=== PATIENT | female | born 1970 | race Caucasian/White ===

== ENCOUNTER → 2017-10-29 16:53 | Outpatient (CLI) | payer BC, SELFPAY ==
--- NOTE | 2017-10-29 16:58 | MRI_ITS ---
STUDY: MRI BRAIN WITH AND WITHOUT CONTRAST REASON FOR EXAM: Female, 46 years old. Headache. TECHNIQUE: Standardized multiplanar fat and water weighted pulse sequences were obtained. 7 ml of Gadavist contrast material was administered intravenously for the contrast portion of the examination. Several images are limited by patient motion. COMPARISON: Prior comparable comparison studies are not available for review at this time. FINDINGS: Normal size of the ventricles and extra-axial spaces for the patient's age. There is a small focus of abnormal T2 hyperintensity within the high right frontal lobe measuring 5.3 mm in size. The white matter has a normal appearance otherwise. This is difficult to see on the T1 images. There is no evidence for recent intracranial ischemia or other cause of cytotoxic edema on diffusion weighted imaging (DWI). Normal T2* images of the brain without demonstrated susceptibility artifact. There is no demonstrated hemosiderin stain. Normal bilateral basal ganglia. Normal thalami. There is no extra-axial fluid accumulation. Normal flow voids within the major intracranial circulation suggesting patency by spin echo criteria. Normal venous enhancement. There is no enhancing intra-axial or extra-axial abnormality. Normal sella turcica, pituitary gland, infundibular stalk, optic chiasm and hypothalamus. Normal tectal plate and pineal gland. Normal midbrain, gracie and medulla. Normal cerebellum. Normal basal cisterns. Normal bilateral temporal bones. Normal bilateral internal auditory canals. No demonstrated orbital abnormality, within the constraints of a routine brain study. There is a small left maxillary mucous retention cyst. Normal calvarium and skull base. Normal visualized soft tissue structures. Normal visualized upper cervical spine. MRI/Brain W/WO Contrast IMPRESSION: 1. Isolated focus of abnormal signal in the white matter of the right frontal lobe. This is nonspecific in its appearance. Differential considerations include sequela of acute inflammatory process and neoplastic etiologies. Follow-up is suggested. 2. No MR evidence for acute infarct. Electronically Signed: Ruth Gayle MD at 11:15 EST , Service support ,
== END ==
LOC: MRI 16:53
PROVIDERS: Family Provider Family Medicine; PCP Family Medicine; Visit Provider Psychiatry & Neurology Neurology
DX: R51 Headache (principal); Z79.899 Other long term (current) drug therapy
CPT/HCPCS: 70553; A9585

== ENCOUNTER → 2017-11-30 17:00 | Outpatient (CLI) | payer BC, SELFPAY ==
--- NOTE | 2017-11-29 | IMM_PTH ---
PATIENT: SARAH BAZAN LOC: [facility] U#:[id number] AGE/SX: 54/F ROOM: RE11/30/[address]: Dr. Anny Marie DO : 1970 BED: DIS: SPEC #: [id number] RECD: 12/02/17 11:35 STATUS: JEFF YONI #: [id number] RIGO: 11/29/17 00:[address]: Anny Marie DEPT: IMMUNOHISTOCHEMISTRY RECD BY: Bety Cazares Tissues: Skin of arm Procedures: KI-67 (add) MACRO (add) P53 (add) Pankeratin (add) MELAN-A (initial) S-100 (add) PHYSICIAN & INSTITUTION [place] [id number] SPECIMEN INFORMATION: Tissue Source: Left upper arm Clinical Info: Atypical nevus Specimen Number: [id number] CPT code: 88752, 36185 x5 METHODOLOGY: Deparaffinized sections of prefer/formalin-fixed tissue or PAP/DQ stained slides are incubated with monoclonal/polyclonal antibodies/oligonucleotide probes. Localization is made via biotin free immunoperoxidase method. Appropriate controls are performed and reacted as expected. Results on target cell population are indicated in the following table: RESULTS: ANTIBODY / CLONE RESULT S-100 (4C4.9) positive Melan A (A103) positive AE1-3 (AE1/AE3/PCK26) negative P53 (DO-7) negative Ki-67 (30-9) negative Macro (HAM-56) negative These tests were developed and their performance characteristics determined by [facility]. They may not have been cleared or approved by the U.S. Food and Drug Administration. The FDA has determined that such clearance or approval is not necessary. INTERPRETATION: Left upper arm, excisional biopsy: Consistent with compound nevus. AM:octavio 12/03/17
--- NOTE | 2017-11-29 17:30 | LES_PTH ---
PATIENT: SARAH BAZAN LOC: [facility] U#:[id number] AGE/SX: 54/F ROOM: RE11/30/[address]: Dr. Anny Marie DO : 1970 BED: DIS: SPEC #: [id number] RECD: 12/01/17 12:53 STATUS: JEFF YONI #: [id number] RIGO: 11/29/17 17:[address]: Anny Marie DEPT: SURGICAL PATHOLOGY RECD BY: Surinder Berry Tissues: Skin of arm Procedures: Surgery Specimen Level IV HEADER OPERATION: Left upper arm excisional biopsy PRE-OP DIAGNOSIS: Atypical nevus, rule out melanoma TISSUE SUBMITTED: Left upper arm MICROSCOPIC DIAGNOSIS Lesion of left upper arm, biopsy: Compound nevus with predominantly intradermal component. AM:octavio 12/02/17 COMMENT Immunohistochemistry ([id number]) supports the above diagnosis. Case has been reviewed in consultation with Dr. Felder who concurs with the above diagnosis. IDC:SJ MICROSCOPIC DESCRIPTION Slides are reviewed. GROSS DESCRIPTION Received in fixative is one container labeled with the patient's name and designated left upper arm. The specimen consists of two irregular fragments of sandoval soft tissue that in aggregate measure 0.5 x 0.3 x 0.1 cm. The specimen is totally submitted in one cassette. / AM:octavio 12/01/17 TC:5 CPT: 75080
== END ==
PROVIDERS: Family Provider Family Medicine; PCP Family Medicine; Visit Provider Family Medicine
DX: D22.62 Melanocytic nevi of left upper limb, including shoulder (principal)
CPT/HCPCS: 88305; 88341; 88342

== ENCOUNTER → 2018-02-04 16:30 | Outpatient (CLI) | payer BC, SELFPAY ==
[2018-02-05 13:48] LABS: Chlamydia Trachomatis by PCR Negative (Negative); Neisserai gonorrhoeae by PCR Negative (Negative); Probe Check PASS; Sample Adequacy Control PASS; Specimen Processing Control PASS
[2018-02-11 10:16] LABS: HPV HC, High Risk Negative (Negative)
== END ==
PROVIDERS: Visit Provider Family Medicine
DX: Z12.4 Encounter for screening for malignant neoplasm of cervix (principal); Z11.3 Encounter for screening for infections with a predominantly sexual mode of transmission; N92.6 Irregular menstruation, unspecified; N93.0 Postcoital and contact bleeding
CPT/HCPCS: 87491; 87591; 87624; 88175; G0145

== ENCOUNTER → 2018-02-09 16:18 | Outpatient (CLI) | payer BC, SELFPAY ==
--- NOTE | 2018-02-09 16:42 | US_ITS ---
STUDY: ULTRASOUND TRANSVAGINAL CLINICAL: Female, 47 years old. Abnormal uterine bleeding TECHNIQUE: Transvaginal COMPARISON: None. FINDINGS: Normal uterine size measuring 8.5 x 4.6 x 3.9 cm in maximal craniocaudal dimension. There is an anterior fibroid at uterine body measuring 11 x 9 mm. Normal endometrial thickness measuring 8 mm and appears hyperechoic. There are no endometrial masses, and there is no fluid in the endometrial cavity. Nabothian cyst at the uterine cervix. Normal right ovary, measuring 1.8 x 1.5 x 1.1 cm. There are multiple follicles without a dominant cyst. Normal left ovary, measuring 2.2 x 2.1 x 1.5 cm. There is a 1.2 cm cyst. There is no free fluid in the pelvis. The urinary bladder has a volume of 181 cc during imaging. US/Pelvic (Non ) IMPRESSION: Dominant follicle or cyst of the left ovary. Nabothian cyst. Uterine fibroid. Electronically Signed: James Rivera DO at 22:38 EDT Tel [phone], Service support ,
--- NOTE | 2018-02-09 16:52 | US_ITS ---
STUDY: ULTRASOUND TRANSVAGINAL CLINICAL: Female, 47 years old. Abnormal uterine bleeding TECHNIQUE: Transvaginal COMPARISON: None. FINDINGS: Normal uterine size measuring 8.5 x 4.6 x 3.9 cm in maximal craniocaudal dimension. There is an anterior fibroid at uterine body measuring 11 x 9 mm. Normal endometrial thickness measuring 8 mm and appears hyperechoic. There are no endometrial masses, and there is no fluid in the endometrial cavity. Nabothian cyst at the uterine cervix. Normal right ovary, measuring 1.8 x 1.5 x 1.1 cm. There are multiple follicles without a dominant cyst. Normal left ovary, measuring 2.2 x 2.1 x 1.5 cm. There is a 1.2 cm cyst. There is no free fluid in the pelvis. The urinary bladder has a volume of 181 cc during imaging. US/Transvaginal Non- IMPRESSION: Dominant follicle or cyst of the left ovary. Nabothian cyst. Uterine fibroid. Electronically Signed: James Rivera DO at 22:38 EDT Tel [phone], Service support ,
== END ==
PROVIDERS: Family Provider Family Medicine; PCP Family Medicine; Visit Provider Family Medicine
DX: N93.9 Abnormal uterine and vaginal bleeding, unspecified (principal)
CPT/HCPCS: 76830; 76856; 93976

== ENCOUNTER → 2018-02-19 11:00 | Outpatient (CLI) | payer BC, SELFPAY ==
--- NOTE | 2018-02-19 | EMB_PTH ---
PATIENT: SARAH BAZAN LOC: [facility] U#:[id number] AGE/SX: 54/F ROOM: RE02/19/[address]: Dr. Betty Hook MD : 1970 BED: DIS: SPEC #: [id number] RECD: 02/22/18 08:15 STATUS: JEFF YONI #: [id number] RIGO: 02/19/18 00:[address]: Betty Hook DEPT: SURGICAL PATHOLOGY RECD BY: Bety Cazares Tissues: Endometrium, NOS Procedures: Surgery Specimen Level IV HEADER OPERATION: Endometrial biopsy PRE-OP DIAGNOSIS: Abnormal uterine bleeding TISSUE SUBMITTED: Endometrial lining MICROSCOPIC DIAGNOSIS Endometrium, biopsy: Polypoid fragments of endometrium with mild disorder. Necrotic tissue with fibrinopurulent exudate. Chronic inflammation. AM:octavio 02/23/18 COMMENT Infarcted and necrotic polyp is a possibility. Clinical correlation is suggested. Case has been reviewed in consultation with Dr. Felder who concurs with the above diagnosis. IDC:SJ MICROSCOPIC DESCRIPTION Slides are reviewed. GROSS DESCRIPTION Received is one container labeled with the patient's name and not further designated. The specimen consists of multiple fragments of hemorrhagic soft tissue that in aggregate measure 2 x 1 x 0.1 cm. The specimen is totally submitted in one cassette. / FERNANDA:octavio 02/22/18 TC:2 [facility]: [id number]
--- NOTE | 2018-02-19 11:00 | DT_ITS ---
This patient was seen during an EMR downtime February 15, 2018 - February 22, 2018. This patient may have a combination of paper and electronic documentation or all paper documentation. All documentation is viewable within the e-chart portion of [employer] for each patient visit.
== END ==
PROVIDERS: Visit Provider Obstetrics & Gynecology
DX: N93.9 Abnormal uterine and vaginal bleeding, unspecified (principal)
CPT/HCPCS: 88305

== ENCOUNTER → 2018-05-11 10:24 | Outpatient (CLI) | payer BC, SELFPAY ==
[2018-05-11 10:39] LABS: Absolute Lymphocyte Count 1.63 X10^3/ul (0.83-4.51); Absolute Neutrophil Count 3.6 X10^3/uL (2.0-7.7); Basophil# 0.03 X10^3/uL; Basophil% 0.5 % (0-1); Eosinophil# 0.22 X10^3/uL; Eosinophils% 3.8 % (0-5); Hematocrit 41.7 % (37-47); Hemoglobin 13.6 g/dl (12.0-15.0); Lymphocyte # 1.63 X10^3/ul (4.0); Lymphocyte % 28.2 % (19-41); Mean Corp Hgb Conc 32.6 g/gl (32-36); Mean Corpuscular Hgb 30.3 pg (27.0-32.0); Mean Corpuscular Volume 92.9 fL (81-99); Mean Platelet Vol. 10.7 fl (6.2-12.0); Monocyte# 0.28 X10^3/uL; Monocyte% 4.8 % (0-10); Neutrophil # 3.62 X10^3/uL (2.7-7.7); Neutrophil % 62.5 % (47-70); POSITIVE COUNT NO; POSITIVE DIFFERENTIAL NO; POSITIVE MORPHOLOGY NO; Platelet Count 314 K/mm3 (150-450); RBC Distribution Width CV 13.7 % (11.6-14.6); RBC Distribution Width SD 46.7 fl (35.1-43.9); Red Blood Count 4.49 M/mm3 (4.2-5.4); White Blood Count 5.8 K/mm3 (4.4-11.0)
== END ==
PROVIDERS: Family Provider Family Medicine; PCP Family Medicine; Visit Provider Obstetrics & Gynecology
DX: N93.9 Abnormal uterine and vaginal bleeding, unspecified (principal)
CPT/HCPCS: 36415; 85025

== ENCOUNTER 2018-06-09 12:13 | Day surgery (SDC) | payer BC, SELFPAY ==
[2018-06-09] VITALS (9 sets, daily range): BP systolic 109–117; BP diastolic 71–78; PULSE 64–76; RESP 16–18; TEMP 36.6–37; O2SAT 95–100; BMI 27.7
[2018-06-09 12:40] LABS: Internal QC Validated? YES +Cl - CLEAR BKGD; Pregnancy, Urine Negative Negative
[2018-06-09 12:43] LABS: Hematocrit 40.1 % (37-47); Hemoglobin 13.7 g/dl (12.0-15.0); Mean Corp Hgb Conc 34.2 g/gl (32-36); Mean Corpuscular Hgb 30.9 pg (27.0-32.0); Mean Corpuscular Volume 90.3 fL (81-99); Mean Platelet Vol. 10.9 fl (6.2-12.0); Platelet Count 269 K/mm3 (150-450); RBC Distribution Width CV 13.3 % (11.6-14.6); RBC Distribution Width SD 43.3 fl (35.1-43.9); Red Blood Count 4.44 M/mm3 (4.2-5.4); White Blood Count 6.7 K/mm3 (4.4-11.0)
[2018-06-09 12:46] LABS: Scan Indicated on CBC? Y/N NO
--- NOTE | 2018-06-09 13:50 | UTC_PTH ---
PATIENT: SARAH BAZAN LOC: [facility] U#:[id number] AGE/SX: 47/F ROOM: RE06/09/[address]: Dr. Betty Hook MD : 1970 BED: DIS: 06/09/2018 SPEC #: [id number] RECD: 06/09/18 16:17 STATUS: JEFF YONI #: [id number] RIGO: 06/09/18 13:[address]: Betty oHok DEPT: SURGICAL PATHOLOGY RECD BY: Manuel Clarke ENTERED: 06/10/18 09:27 SP TYPE: NORA PECK DR: Dr. Anny Marie DO Tissues: Uterine cervix, NOS Procedures: Surgery Specimen Level IV HEADER OPERATION: Hysterectomy, dilation and curettage, Fany PRE-OP DIAGNOSIS: Abnormal uterine bleeding TISSUE SUBMITTED: Uterine curettings MICROSCOPIC DIAGNOSIS Uterine curettings: Weakly proliferative endometrium and focal area consistent with exogenous hormone effects. SJ:octavio 06/11/18 COMMENT Please make reference to previous specimen ([id number]) endometrium, biopsy with diagnosis of polypoid fragments of endometrium with mild disorder, necrotic tissue with fibrinopurulent exudate and chronic inflammation. MICROSCOPIC DESCRIPTION Slides are reviewed. GROSS DESCRIPTION Received in fixative is one container labeled with the patient's name and designated uterine curettings. The specimen consists of multiple fragments of hemorrhagic soft tissue that in aggregate measure 2.5 x 2 x 0.3 cm. The entire specimen is submitted in one cassette. / FERANNDA:octavio 06/10/18 TC:5 CPT: 77186
--- NOTE | 2018-06-09 14:37 | PCM.HP.STD ---
Problem List (1) Thickened endometrium Status: Acute History of Present Illness Date of Admission: 06/09/18 The patient is a 47 year old F prsents with AUB for the last few months failed OCP. normal us plans d and c hysterosocpy endometrial ablation. Past Medical History Medical History: Medical History (Last Reviewed 03/03/18 @ 15:17 by Brianda Mcneal) delivery due to maternal disorder Allergies codeine Adverse Reaction (Intermediate, Verified 06/09/18 12:54) Vomiting Home Medications: Ambulatory Orders Medication Instructions Recorded Multivitamin [Multiple Vitamins] 1 tab PO DAILY 02/25/17 Topiramate [Topamax] 100 mg PO BID 03/06/17 Vitamin B Complex 1 ea PO DAILY 03/06/17 buPROPion XL [Wellbutrin Xl] 300 mg PO DAILY 03/06/17 promethazine 12.5 mg tablet 12.5 mg PO Q6H PRN #30 tab 04/19/18 megestrol 40 mg tablet 40 mg PO DAILY #60 tab 05/12/18 Ascorbic Acid [Vitamin C] 500 mg PO DAILY@0800 06/07/18 Citalopram [Celexa] 20 mg PO DAILY 06/07/18 Famotidine [Pepcid] 20 mg PO DAILY 06/07/18 Levocetirizine Dihydrochloride 5 mg PO DAILY 06/07/18 [Xyzal] Magnesium Oxide [Magnesium] 400 mg PO BID 06/07/18 Montelukast [Singulair] 10 mg PO DAILY 06/07/18 Zorisamide 50 mg PO BID 06/07/18 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 Smoking Status: Current every day smoker Tobacco Use: Non-smoker Review of Systems Constitutional: Denies: Fever, Malaise Eyes: Denies: Blurred vision, Vision Change HEENT: Denies: Head Aches, Visual Changes Cardiovascular: Denies: Chest Pain, Palpitations Respiratory: Denies: Cough, Shortness of Breath, Wheezing Gastrointestinal: Denies: Abdominal Pain, Diarrhea, Nausea, Vomiting Genitourinary: Denies: Dysuria, Hematuria Musculoskeletal: Denies: Joint Pain, Muscle pain Skin: Denies: Lesions, Rash Neurological: Denies: Blurred vision, Focal weakness, Headaches Psychiatric: Denies: Anxiety, Depression Endocrine: Denies: Heat/ Cold Intolerance Hematologic/ Lymphatic: Denies: Easy Bruising, Easy Bleeding VTE Information - Inpt Only VTE Present on Admission: No Patient Problems: Active and Suspected Problems (Last Reviewed 03/03/18 @ 15:17 by Brianda Mcneal) Thickened endometrium (Acute) - Physical Exam General: Alert, Oriented x3, Cooperative HEENT: Atraumatic, PERRLA, EOMI, Normocephalic Neck: Supple, No JVD, Negative Carotid Bruits Lungs: Clear to auscultation, Normal air movement Cardiovascular: Regular rate, No murmurs Abdomen: Bowel Sounds Present, Soft, Non Tender Extremities: No edema, Capillary Refill Less than 3 Seconds Skin: No rashes, No breakdown Musculoskeletal: No Tenderness to Palpation of Joints or Extremities Neurological: Cranial nerves II-XII grossly intact Psych/Mental Status: Normal Affect, Appropriate Vital Signs Temp Pulse Resp BP Pulse Ox 98.6 F 74 16 116/72 97 06/09/18 12:57 06/09/18 12:57 06/09/18 12:57 06/09/18 12:57 06/09/18 12:57 Oxygen Delivery Method Room Air Weight: 151 lb 12.8 oz Body Mass Index (BMI) 27.7 Laboratory Tests Past 24 Hrs 06/09/18 06/09/18 06/09/18 12:25 12:35 12:35 WBC 6.7 RBC 4.44 Hgb 13.7 Hct 40.1 MCV 90.3 MCH 30.9 MCHC 34.2 RDW 13.3 RDW Differential 43.3 Plt Count 269 MPV 10.9 Urine Test Negative Blood Type A POSITIVE Antibody Screen NEGATIVE Assessment/Plan All Active Problems (Last Reviewed 03/03/18 @ 15:17 by Brianda Mcneal) Thickened endometrium (Acute) 47 yo with AUB plan d and c hysteroscopy and radha ablation. discussed surgical risks including risks of anesthesia, infection, bleeding, injury to bowel, bladder or blood vessels, and patient wishes to proceed with surgery.
--- NOTE | 2018-06-09 14:50 | PCM.OPRPT ---
Problem List (1) Thickened endometrium Status: Acute (2) Abnormal uterine bleeding Status: Acute Report of Operation Date of Procedure: 06/09/18 Pre-Operative Diagnosis: aub Post-Operative Diagnosis: same Surgery/Procedure Performed:: d and c hysteroscopy fany ablation Description of Surgical Findings:: same Type of Anesthesia:: Local MAC Special Medications: none Specimen's removed: emc Drains: none Estimated Blood Loss (mL): minimal Fluids Replaced: crystalloid Description of Procedure: Patient was prepped and draped in a normal sterile fashion under MAC anesthesia. A weighted speculum was placed in the vagina and the anterior lip of the cervix was grasped with a single-tooth tenaculum. A paracervical block was placed with 1% lidocaine. Cervix was progressively dilated to allow passage of a 5 mm hysteroscope. The lining was fully visualized and noted to have no abnormality. Uterine sounded to 8.5 cm. Curettage was performed and moderate amount of tissue was obtained, sent to pathology. The Fany device was opened and the cavity length was found to be 4.5 cm. Device was inserted into the uterus and balloon inflated and device deployed. Integrity of the cavity was confirmed and a 2 minute treatment cycle was completed without complication. All instruments were removed from the vagina and excellent hemostasis was noted. Patient was awoken and taken to recovery in stable condition. Grafts/Implants Used: none - Complications none - Admit VTE Documentation VTE Present on Admission: No
--- NOTE | 2018-06-09 15:21 | DCINST_ITS ---
Discharge Diet: No Restrictions Discharge Activity: Return to Normal Activity, May Shower, May Take a Tub Bath Allergies/Adverse Reactions: Allergies codeine Adverse Reaction (Intermediate, Verified 06/09/18 12:54) Vomiting Medications to take at Discharge Multivitamin [Multiple Vitamins] 1 tab PO DAILY 02/25/17 Topiramate [Topamax] 100 mg PO BID 03/06/17 Vitamin B Complex 1 ea PO DAILY 03/06/17 buPROPion XL [Wellbutrin Xl] 300 mg PO DAILY 03/06/17 promethazine 12.5 mg tablet 12.5 mg PO Q6H PRN #30 tab 04/19/18 megestrol 40 mg tablet 40 mg PO DAILY #60 tab 05/12/18 Ascorbic Acid [Vitamin C] 500 mg PO DAILY@0800 06/07/18 Citalopram [Celexa] 20 mg PO DAILY 06/07/18 Famotidine [Pepcid] 20 mg PO DAILY 06/07/18 Levocetirizine Dihydrochloride [Xyzal] 5 mg PO DAILY 06/07/18 Magnesium Oxide [Magnesium] 400 mg PO BID 06/07/18 Montelukast [Singulair] 10 mg PO DAILY 06/07/18 Zorisamide 50 mg PO BID 06/07/18 Primary Care Physician: Anny Marie DO [Primary Care Provider] - Test Results: Test results from this visit will be discussed in further detail at your follow- up appointment, if applicable. Please Follow Up With: Betty Hook MD - [phone]
== END 2018-06-09 16:51 | disposition home or self-care (01) ==
LOC: SDC 12:14 → AC 12:15
PROVIDERS: Family Provider Family Medicine; PCP Family Medicine; Visit Provider Obstetrics & Gynecology
PROC: 0UDB8ZZ Extraction of Endometrium, Via Natural or Artificial Opening Endoscopic (ICD-10-PCS; CPT 58558; principal; 2018-06-09 13:40)
DX: N93.9 Abnormal uterine and vaginal bleeding, unspecified (principal); R93.8 Abnormal findings on diagnostic imaging of other specified body structures; K21.9 Gastro-esophageal reflux disease without esophagitis; F32.9 Major depressive disorder, single episode, unspecified; F41.9 Anxiety disorder, unspecified; F17.200 Nicotine dependence, unspecified, uncomplicated; Z79.899 Other long term (current) drug therapy
CPT/HCPCS: 58563; 81025; 85027; 86850; 86900; 88305; J7120

== ENCOUNTER → 2018-07-15 13:22 | Outpatient (CLI) | payer BC, SELFPAY | PROVIDERS: Family Provider Family Medicine; PCP Family Medicine; Visit Provider Family Medicine | DX: R19.7 Diarrhea, unspecified (principal) | CPT/HCPCS: 83630; 87177; 87209; 87493; 87506 ==

== ENCOUNTER 2019-07-18 20:56 | Observation (INO) | payer BC, SELFPAY ==
[2019-07-18 20:57] VITALS: BP 149/74; PULSE 67; RESP 14; TEMP 36.4; O2SAT 100; BMI 31.1
--- NOTE | 2019-07-18 21:50 | CT_ITS ---
STUDY: CT ABDOMEN AND PELVIS WITHOUT CONTRAST REASON FOR EXAM: Female, 48 years old. Right flank pain and nausea RADIATION DOSAGE (If Supplied By Facility): CTDIvol = ( 11.25 ) mGy, DLP = ( 533.84 ) mGycm TECHNIQUE: Transaxial images were obtained from the dome of the diaphragm to the symphysis pubis without oral contrast, and without intravenous contrast. Sagittal and coronal images were reconstructed. Individualized dose optimization techniques were used for this CT. COMPARISON: None. FINDINGS: The visualized lung bases are unremarkable. The visualized portions of the heart are within normal limits. Normal liver. There are multiple gallstones present in mildly distended gallbladder without definitive evidence for acute inflammation.. Normal spleen. Normal pancreas. Normal bilateral adrenal glands. Normal right kidney. Normal left kidney. Normal visualized stomach. Normal small intestine. Mild diverticular changes in the sigmoid colon without evidence for acute diverticulitis. The appendix is visualized and appears normal. Normal abdominal aorta. Normal inferior vena cava. Normal retroperitoneum. Incompletely distended thick-walled bladder likely of no significance. Normal abdominal wall. Lumbar spine demonstrates mild spondylosis CT/Abdomen/Pelvis without Cont IMPRESSION: Mildly distended gallbladder containing multiple stones without definitive evidence for acute cholecystitis. This may be further assessed with HIDA scan if clinically warranted Mild diverticular changes in the sigmoid colon without evidence for acute diverticulitis Electronically Signed: Kwame Campos MD at 22:39 EST , Service support ,
--- NOTE | 2019-07-18 21:51 | ED.DCSUM_ITS ---
History of Present Illness Chief Complaint: Abd Pain Informant: Patient Onset: Today Context: Gradual Onset Current Severity: Moderate Maximum Severity: Moderate Narrative: Patient presents with abdominal pain and distention that started this afternoon around 230. Patient states she ate lunch today and had a bowel movement around 1 PM. She started noticing mid abdominal pain wrapping around the right flank and up towards the right shoulder around 230. She states she has not been passing gas. She is been nauseated but no vomiting. She denies fever. Past surgical history significant only for . Past Medical History - Allergies and Home Meds Allergies/Adverse Reactions: Allergies codeine Adverse Reaction (Intermediate, Verified 07/18/19 20:59) Vomiting Primary Care Physician: Anny Marie DO [Primary Care Provider] - Prior records reviewed: Yes Past Medical History: - - Reviewed Surgical History: - - Smoking Status: Current every day smoker Review of Systems General: Denies: Chills, Fever Eyes: Denies: Visual changes - bilaterally ENT: Denies: Bilateral ear pain Cardiovascular: Denies: Chest pain Respiratory: Denies: Dyspnea, Cough Gastrointestinal: Reports: Abdominal pain, Nausea. Denies: Vomiting Genitourinary: Denies: Dysuria Musculoskeletal: Denies: Extremity Pain Skin: Denies: Rash Hematologic: Denies: Easy bruising Allergy: Denies: Uticaria Physical Exam Vital Signs/Narrative: Vital Signs Temp Pulse Resp BP Pulse Ox 07/18/19 20:57 97.6 F L 67 14 149/74 H 100 Inital Vital Signs reviewed: Yes General: Well nourished, Well developed Head: Normocephalic ENT: Moist mucous membranes Neck: Supple, Nontender Cardiovascular: Regular rate, Regular rhythm Respiratory: No distress, CTA bilaterally Abdomen: Soft, Tender - Mild diffuse tenderness. Abdomen is distended., Hypoactive bowel sounds Extremities: Nontender Skin: Normal color Neurological: Alert, Oriented x3 Psychological: Normal affect Diagnostic/Tx/Re-eval Impressions Abdomen/Pelvis CT 07/18/19 21:50 IMPRESSION: Mildly distended gallbladder containing multiple stones without definitive evidence for acute cholecystitis. This may be further assessed with HIDA scan if clinically warranted Mild diverticular changes in the sigmoid colon without evidence for acute diverticulitis Electronically Signed: Kwame Campos MD at 22:39 EST , Service support , Gallbladder Ultrasound 07/18/19 22:28 IMPRESSION: Cholelithiasis. Distended gallbladder. A positive Aleman sign was elicited as per molding process technician. There is no pericholecystic fluid. Gallbladder wall thickness is borderline. Electronically Signed: Jose Vásquez MD at 23:10 EST , Service support , 07/18/19 21:50 Abdomen/Pelvis without Cont [CT] Stat 07/18/19 22:28 US Gallbladder [Gallbladder] [US] Stat Laboratory Results 07/18/19 07/18/19 07/18/19 21:43 21:43 21:43 WBC 11.0 RBC 4.41 Hgb 13.3 Hct 41.3 MCV 93.7 MCH 30.2 MCHC 32.2 RDW Std Deviation 44.7 H RDW Coeff of [place] 13.0 Plt Count 308 MPV 10.4 Immature Gran % (Auto) 0.300 Neut % (Auto) 60.6 Lymph % (Auto) 29.5 [place] % (Auto) 6.0 Eos % (Auto) 2.7 Baso % (Auto) 0.9 Absolute Neuts (auto) 6.6 Absolute Lymphs (auto) 3.24 Nucleated RBC % 0 Sodium 141 Potassium 3.9 Chloride 109 H Carbon Dioxide 28.0 Anion Gap 4 L BUN 13 Creatinine 0.98 Estim Creat Clear Calc 55.52 Est GFR (MDRD) Af Amer 78 Est GFR (MDRD) Non-Af 64 BUN/Creatinine Ratio 13.3 Glucose 101 Calcium 9.2 Total Bilirubin 0.30 Direct Bilirubin < 0.05 AST 14 L ALT 31 Alkaline Phosphatase 79 Total Protein 7.3 Albumin 3.7 Globulin 3.6 Lipase 242 Urine Color Yellow Urine Clarity Sl Cloudy Urine pH 7.0 Ur Specific [place] 1.010 Urine Protein Negative Urine Glucose (UA) Normal Urine Ketones Negative Urine Occult Blood Negative Urine Nitrite Negative Urine Bilirubin Negative Urine Urobilinogen Normal Ur Leukocyte Esterase Negative Urine RBC 0 SEEN Urine WBC 0 SEEN Ur Squamous Epith Cells 0-5 SEEN Urine Bacteria 0 SEEN Urine Mucus 0 SEEN - Medical Decision Making Patient was given morphine, Zofran, and IV fluids. After returning from imaging she reported only minimal improvement in her pain and was given a dose of Dilaudid. At this time test results are discussed with her. She states she still has significant right-sided pain with only minimal improvement after the pain meds. Imaging studies are most consistent with gallbladder problems. Her gallbladder wall is borderline thickened, she does have gallstones, and does have a positive Aleman sign on exam. Dr Disla presented to the emergency room to evaluate the patient. He believes the patient has a stone lodged in the gallbladder neck. He will admit the patient with plan to take her to the OR tomorrow. She will be given antibiotics on the floor. ED Disposition - Plan for ED Patient: Disposition: Acute Care Hospital [facility] Diagnosis: Cholecystitis Referrals: Anny Marie DO [Primary Care Provider] -
[2019-07-18] MEDS: Morphine 4 MG/ML Syringe IV (22:00)
[2019-07-18] MEDS: Ondansetron 4 MG/2 ML Vial IV (22:00)
[2019-07-18] MEDS: 0.9% Normal Saline 1,000 ML 150 ML IV (22:00)
[2019-07-18 22:02] LABS: Bacteria 0 SEEN /hpf (None Seen); Mucous, Urine 0 SEEN /hpf (<or=2+); Red Blood Cells-Urine 0 SEEN /hpf (0-5); White Blood Cells 0 SEEN /hpf (0-5)
[2019-07-18 22:10] LABS: Absolute Lymphocyte Count 3.24 X10^3/uL (0.83-4.51); Absolute Neutrophil Count 6.6 X10^3/uL (2.0-7.7); Basophil% 0.9 % (0-1); Eosinophils% 2.7 % (0-5); Hematocrit 41.3 % (37-47); Hemoglobin 13.3 g/dL (12.0-15.0); Lymphocyte # 3.24 X10^3/ul (4.0); Lymphocyte % 29.5 % (19-41); Mean Corp Hgb Conc 32.2 g/dL (32-36); Mean Corpuscular Hgb 30.2 pg (27.0-32.0); Mean Corpuscular Volume 93.7 fL (81-99); Mean Platelet Vol. 10.4 fl (6.2-12.0); Monocyte# 0.66 X10^3/uL; NRBC Flagged by Analyzer 0 % (0-5); Neutrophil # 6.64 X10^3/uL (2.7-7.7); Neutrophil % 60.6 % (47-70); Platelet Count 308 K/mm3 (150-450); RBC Distribution Width SD 44.7 fl (35.1-43.9); Red Blood Count 4.41 M/mm3 (4.2-5.4)
[2019-07-18 22:26] LABS: AST(SGOT) 14 U/L (15-37); Alanine Aminotransfer ALT/SGPT 31 U/L (13-56); Albumin, Serum 3.7 g/dL (3.2-5.0); Alkaline Phosphatase 79 U/L (45-117); Anion Gap 4 (5-15); BUN 13 mg/dL (7-18); BUN/Creat Ratio 13.3 RATIO (10-20); Bilirubin, Direct < 0.05 mg/dL (0.00-0.30); Calcium,Total 9.2 mg/dL (8.5-10.1); Chloride 109 mmol/L (98-107); Creatinine, Serum 0.98 mg/dL (0.55-1.02); EST Glomerular Filtration Rate 64 mL/min (>60); Est Glom Filt Rate - Afr Amer 78 mL/min (>60); Estimated Creatinine Clearance 55.52 ml/min; Globulin 3.6 g/dL (2.2-4.2); Glucose 101 mg/dL (74-106); Lipase 242 U/L (73-393); Potassium 3.9 mmol/L (3.5-5.1); Protein, Total 7.3 g/dL (6.4-8.2); Sodium Level 141 mmol/L (136-145)
--- NOTE | 2019-07-18 22:28 | US_ITS ---
STUDY: ABDOMINAL ULTRASOUND - RIGHT UPPER QUADRANT REASON FOR VISIT: Female, 48 years old right upper quadrant pain TECHNIQUE: Ultrasound evaluation of the right upper quadrant was performed with real-time and static burks-scale imaging. TECHNICAL QUALITY: Adequate. COMPARISON: None. FINDINGS: Liver: The liver measures 16.4 cm. There is normal echogenicity of the liver. The bile ducts are within normal limits. There is hepatic color flow. The direction of portal flow is hepatopetal. There is no demonstrated mass lesion. Gallbladder: There is a markedly distended gallbladder. The gallbladder wall measures 3 mm. There is a positive sonographic Aleman's sign. There is no pericholecystic fluid. There are multiple echogenic structures within the gallbladder, consistent with multiple gallstones. Common Bile Duct (C.B.D.): The common bile duct measures 5 mm. Pancreas: Normal size of the head, body and tail of the pancreas. There is normal echogenicity of the pancreas. There is no demonstrated pancreatic mass or cyst. Right Kidney: Normal size of the right kidney. The right kidney measures 10.0 x 4.9 x 4.2 cm. Normal renal cortex. The right cortex measures 1.2 cm. There is no demonstrated renal mass or cyst. There is no right hydronephrosis. US/Gallbladder IMPRESSION: Cholelithiasis. Distended gallbladder. A positive Aleman sign was elicited as per composite bond technician. There is no pericholecystic fluid. Gallbladder wall thickness is borderline. Electronically Signed: Jose Vásquez MD at 23:10 EST , Service support ,
[2019-07-18 22:38] LABS: Color, Urine Yellow (Yellow); Urine Clarity Sl Cloudy (Clear)
[2019-07-18 22:39] LABS: Glucose, Dipstick Normal (Normal); Ketone-Dipstick Negative (Negative); Leukocyte Esterase-Dipstick Negative /ul (Negative); Nitrite-Dipstick Negative (Negative); Occult Blood-Urine Negative /ul (Negative); Protein-Dipstick Negative (Negative); Urine Bilirubin Dipstick Negative (Negative); Urine Urobilinogen Normal (Normal)
[2019-07-18 22:44] LABS: Squamous Epithelial Cells - UA 0-5 SEEN /hpf (5-10)
[2019-07-18] MEDS: HYDROmorphone 0.5 MG/0.5 ML SYRINGE IV ×2 (23:03→23:48)
[2019-07-18 23:08] VITALS: BP 122/57; PULSE 60; RESP 17; O2SAT 100
[2019-07-19] VITALS (12 sets, daily range): BP systolic 94–150; BP diastolic 52–88; PULSE 62–85; RESP 12–18; TEMP 36.1–37.1; O2SAT 91–100; BMI 31.9; BMI 32.0; BMI 32.1
--- NOTE | 2019-07-19 00:09 | PCM.HP.STD ---
History of Present Illness Date of Admission: 07/19/19 The patient is a 48 year old F presents with epigastric and right-sided abdominal pain and trace the back. She reports that she ate lunch and the pain started this afternoon. She reports that the pain radiates to the back. She is saying that it is worse in the right upper quadrant in the epigastric region. This is never happened before. She denies fevers or chills. Past Medical History Medical History: Medical History (Last Reviewed 07/05/18 @ 16:24 by Kiersten Alberto) delivery due to maternal disorder Allergies codeine Adverse Reaction (Intermediate, Verified 07/18/19 20:59) Vomiting Home Medications: Ambulatory Orders Medication Instructions Recorded Multivitamin [Multiple Vitamins] 1 tab PO DAILY 02/25/17 Topiramate [Topamax] 100 mg PO BID 03/06/17 Vitamin B Complex 1 ea PO DAILY 03/06/17 buPROPion XL [Wellbutrin Xl] 300 mg PO DAILY 03/06/17 megestrol 40 mg tablet 40 mg PO DAILY #60 tab 05/12/18 Ascorbic Acid [Vitamin C] 500 mg PO DAILY@0800 06/07/18 Citalopram [Celexa] 20 mg PO DAILY 06/07/18 Famotidine [Pepcid] 20 mg PO DAILY 06/07/18 Levocetirizine Dihydrochloride 5 mg PO DAILY 06/07/18 [Xyzal] Magnesium Oxide [Magnesium] 250 mg PO BID 06/07/18 Montelukast [Singulair] 10 mg PO DAILY 06/07/18 Zorisamide 50 mg PO BID 06/07/18 Surgical History: Surgical History (Last Updated 07/05/18 @ 16:25 by Kiersten Alberto) H/O dilation and curettage Z98.890 Fayn ablation 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 Denies: Constipation, Diarrhea, Hematemesis, Hematochezia, Vomiting Genitourinary: Denies: Dysuria Musculoskeletal: Denies: Joint Tenderness Skin: Denies: Dryness, Jaundice Neurological: Reports: Headaches Psychiatric: Denies: Anxiety Hematologic/ Lymphatic: Denies: Anemia VTE Information - Inpt Only VTE Present on Admission: No VTE Mechan Device Prophylaxis: SCD's - Physical Exam Vitals/I&O's: Vital Signs Temp Pulse Resp BP Pulse Ox 97.6 F L 60 17 122/57 H 100 07/18/19 20:57 07/18/19 23:08 07/18/19 23:08 07/18/19 23:08 07/18/19 23:08 Oxygen Delivery Method Room Air Weight: 170 lb Body Mass Index (BMI) 31.1 General: Alert, Oriented x3 HEENT: Atraumatic Lungs: Normal air movement, No rhonchi Cardiovascular: Regular rate, Regular Rhythm Abdomen: Soft, Non-Distended, Tender - Tender in the right upper quadrant with positive Aleman sign Extremities: No clubbing Skin: No rashes Musculoskeletal: No Muscle Wasting Neurological: Cranial nerves II-XII grossly intact Psych/Mental Status: Normal Affect Laboratory Results 07/18/19 21:43: WBC 11.0, RBC 4.41, Hgb 13.3, Hct 41.3, MCV 93.7, MCH 30.2, MCHC 32.2, RDW Std Deviation 44.7 H, RDW Coeff of Hernando 13.0, Plt Count 308, MPV 10.4, Immature Gran % (Auto) 0.300, Neut % (Auto) 60.6, Lymph % (Auto) 29.5, Morton % (Auto) 6.0, Eos % (Auto) 2.7, Baso % (Auto) 0.9, Absolute Neuts (auto) 6.6, Absolute Lymphs (auto) 3.24, Nucleated RBC % 0 07/18/19 21:43: Sodium 141, Potassium 3.9, Chloride 109 H, Carbon Dioxide 28.0, Anion Gap 4 L, BUN 13, Creatinine 0.98, Estim Creat Clear Calc 55.52, Est GFR (MDRD) Af Amer 78, Est GFR (MDRD) Non-Af 64, BUN/Creatinine Ratio 13.3, Glucose 101, Calcium 9.2, Total Bilirubin 0.30, Direct Bilirubin < 0.05, AST 14 L, ALT 31, Alkaline Phosphatase 79, Total Protein 7.3, Albumin 3.7, Globulin 3.6, Lipase 242 07/18/19 21:43: Urine Color Yellow, Urine Clarity Sl Cloudy, Urine pH 7.0, Ur Specific [place] 1.010, Urine Protein Negative, Urine Glucose (UA) Normal, Urine Ketones Negative, Urine Occult Blood Negative, Urine Nitrite Negative, Urine Bilirubin Negative, Urine Urobilinogen Normal, Ur Leukocyte Esterase Negative, Urine RBC 0 SEEN, Urine WBC 0 SEEN, Ur Squamous Epith Cells 0-5 SEEN, Urine Bacteria 0 SEEN, Urine Mucus 0 SEEN Clinical Impression(s) from Imaging Studies Abdomen/Pelvis CT 07/18/19 21:50 IMPRESSION: Mildly distended gallbladder containing multiple stones without definitive evidence for acute cholecystitis. This may be further assessed with HIDA scan if clinically warranted Mild diverticular changes in the sigmoid colon without evidence for acute diverticulitis Electronically Signed: Kwame Campos MD at 22:39 EST , Service support , Gallbladder Ultrasound 07/18/19 22:28 IMPRESSION: Cholelithiasis. Distended gallbladder. A positive Aleman sign was elicited as per engineering technician parking. There is no pericholecystic fluid. Gallbladder wall thickness is borderline. Electronically Signed: Jose Vásquez MD at 23:10 EST , Service support , Current Medications Acetaminophen (Tylenol) 650 mg PO Q6H PRN PRN PRN Reason: Pain Score 1-10/10 Bupropion HCl (Wellbutrin Xl) 300 mg PO DAILY KATHLEEN Sodium Chloride () 1,000 mls @ 150 mls/hr IV .Q6H40M KATHLEEN Last Admin: 07/18/19 22:00 Dose: 150 mls/hr Documented by: Pantoprazole Sodium 40 mg/ (Sodium Chloride) 110 mls @ 330 mls/hr IV Q12 KATHLEEN Sodium Chloride () 1,000 mls @ 125 mls/hr IV .Q8H KATHLEEN Morphine Sulfate () 2 - 4 mg IV Q2H PRN PRN PRN Reason: Pain Score 6-10/10 Ondansetron HCl (Zofran) 4 mg IV Q6H PRN PRN PRN Reason: NAUSEA/VOMITING Assessment/Plan All Active Problems (Last Reviewed 07/05/18 @ 16:24 by Kiersten Alberto) Thickened endometrium (Acute) Abnormal uterine bleeding (Acute) 48-year-old female with cholelithiasis 1. The patient has pain in the right upper quadrant. Her white count is borderline. Her CT scan did not show any pathology in the abdomen except for distended gallbladder. The patient's ultrasound showed a very distended gallbladder. The patient does seem to have a large gallstone in the neck of the gallbladder. I believe the patient is having pain due to this outlet obstruction of the gallbladder. This is likely to convert to acute cholecystitis if not early cholecystitis. I discussed this with the patient in detail and I would recommend admitting the patient and laparoscopic cholecystectomy tomorrow. I will admit the patient and start her on antibiotics and keep her n.p.o. Plan for laparoscopic cholecystectomy tomorrow. 2. I discussed the procedure in detail with the patient. I discussed the risks, benefits, and alternatives of the procedure. I discussed the risks including but not limited to bleeding, infection, injury to surrounding organs such as the liver, bile duct, bowels. I did discuss the possibility of having to convert to an open procedure as well as the possibility that if any injuries occurred this may necessitate further surgery at a tertiary care center. Zurdo Disla MD Pager: [facility] [address] [place] [address] Office:
[2019-07-19] MEDS: 0.9% Normal Saline 1,000 ML 125 ML IV (01:31)
[2019-07-19] MEDS: Piperacil/Tazobactam 3.375 GM/50 ML ML IV ×2 (02:04→05:57)
--- NOTE | 2019-07-19 05:55 | EKG12_ITS ---
Test Reason : AM EKG Blood Pressure : / mmHG Vent. Rate : 063 BPM Atrial Rate : 063 BPM P-R Int : 170 ms QRS Dur : 090 ms QT Int : 448 ms P-R-T Axes : 055 046 059 degrees QTc Int : 458 ms Normal sinus rhythm Nonspecific T wave abnormality Abnormal ECG When compared with ECG of 25-FEB-2017 23:03, No significant change was found Confirmed by MAURI GO, JOSE DAVID ([id number]), health editor MADDIE ODOM ([id number]) on 07/26/2019 3:13:29 PM Referred By: DELFIN Confirmed By:JOSE DAVID DOTSON MD
[2019-07-19 06:26] LABS: Absolute Lymphocyte Count 2.55 X10^3/uL (0.83-4.51); Absolute Neutrophil Count 5.1 X10^3/uL (2.0-7.7); Basophil# 0.08 X10^3/uL; Basophil% 0.9 % (0-1); Eosinophil# 0.28 X10^3/uL; Eosinophils% 3.3 % (0-5); Hematocrit 41.7 % (37-47); Hemoglobin 13.3 g/dL (12.0-15.0); Lymphocyte # 2.55 X10^3/ul (4.0); Lymphocyte % 29.7 % (19-41); Mean Corp Hgb Conc 31.9 g/dL (32-36); Mean Corpuscular Hgb 30.6 pg (27.0-32.0); Mean Corpuscular Volume 95.9 fL (81-99); Mean Platelet Vol. 10.5 fl (6.2-12.0); Monocyte# 0.55 X10^3/uL; Monocyte% 6.4 % (0-10); NRBC Flagged by Analyzer 0 % (0-5); Neutrophil # 5.08 X10^3/uL (2.7-7.7); Neutrophil % 59.2 % (47-70); Platelet Count 294 K/mm3 (150-450); RBC Distribution Width CV 12.9 % (11.6-14.6); Red Blood Count 4.35 M/mm3 (4.2-5.4); White Blood Count 8.6 K/mm3 (4.4-11.0)
[2019-07-19 06:47] LABS: AST(SGOT) 20 U/L (15-37); Alanine Aminotransfer ALT/SGPT 31 U/L (13-56); Albumin, Serum 3.3 g/dL (3.2-5.0); Alkaline Phosphatase 80 U/L (45-117); Anion Gap 6 (5-15); BUN 13 mg/dL (7-18); BUN/Creat Ratio 14.2 RATIO (10-20); Calcium,Total 8.3 mg/dL (8.5-10.1); Chloride 111 mmol/L (98-107); Creatinine, Serum 0.92 mg/dL (0.55-1.02); EST Glomerular Filtration Rate 69 mL/min (>60); Est Glom Filt Rate - Afr Amer 84 mL/min (>60); Estimated Creatinine Clearance 59.15 ml/min; Globulin 3.3 g/dL (2.2-4.2); Glucose 96 mg/dL (74-106); Potassium 3.8 mmol/L (3.5-5.1); Protein, Total 6.6 g/dL (6.4-8.2); Sodium Level 142 mmol/L (136-145)
--- NOTE | 2019-07-19 07:56 | PCM.PN.SRG ---
Patient Problems: Active and Suspected Problems (Last Reviewed 07/05/18 @ 16:24 by Kiersten Alberto) Cholecystitis (Acute) Subjective: Patient states she is doing better this morning. - Physical Exam Vitals/I&O's: Vital Signs Temp Pulse Resp BP Pulse Ox 98.6 F 71 16 107/64 99 07/19/19 07:37 07/19/19 07:37 07/19/19 07:37 07/19/19 07:37 07/19/19 07:37 Oxygen Delivery Method Room Air Weight: 174 lb 13.225 oz Body Mass Index (BMI) 32.1 Intake and Output for Last 24 Hours 07/17/19 07/18/19 07/19/19 23:59 23:59 23:59 Intake Total 568.33 / 568.33 Balance 568.33 / 568.33 General: Alert, Oriented x3 Lungs: Normal air movement Cardiovascular: Regular rate, Regular Rhythm Abdomen: Soft, Non-Distended, Tender - Tender in the right upper quadrant Skin: No rashes Musculoskeletal: No Muscle Wasting Neurological: Cranial nerves II-XII grossly intact Psych/Mental Status: Normal Affect Laboratory Results 07/18/19 21:43: WBC 11.0, RBC 4.41, Hgb 13.3, Hct 41.3, MCV 93.7, MCH 30.2, MCHC 32.2, RDW Std Deviation 44.7 H, RDW Coeff of Hernando 13.0, Plt Count 308, MPV 10.4, Immature Gran % (Auto) 0.300, Neut % (Auto) 60.6, Lymph % (Auto) 29.5, [place] % (Auto) 6.0, Eos % (Auto) 2.7, Baso % (Auto) 0.9, Absolute Neuts (auto) 6.6, Absolute Lymphs (auto) 3.24, Nucleated RBC % 0 07/18/19 21:43: Sodium 141, Potassium 3.9, Chloride 109 H, Carbon Dioxide 28.0, Anion Gap 4 L, BUN 13, Creatinine 0.98, Estim Creat Clear Calc 55.52, Est GFR (MDRD) Af Amer 78, Est GFR (MDRD) Non-Af 64, BUN/Creatinine Ratio 13.3, Glucose 101, Calcium 9.2, Total Bilirubin 0.30, Direct Bilirubin < 0.05, AST 14 L, ALT 31, Alkaline Phosphatase 79, Total Protein 7.3, Albumin 3.7, Globulin 3.6, Lipase 242 07/18/19 21:43: Urine Color Yellow, Urine Clarity Sl Cloudy, Urine pH 7.0, Ur Specific [place] 1.010, Urine Protein Negative, Urine Glucose (UA) Normal, Urine Ketones Negative, Urine Occult Blood Negative, Urine Nitrite Negative, Urine Bilirubin Negative, Urine Urobilinogen Normal, Ur Leukocyte Esterase Negative, Urine RBC 0 SEEN, Urine WBC 0 SEEN, Ur Squamous Epith Cells 0-5 SEEN, Urine Bacteria 0 SEEN, Urine Mucus 0 SEEN 07/19/19 05:40: WBC 8.6, RBC 4.35, Hgb 13.3, Hct 41.7, MCV 95.9, MCH 30.6, MCHC 31.9 L, RDW Std Deviation 46.0 H, RDW Coeff of Hernando 12.9, Plt Count 294, MPV 10.5, Immature Gran % (Auto) 0.500, Neut % (Auto) 59.2, Lymph % (Auto) 29.7, [place] % (Auto) 6.4, Eos % (Auto) 3.3, Baso % (Auto) 0.9, Absolute Neuts (auto) 5.1, Absolute Lymphs (auto) 2.55, Nucleated RBC % 0 07/19/19 05:40: Sodium 142, Potassium 3.8, Chloride 111 H, Carbon Dioxide 25.0, Anion Gap 6, BUN 13, Creatinine 0.92, Estim Creat Clear Calc 59.15, Est GFR (MDRD) Af Amer 84, Est GFR (MDRD) Non-Af 69, BUN/Creatinine Ratio 14.2, Glucose 96, Calcium 8.3 L, Total Bilirubin 0.20, AST 20, ALT 31, Alkaline Phosphatase 80, Total Protein 6.6, Albumin 3.3, Globulin 3.3, Albumin/Globulin Ratio 1.0 Current Medications Acetaminophen (Tylenol) 650 mg PO Q6H PRN PRN PRN Reason: Pain Score 1-10/10 Bupropion HCl (Wellbutrin Xl) 300 mg PO DAILY [facility] Citalopram Hydrobromide (Celexa) 20 mg PO DAILY [facility] Pantoprazole Sodium 40 mg/ (Sodium Chloride) 110 mls @ 330 mls/hr IV Q12 [facility] Last Infusion: 07/19/19 01:51 Dose: Infused Documented by: Sodium Chloride () 1,000 mls @ 125 mls/hr IV .Q8H KATHLEEN Last Infusion: 07/19/19 01:51 Dose: 125 mls/hr Documented by: Piperacillin Sod/Tazobactam Sod (Zosyn) 3.375 gm in 50 mls @ 12.5 mls/hr IV Q8 KATHLEEN Last Admin: 07/19/19 05:57 Dose: 12.5 mls/hr Documented by: Sodium Chloride () 250 mls @ 15 mls/hr IV .[id number] PRN PRN Reason: Saline Flush Loratadine (Claritin) 5 mg PO DAILY [facility] Megestrol Acetate (Megace) 40 mg PO DAILY [facility] Montelukast Sodium (Singulair) 10 mg PO DAILY [facility] Morphine Sulfate () 2 - 4 mg IV Q2H PRN PRN PRN Reason: Pain Score 6-10/10 Morphine Sulfate () 2 - 4 mg IV Q2H PRN PRN PRN Reason: Pain Score 6-10/10 Ondansetron HCl (Zofran) 4 mg IV Q6H PRN PRN PRN Reason: NAUSEA/VOMITING Sodium Chloride () 10 - 40 ml IV UD PRN PRN Reason: SALINE FLUSH Topiramate (Topamax) 100 mg PO BID [facility] Medical Necessity - Tobacco Use Smoking Status: Current every day smoker Tobacco Use: Cigarettes Assessment/Plan All Active Problems (Last Reviewed 07/05/18 @ 16:24 by Kiersten Alberto) Cholecystitis (Acute) Thickened endometrium (Acute) Abnormal uterine bleeding (Acute) 48-year-old female with cholelithiasis and possible acute cholecystitis 1. The patient is having pain in the right upper quadrant and has a large stone lodged in the neck of the gallbladder. I recommend laparoscopic cholecystectomy today. Patient understands the risks and is willing to proceed. She has been started on Zosyn to prevent further acute cholecystitis. Zurdo Disla MD Pager: [facility] [address] [place] [address], [address] [place] [address] Office:
[2019-07-19 08:36] LABS: Internal QC Validated? YES +Cl - CLEAR BKGD; Pregnancy, Urine Negative Negative
--- NOTE | 2019-07-19 09:00 | GALL_PTH ---
PATIENT: SARAH BAZAN LOC: PCU U#:[id number] AGE/SX: 48/F ROOM: [facility] RE07/19/[address]: Dr. Zurdo Disla MD : [id number] BED: 1 DIS: 07/19/2019 SPEC #: [id number] RECD: 07/19/19 12:32 STATUS: JEFF RESherman #: [id number] RIGO: 07/19/19 09:[address]: Zurdo Disla DEPT: SURGICAL PATHOLOGY RECD BY: Surinder Berry ENTERED: 07/19/19 13:12 SP TYPE: [place] DR: Dr. Anny Marie DO Tissues: Gallbladder, NOS Procedures: Surgery Specimen Level III HEADER OPERATION: Laparoscopic cholecystectomy with IOC PRE-OP DIAGNOSIS: Cholelithiasis TISSUE SUBMITTED: Gallbladder MICROSCOPIC DIAGNOSIS Gallbladder, cholecystectomy: Chronic cholecystitis and cholelithiasis. AM:octavio 11/6/19 MICROSCOPIC DESCRIPTION Slides are reviewed. GROSS DESCRIPTION Received is one container labeled with the patient's name and designated gallbladder. The specimen consists of a gallbladder measuring 11 cm in length and up to 4.5 cm in diameter. The external surface is pink-sandoval, smooth and glistening for the most part. Focally it is granular, hemorrhagic and contains cautery artifact. The gallbladder contains green-yellow mucoid bile and multiple multifaceted, greenish-brown stones and stone fragments measuring in aggregate 4 x 4 x 1 cm and 0.5 to 1.5 cm in greatest dimension. The mucosa is bile-stained and without any mass lesions. The gallbladder wall measures up to 0.3 cm in thickness. Electronic Field Service Engineer sections from the gallbladder and the cystic duct are submitted in one cassette. / SJ:rg 07/19/19 TC:[facility]: [id number]
[2019-07-19] MEDS: Lactated Ringers 1,000 ML 100 ML IV (09:15)
--- NOTE | 2019-07-19 09:40 | RAD_ITS ---
STUDY: INTRAOPERATIVE CHOLANGIOGRAM. REASON FOR EXAM: Female, 48 years old. Laparoscopic cholecystectomy. FLUOROSCOPY TIME (if supplied): ( 8.9 seconds ) minutes/seconds. 54 images were submitted in a cine loop. TECHNIQUE: An intraoperative cholangiogram was performed by the surgeon. Imaging was submitted. COMPARISON: None. FINDINGS: The intrahepatic biliary ducts are unremarkable. The common bile duct is not dilated. No intraluminal filling defect is seen. There is free flow of contrast into the duodenum. RAD/Cholangiogram/ O R,Initial IMPRESSION: Unremarkable intraoperative cholangiogram. Electronically Signed: Ramone Umana, at 13:26 EST , Service support ,
[2019-07-19] MEDS: Bupiv/Epi 0.25% 30 ML Vial (10:15)
--- NOTE | 2019-07-19 10:32 | PCM.OPRPT ---
Problem List (1) Cholecystitis Status: Acute Report of Operation Date of Procedure: 07/19/19 Pre-Operative Diagnosis: Acute cholecystitis Post-Operative Diagnosis: Acute cholecystitis Surgery/Procedure Performed:: Laparoscopic cholecystectomy with cholangiogram Description of Surgical Findings:: Inflamed gallbladder with edema and cholecystitis Specimen's removed: Gallbladder and contents Description of Procedure: After obtaining informed consent patient was brought back to the operating room. General anesthesia was induced. The abdomen was prepped and draped in usual sterile fashion. A small midline incision was made superior to the umbilicus and deepened to the level of fascia. The fascia was elevated and incised. Next the peritoneum was elevated and incised in the same fashion. Finger sweep was performed and the Watson trocar was placed into the abdomen. The balloon was inflated. The abdomen was inflated to 15 mmHg. Next a camera was introduced into the abdomen and the abdomen was inspected. Next under direct visualization three 5-mm ports were placed one subxiphoid and 2 subcostal. Next the gallbladder was elevated and retracted toward the right shoulder. The gallbladder was very inflamed with a lot of edema. The peritoneum was stripped from the gallbladder. The infundibulum was located and retracted laterally. Next the triangle of Calot was dissected and the cystic duct and cystic artery were identified. Cholangiograms were performed. The Alvarez clamp was used to clamp across the infundibulum and the catheter needle was inserted into the gallbladder. Under fluoroscopy contrast was instilled into the gallbladder and the common duct, cystic duct as well as proximal hepatic ducts were identified. There was good filling of the duodenum. There were no filling defects noted in the common bile duct. The clamp was removed as well as the needle and the infundibulum was grasped once more. Three hemolock clips were placed across the cystic duct. The cystic duct was then divided leaving 2 clips on the stump. The cystic artery was clipped and divided in the same fashion. The hook cautery was then used to take the gallbladder off of the gallbladder bed. Hemostasis was obtained. Gallbladder fossa was irrigated and no active bleeding or bile leakage was noted. Next the camera switched to a 5 mm camera and introduced in the subxiphoid port. An Endopouch bag was placed through the umbilical port and the gallbladder was placed into it. The gallbladder was then removed through the umbilical incision. The camera was then reinserted through the umbilical port. The gallbladder fossa was inspected once more and noted to be hemostatic with no leaking bile. The abdomen was suctioned dry. The 5 mm ports were removed under direct visualization. The umbilical port was then removed and the air was removed from the abdomen. Next using an 0 Vicryl suture the umbilical fascia was closed in a [id number] fashion. The umbilical port site was irrigated local anesthetic was administered to all the incisions. All the incisions were closed with interrupted subcuticular 4-0 Monocryl sutures followed by Steri-Strips and dressings. The patient was awoken and taken to PACU in stable condition. - Admit VTE Documentation VTE Mechan Device Prophylaxis: SCD's
[2019-07-19] MEDS: HYDROcodone Bitartrate/Apap 5/325 Tablet PO ×2 (12:31→17:54)
[2019-07-19] MEDS: Loratadine 10 MG Tablet 5 MG PO (12:32)
[2019-07-19] MEDS: Citalopram 20 MG Tablet PO (12:32)
[2019-07-19] MEDS: buPROPion (XL) 300 MG TABLET.XL PO (12:32)
[2019-07-19] MEDS: Topiramate 100 MG Tablet PO (12:33)
[2019-07-19] MEDS: Megestrol 40 MG Tablet PO (12:33)
[2019-07-19] MEDS: Montelukast 10 MG Tablet PO (12:33)
--- NOTE | 2019-07-19 16:15 | DCINST_ITS ---
Discharge Diet: Light diet - advance as tolerated Discharge Activity: Return to Normal Activity, May Not Drive - for 2-3 days or while taking narcotic pain medicataions., May Shower - Tomorrow with bandages in place, - - Do not drive, work heavy equipment or sign legal documents for 24 hours. Lifting Restrictions: 20 lbs for 2 weeks Additional Activity Instructions:: Pain medication may cause nausea. You should typically eat light foods as you take your pain medications. Pain medication may also cause constipation. If this is a problem for you, please discuss with your doctor. Call your doctor if your incision/area has: Continuous Slow Oozing, Sudden In creased Bleeding, Increased Pain/ Swelling, Increased Redness, Foul Smelling Discharge, Fever of 101 or Higher Call your doctor if you observe: Fever of 101 or Higher Suture Line Care: Avoid Pulling/Pushing, Avoid Pinching/Bending Additional Dressing/Incision Instructions:: Leave operative bandaids on for 2 days. When you remove dressing, leave Steri-Strips on until your follow-up appointment, or until the Steri-Strips fall off on their own. Allergies/Adverse Reactions: Allergies codeine Adverse Reaction (Intermediate, Verified 07/18/19 20:59) Vomiting Medications to take at Discharge Multivitamin [Multiple Vitamins] 1 tab PO DAILY 02/25/17 Topiramate [Topamax] 100 mg PO BID 03/06/17 Vitamin B Complex 1 ea PO DAILY 03/06/17 buPROPion XL [Wellbutrin Xl] 300 mg PO DAILY 03/06/17 megestrol 40 mg tablet 40 mg PO DAILY #60 tab 05/12/18 Ascorbic Acid [Vitamin C] 500 mg PO DAILY@0800 06/07/18 Citalopram [Celexa] 20 mg PO DAILY 06/07/18 Famotidine [Pepcid] 20 mg PO DAILY 06/07/18 Levocetirizine Dihydrochloride [Xyzal] 5 mg PO DAILY 06/07/18 Magnesium Oxide [Magnesium] 250 mg PO BID 06/07/18 Montelukast [Singulair] 10 mg PO DAILY 06/07/18 Zorisamide 50 mg PO BID 06/07/18 Hydrocodone Bitart/Apap 5-325 [Varna 5/325] 1 - 2 tablet PO Q4H PRN PRN 4 Days #30 tablet 07/19/19 Varenicline [Chantix] 0.5 mg PO BID 07/19/19 The following prescriptions were given: Hydrocodone Bitart/Apap 5-325 [Varna 5/325] 1 - 2 tablet PO Q4H PRN PRN 4 Days #30 tablet PRN Reason: Pain Score [id number] Transmission Status: Sent to [facility] Primary Care Physician: Anny Marie DO [Primary Care Provider] - Test Results: Test results from this visit will be discussed in further detail at your follow- up appointment, if applicable. Please Follow Up With: Zurdo Disla MD When: Please call to schedule 2 week follow up appointment. [phone]
== END 2019-07-19 16:16 | disposition home or self-care (01) ==
LOC: ED 07-19 00:09 → PCU 07-19 06:21
PROVIDERS: Anesthesiology; Admitting Provider Surgery; Emergency Provider Emergency Medicine; Family Provider Family Medicine; PCP Family Medicine; Visit Provider Surgery
PROC: (CPT 47610; principal; 2019-07-19 08:40)
DX: K80.12 Calculus of gallbladder with acute and chronic cholecystitis without obstruction (principal); F32.9 Major depressive disorder, single episode, unspecified; Z79.899 Other long term (current) drug therapy; F17.210 Nicotine dependence, cigarettes, uncomplicated
CPT/HCPCS: 47563; 36415; 74176; 74300; 76000; 76705; 80048; 80053; 80076; 81001; 81025; 83690; 85025; 88304; 93005; 96361; 96365; 96366; 96367; 96375; 96376; 99218; 99285; 99406; J7030; J7120; A4216; G0378; J2405

== ENCOUNTER → 2019-10-07 06:38 | Outpatient (CLI) | payer BC, SELFPAY ==
[2019-07-21 16:33] VITALS: BMI 31.1
[2019-10-07 08:21] LABS: ALB/GLOB Ratio 0.9 RATIO (0.9-2.4); AST(SGOT) 26 U/L (15-37); Alanine Aminotransfer ALT/SGPT 62 U/L (13-56); Albumin, Serum 3.5 g/dL (3.2-5.0); Alkaline Phosphatase 102 U/L (45-117); Anion Gap 6 (5-15); BUN 15 mg/dL (7-18); BUN/Creat Ratio 15.7 RATIO (10-20); Calcium,Total 8.8 mg/dL (8.5-10.1); Chloride 105 mmol/L (98-107); Creatinine, Serum 0.96 mg/dL (0.55-1.02); EST Glomerular Filtration Rate 66 mL/min (>60); Est Glom Filt Rate - Afr Amer 80 mL/min (>60); Estradiol 15.6 pg/mL; Free T3 3.1 pg/mL (2.18-3.98); Globulin 3.8 g/dL (2.2-4.2); Glucose 91 mg/dL (74-106); Potassium 3.9 mmol/L (3.5-5.1); Protein, Total 7.3 g/dL (6.4-8.2); Sodium Level 140 mmol/L (136-145); T4 Free Direct 0.89 ng/dL (0.76-1.46)
[2019-10-07 08:37] LABS: Progesterone Level 0.19 ng/mL (See Comment)
[2019-10-09 10:34] LABS: DHEA Sulfate 126.7 ug/dL (41.2-243.7)
== END ==
LOC: LAB 06:40
PROVIDERS: PCP Family Medicine; Referring Provider Family Medicine; Visit Provider Family Medicine
DX: R63.5 Abnormal weight gain (principal); R53.83 Other fatigue; Z51.81 Encounter for therapeutic drug level monitoring; F32.9 Major depressive disorder, single episode, unspecified
CPT/HCPCS: 36415; 80053; 82627; 82670; 84144; 84439; 84443; 84481; 82626

== ENCOUNTER → 2019-12-21 16:16 | Outpatient (CLI) | payer BC, SELFPAY ==
[2019-07-21 16:33] VITALS: BMI 31.1
[2019-12-21 17:24] LABS: Free T3 2.8 pg/mL (2.18-3.98); T4 Free Direct 0.87 ng/dL (0.76-1.46); Thyroid Stim Hormone (TSH) 1.17 uIU/mL (0.358-3.74)
== END ==
PROVIDERS: PCP Family Medicine; Referring Provider Family Medicine; Visit Provider Family Medicine
DX: E03.9 Hypothyroidism, unspecified (principal)
CPT/HCPCS: 36415; 84439; 84443; 84481

== ENCOUNTER 2022-09-25 18:58 | Emergency (ER) | payer BC, SELFPAY ==
[2022-09-25 18:59] VITALS: BP 143/82; PULSE 83; RESP 15; TEMP 36.4; O2SAT 97; BMI 36.6
[2022-09-25] MEDS: 0.9% Normal Saline 1,000 ML 999 ML IV (19:22)
[2022-09-25] MEDS: Metoclopramide 10 MG/2 ML Vial IV (19:23)
[2022-09-25] MEDS: DiphenhydrAMINE 50 MG/ML Syringe 25 MG IV (19:23)
--- NOTE | 2022-09-25 19:36 | EDS_ITS ---
HPI History of Present Illness Chief Complaint: Headache Informant: patient Onset/Context/Timing Onset: Days (3) Context: Gradual Timing: Continuous Quality -Headache: Positive for Similar Prior Headaches Location: Bifrontal Current Severity: Moderate Maximum Severity: Moderate Worsened by: Light, sound Relieved by: Nothing Associated Symptoms/Injury Associated Symptoms: Positive for Nausea and Photophobia; Negative for Fever, Vomiting, Sore Throat, Sinus Pressure, Numbness, Tingling, Preceding Aura or Visual Changes Injury - BROWN: Negative for Direct Trauma Narrative Narrative: Patient has history of migraines, she thinks this 1 may have started with weather/environment changes. It started not unusually, but has been persistent despite taking her rizatriptan, and getting an injection of Toradol at urgent care prior to coming here. She denies any unusual symptoms. [facility] Medical History (Updated 09/25/22 @ 19:[address] Taran Briggs MD) delivery due to maternal disorder Migraines Home Medications multivitamin 1 tab PO DAILY supplement 02/25/17 [History Last Taken Unknown] bupropion HCl 150 mg 24 hr tablet, extended release 300 mg PO DAILY antidepressant 03/06/17 [History Last Taken 06/09/18 09:30 300 MG] topiramate 200 mg tablet 100 mg PO BID headaches 03/06/17 [History Last Taken 06/09/18 09:30 100 MG] vitamin B complex 1 ea PO DAILY supplement 03/06/17 [History Last Taken Unknown] megestrol 40 mg tablet 40 mg PO DAILY #60 tabs 05/12/18 [Rx Last Taken Unknown] Zorisamide 50 mg PO BID headaches 06/07/18 [History Last Taken Unknown] ascorbic acid (vitamin C) 500 mg tablet 500 mg PO DAILY@0800 low vit c 06/07/18 [History Last Taken Unknown] citalopram 20 mg tablet 20 mg PO DAILY depression 06/07/18 [History Last Taken Unknown] famotidine 20 mg tablet 20 mg PO DAILY reflux 06/07/18 [History Last Taken 06/09/18 09:30 20 MG] levocetirizine 5 mg tablet 5 mg PO DAILY allergies 06/07/18 [History Last Taken Unknown] magnesium oxide 250 mg PO BID mag supplement 06/07/18 [History Last Taken Unknown] montelukast 10 mg tablet 10 mg PO DAILY allergies 06/07/18 [History Last Taken Unknown] varenicline 0.5 mg tablet 0.5 mg PO BID 07/19/19 [History Last Taken 07/18/19 17:00] metoclopramide HCl 10 mg tablet 10 mg PO Q12H PRN PRN nausea or migraine #8 tabs 09/25/22 [Rx Last Taken Unknown] Allergy/AdvReac Type Severity Reaction Status Date / Time codeine AdvReac Intermediate Vomiting Verified 09/25/22 18:59 Family History Grandfather Cancer Brother Diabetes Father Hypertension Grandmother Hypertension Surgical History (Updated 08/03/19 @ 09:13 by Camryn Freed) H/O dilation and curettage History of cholecystectomy (~07/2019) Social History Smoking Status: Current every day smoker tobacco type: cigarettes alcohol intake: never substance use type: does not use seatbelt use: always do you feel safe at home: Yes ROS ROS ED Constitutional Constitutional ED: Denies chills or fever(s) Eyes Eyes: Denies blurry vision or diplopia ENT ENT ED: Denies ear pain or sore throat Cardiovascular Cardiovascular: Denies chest pain or palpitations Respiratory/Chest Respiratory/Chest: Denies cough or dyspnea Gastrointestinal Gastrointestinal: Reports nausea; Denies abdominal pain, diarrhea or vomiting Genitourinary Genitourinary ED: Denies dysuria or urinary frequency Musculoskeletal Musculoskeletal: Denies back pain or myalgias Integumentary Denies abscess or rash Neurologic Neurologic: Reports headache(s); Denies paresthesias or weakness EXAM Physical Exam Const Vital Signs: 09/25/22 18:59 Temperature 97.5 F L Temperature Source Temporal Pulse Rate 83 Respiratory Rate 15 Blood Pressure 143/82 H Blood Pressure Mean 102 Pulse Ox 97 Oxygen Delivery Method Room Air HEENT Reports normocephalic and moist mucous membranes atraumatic Eyes PERRL, EOMs intact bilaterally and conjunctivae normal Eyes Narrative: photophobia Neck no lymphadenopathy, supple and no meningeal signs Resp normal respiratory effort and clear to auscultation bilaterally GI non-tender and non-distended Palpation: soft Extremity normal to inspection and full ROM Neuro oriented x3 and CN's II-XII intact bilaterally Sensorium / Orientation: awake and alert Speech: speech normal Gait (Neuro): normal gait Motor Exam: strength 5/5 throughout Psych mental status grossly normal Skin Lesions: no lesions Rashes: no rashes MDM MDM MDM Narrative Medical decision making narrative: Patient was given IV fluids, Reglan, Benadryl. On reevaluation her headache is gone she feels much better. Reassured and discharged with her , will give her prescription for Reglan to use as needed since there is continued low pressure weather changes in the area. Discharge Plan Triage Chief Complaint: Headache ED Provider: Taran Briggs Dx/Rx/DC Orders Clinical Impression: Headache, migraine Instructions: ED, Migraine (Classical) Prescriptions: New metoclopramide HCl [metoclopramide HCl] 10 mg tablet 10 mg PO Q12H PRN PRN (Reason: nausea or migraine) Qty: 8 0RF No Action multivitamin 1 EACH tablet 1 tab PO DAILY topiramate 200 MG tablet 100 mg PO BID vitamin B complex 1 EACH capsule 1 ea PO DAILY bupropion HCl 150 MG tablet extended release 24 hr 300 mg PO DAILY citalopram 20 MG tablet 20 mg PO DAILY famotidine 20 MG tablet 20 mg PO DAILY ascorbic acid (vitamin C) 500 MG tablet 500 mg PO DAILY@0800 montelukast 10 MG tablet 10 mg PO DAILY levocetirizine 5 MG tablet 5 mg PO DAILY magnesium oxide 400 MG tablet 250 mg PO BID Zorisamide 50 mg PO BID varenicline 0.5 MG tablet 0.5 mg PO BID megestrol 40 mg tablet 40 mg PO DAILY Qty: 60 1RF Primary Care Provider: Anny Marie Referrals: Anny Marie DO [Primary Care Provider] - As Needed Disposition Disposition: Home, Self Care
== END 2022-09-25 21:14 | disposition home or self-care (01) ==
PROVIDERS: Emergency Provider Emergency Medicine; PCP Family Medicine; Visit Provider Emergency Medicine
DX: G43.909 Migraine, unspecified, not intractable, without status migrainosus (principal); H53.149 Visual discomfort, unspecified; R11.0 Nausea
CPT/HCPCS: 96361; 96374; 96375; 99283; J7030; A4216

== ENCOUNTER → 2022-12-29 | Outpatient (CLI) | payer BC, SELFPAY ==
--- NOTE | 2022-12-29 16:54 | NEURO_ITS ---
NCS and/or EMG Patient Report Ordering Doctor: Anny Marie DATE OF SERVICE: 12/29/22 Indication: Approximately 6 weeks of numbness in the first three fingers of the left hand. Symptoms occasionally radiate proximally. Findings: Nerve conduction studies were performed in the left upper extremity. The left median motor study recording the abductor pollicis brevis showed a normal amplitude, normal distal latency and normal conduction velocity. The left ulnar motor study recording the abductor digiti minimi showed a normal amplitude, normal distal latency and normal conduction velocity. No conduction block or focal slowing was present across the elbow. The left median sensory response recording digit two showed a normal amplitude, latency and conduction velocity. The left ulnar sensory response recording digit five showed a normal amplitude, latency and conduction velocity. The left radial sensory response recording over the extensor snuff box showed a normal amplitude, latency and conduction velocity. Left median-ulnar lumbrical / interosseous motor latencies showed a normal median latency compared to the ulnar. Needle EMG of the left upper extremity muscles was performed. No denervation was seen in any muscle. All motor unit morphology, activation and recruitment patterns were normal. Impression: This is a normal study. There is no electrophysiologic evidence of median neuropathy across the wrist on the left side. In addition, there is no electrophysiologic evidence of cervical radiculopathy, brachial plexopathy or other entrapment neuropathy in the left upper extremity. Please note: electrodiagnostic testing is appropriately 95% sensitive in detecting median neuropathy across the wrist when internal comparison studies are done. However, 5% of patients will have a false negative study. Presumably, in these patients, intermittent compression results in pain and paresthesias f rom ischemia, but without any fixed demyelination or axonal loss that can be demonstrated on electrodiagnostic studies. Thus, clinical correlation is required in the interpretation of this negative study. Grayson Mcfarlane D.O. Multi Select Codes Neurology Neurology Interp Codes: 12268-20 Musc test done w/n test comp (interp) and 91470-58 Nr cndj test 7-8 studies (interp)
== END | disposition home or self-care (01) ==
LOC: PSN 15:45
PROVIDERS: PCP Family Medicine; Referring Provider Family Medicine; Visit Provider Family Medicine
DX: M79.609 Pain in unspecified limb (principal); R20.2 Paresthesia of skin
CPT/HCPCS: 95886; 95910

== ENCOUNTER → 2023-04-09 | Outpatient (CLI) | payer BC, SELFPAY | END | disposition home or self-care (01) | LOC: SL 13:33 | PROVIDERS: PCP Family Medicine; Referring Provider Family Medicine; Visit Provider Family Medicine | DX: G47.33 Obstructive sleep apnea (adult) (pediatric) (principal); G47.10 Hypersomnia, unspecified | CPT/HCPCS: 95806 ==

== ENCOUNTER → 2023-04-28 | Outpatient (CLI) | payer BC, SELFPAY | END | disposition home or self-care (01) | LOC: SL 07:34 | PROVIDERS: PCP Family Medicine; Visit Provider Family Medicine | DX: Z00.00 Encounter for general adult medical examination without abnormal findings (principal) ==

== ENCOUNTER 2023-12-21 16:27 | Emergency (ER) | payer BC, SELFPAY ==
[2023-12-21 16:27] VITALS: BP 168/123; PULSE 91; RESP 22; O2SAT 97
[2023-12-21 16:28] VITALS: BP 168/123; PULSE 91; RESP 22; TEMP 35.9; O2SAT 97
--- NOTE | 2023-12-21 16:50 | EX.ED.UPPERE ---
HPI History of Present Illness HPI Narrative: 53-year-old female [id number] was getting out of her SUV and accidentally slammed her right hand in the car door. Complaining primarily of pain to the right index and long finger. There is a laceration of the distal ulnar side of the right index finger. Tetanus is not up-to-date. She has no other injuries. This occurred about an hour ago. No prior history of surgery or fracture to the right hand. Chief Complaint: Upper Extremity Injury Informant: patient Occured/Mechanism Mechanism/Context: Yes injury and Yes blunt trauma Onset/Context/Timing Context: Sudden Onset Timing: Continuous Quality of Pain: Sharp Current Severity: Moderate Maximum Severity: Moderate Associated Symptoms Associated Symptoms: Negative for Parasthesia, Weakness or Loss of Funtion Narrative Narrative: [id number] 53-year-old female show to right hand car door about an hour ago. Complaining of pain to the index and long finger. And a laceration to the index finger distally. No other injuries. Tetanus Immunization: Unknown Prior similar symptoms: No Recent Illness/Hospitalization: No [facility] Medical History delivery due to maternal disorder Migraines Home Medications multivitamin 1 tab PO DAILY supplement 02/25/17 [History Last Taken Unknown] bupropion HCl 150 mg 24 hr tablet, extended release 300 mg PO DAILY antidepressant 03/06/17 [History Last Taken 06/09/18 09:30 300 MG] topiramate 200 mg tablet 100 mg PO BID headaches 03/06/17 [History Last Taken 06/09/18 09:30 100 MG] vitamin B complex 1 ea PO DAILY supplement 03/06/17 [History Last Taken Unknown] megestrol 40 mg tablet 40 mg PO DAILY #60 tabs 05/12/18 [Rx Last Taken Unknown] Zorisamide 50 mg PO BID headaches 06/07/18 [History Last Taken Unknown] ascorbic acid (vitamin C) 500 mg tablet 500 mg PO DAILY@0800 low vit c 06/07/18 [History Last Taken Unknown] citalopram 20 mg tablet 20 mg PO DAILY depression 06/07/18 [History Last Taken Unknown] famotidine 20 mg tablet 20 mg PO DAILY reflux 06/07/18 [History Last Taken 06/09/18 09:30 20 MG] levocetirizine 5 mg tablet 5 mg PO DAILY allergies 06/07/18 [History Last Taken Unknown] magnesium oxide 250 mg PO BID mag supplement 06/07/18 [History Last Taken Unknown] montelukast 10 mg tablet 10 mg PO DAILY allergies 06/07/18 [History Last Taken Unknown] varenicline 0.5 mg tablet 0.5 mg PO BID 07/19/19 [History Last Taken 07/18/19 17:00] metoclopramide HCl 10 mg tablet 10 mg PO Q12H PRN PRN nausea or migraine #8 tabs 09/25/22 [Rx Last Taken Unknown] Allergy/AdvReac Type Severity Reaction Status Date / Time codeine AdvReac Intermediate Vomiting Verified 09/25/22 18:59 Family History Grandfather Cancer Brother Diabetes Father Hypertension Grandmother Hypertension Surgical History H/O dilation and curettage History of cholecystectomy (~07/2019) Social History Smoking Status: Current every day smoker tobacco type: cigarettes alcohol intake: never substance use type: does not use seatbelt use: always do you feel safe at home: Yes ROS ROS ED ROS Narrative Denies recent illness. Review of Systems ROS Unobtainable: Denies due to encephalopathy Constitutional Constitutional ED: Denies chills or fever(s) Eyes Eyes: Denies blurry vision ENT ENT ED: Denies ear pain Cardiovascular Cardiovascular: Denies chest pain Respiratory/Chest Respiratory/Chest: Denies cough or dyspnea Gastrointestinal Gastrointestinal: Denies abdominal pain Genitourinary Genitourinary ED: Denies dysuria or hematuria Musculoskeletal Musculoskeletal: Denies back pain Integumentary Denies abscess or Abrasions Neurologic Neurologic: Denies headache(s) Psychiatric Psychiatric: Denies anxiety or depression Endocrine Endocrinology: Denies cold intolerance Hematologic/Lymphatic Hematologic/Lymphatic: Denies easy bleeding, easy bruising or lymphadenopathy Allergic/Immunologic Allergic/Immunologic ED: Denies mouth swelling, tongue swelling or urticaria EXAM Physical Exam Narrative Exam Narrative: Well-appearing 53-year-old female. Vital signs stable afebrile. Her blood pressure is elevated at 168/123 but she is having a lot of pain in her hand that is secondary to that. To be repeated. H EENT exam unremarkable. Neck nontender. Lungs clear to auscultation bilaterally. Heart regular rhythm no murmur. Rate about 90. Chest wall and ribs nontender. Abdomen soft nontender. Both lower extremities left upper extremity nontender no deformity normal range of motion. Right hand tenderness over the palm index and long finger. Laceration on the ulnar side of the distal end of the index finger. Small subungual hematoma on the ring finger. She does have a ring on which we will have to remove. She has limited flexion extension of the right hand due to pain and swelling. No gross bony deformity. Right wrist and forearm are nontender. She has normal cap refill and touch sensation all digits of the right hand. Const Vital Signs: 12/21/23 16:28 Temperature 96.7 F L Temperature Source Temporal Pulse Rate 91 Respiratory Rate 22 H Blood Pressure 168/123 H Blood Pressure Mean 138 Pulse Ox 97 Oxygen Delivery Method Room Air Positive well nourished and well developed; Negative for cachectic, contractures or unkempt General Appearance ED: well developed; Negative for unkempt, cachectic, contractures, cyanotic, diaphoretic or NAD Nutritional Appearance: Negative for cachectic HEENT Reports moist mucous membranes normocephalic and atraumatic; Negative for trauma or tenderness Eyes EOMs intact bilaterally Neck full ROM and supple General: Negative for tenderness Chest Wall inspection of chest normal and palpation of chest normal Chest: Negative for other Resp normal respiratory effort and clear to auscultation bilaterally Effort and Inspection: Negative for pain with movement Auscultation: Negative for rales, rhonchi or wheezes Cardio regular rate, regular rhythm, S1 normal heart sound, S2 normal heart sound and no murmurs Rate: Negative for bradycardia or tachycardic Rhythm: Negative for abnormal rhythm GI non-tender, non-distended and no masses Inspection: Negative for abdominal distention Auscultation: normoactive bowel sounds Palpation: soft; Negative for tender or guarding Back/Spine no CVA tenderness General Back: Negative for CVA tenderness Cervical Spine: Negative for cervical spine tenderness Thoracic Spine / Upper Back: Negative for thoracic spinal tenderness Lumbar Spine / Lower Back: Negative for lumbar spinal tenderness Extremity Negative for normal to inspection or full ROM Extremity Narrative: Right hand tenderness and swelling. Tender over the palm and right index and long. Small laceration ulnar side distal third of the index finger. Limited range of motion due to pain and swelling. Neurovascular intact. Normal touch sensation and cap refill. Small subungual hematoma about 20% of the right ring finger nail. General Extremety ED: Yes edema General Extremity: edema Neuro oriented x3, CN's II-XII intact bilaterally, moves all extremities, no focal motor deficits and no sensory deficits noted Sensorium / Orientation: oriented to person, oriented to place and oriented to time; Negative for orientation impaired, lethargic or stuporous Motor Exam: strength 5/5 throughout Psych mental status grossly normal Appearance: Negative for unkempt Attitude: No agitated Mood & Affect: Negative for depressed, anxious or tearful Skin General Skin Exam: Negative for petechiae Lesions: no lesions Rashes: no rashes Trauma: laceration MDM MDM MDM Narrative Medical decision making narrative: 53-year-old female [id number] unknown tetanus which will need to be updated she had her right hand in a car door. X-ray being obtained. We need to remove the ring from the right ring finger and clean her hand and see if there is anything that needs to be repaired. She is a laceration on the distal end of the right index finger. Discharge Plan Triage Chief Complaint: Upper Extremity Injury ED Provider: Surjit Bright Dx/Rx/DC Orders Prescriptions: No Action multivitamin 1 EACH tablet 1 tab PO DAILY topiramate 200 MG tablet 100 mg PO BID vitamin B complex 1 EACH capsule 1 ea PO DAILY bupropion HCl 150 MG tablet extended release 24 hr 300 mg PO DAILY citalopram 20 MG tablet 20 mg PO DAILY famotidine 20 MG tablet 20 mg PO DAILY ascorbic acid (vitamin C) 500 MG tablet 500 mg PO DAILY@0800 montelukast 10 MG tablet 10 mg PO DAILY levocetirizine 5 MG tablet 5 mg PO DAILY magnesium oxide 400 MG tablet 250 mg PO BID Zorisamide 50 mg PO BID varenicline 0.5 MG tablet 0.5 mg PO BID metoclopramide HCl [metoclopramide HCl] 10 mg tablet 10 mg PO Q12H PRN PRN (Reason: nausea or migraine) Qty: 8 0RF megestrol 40 mg tablet 40 mg PO DAILY Qty: 60 1RF Primary Care Provider: Malys,Anny Referrals: Anny Marie DO [Primary Care Provider] -
--- NOTE | 2023-12-21 17:00 | RAD_ITS ---
STUDY: X-RAY - RIGHT HAND REASON FOR EXAM: Female, 53 years old. right hand vs car door TECHNIQUE: 3 view(s) of the hand. COMPARISON: None. FINDINGS: Normal radiocarpal articulation. Normal distal radioulnar joint. Normal visualized carpal bones. Normal carpal articulations Normal carpometacarpal articulation of the thumb. Normal second through fifth carpometacarpal joints. Normal metacarpi. Normal metacarpophalangeal joint of the thumb. Normal interphalangeal joint of the thumb. Normal proximal and distal phalanges of the thumb. Normal metacarpophalangeal joints of the second through fifth fingers. Normal proximal and distal interphalangeal joints of the second through fifth fingers. Normal phalanges of the second through fifth fingers. The soft tissue structures are unremarkable. RAD/Hand Min 3 Views IMPRESSION: Normal x-ray examination of the hand. Electronically Signed: Matias Iglesias MD at 17:33 EDT ,
[2023-12-21] MEDS: Oxycodone/Apap 5/325 Tablet PO (17:09)
--- NOTE | 2023-12-21 17:24 | EDS_ITS ---
HPI History of Present Illness HPI Narrative: 53-year-old female [id number] excellently shut her right hand in her SUV door when she was getting out about an hour ago. No prior history of surgery. Unknown of her last tetanus. Will need to be updated. Chief Complaint: Upper Extremity Injury Occured/Mechanism Mechanism/Context: Yes injury and Yes blunt trauma Onset/Context/Timing Onset: Today and Hours Timing: Continuous Quality of Pain: Sharp Current Severity: Moderate Maximum Severity: Moderate Narrative Narrative: 33-year-old female pfeby-abqp-wyxdaela she had a right hand in the door about an hour ago. Tetanus Immunization: Unknown Prior similar symptoms: No Recent Illness/Hospitalization: No PFSH PFS Medical History delivery due to maternal disorder Migraines Home Medications multivitamin 1 tab PO DAILY supplement 02/25/17 [History Last Taken Unknown] bupropion HCl 150 mg 24 hr tablet, extended release 300 mg PO DAILY antidepressant 03/06/17 [History Last Taken 06/09/18 09:30 300 MG] topiramate 200 mg tablet 100 mg PO BID headaches 03/06/17 [History Last Taken 06/09/18 09:30 100 MG] vitamin B complex 1 ea PO DAILY supplement 03/06/17 [History Last Taken Unknown] megestrol 40 mg tablet 40 mg PO DAILY #60 tabs 05/12/18 [Rx Last Taken Unknown] Zorisamide 50 mg PO BID headaches 06/07/18 [History Last Taken Unknown] ascorbic acid (vitamin C) 500 mg tablet 500 mg PO DAILY@0800 low vit c 06/07/18 [History Last Taken Unknown] citalopram 20 mg tablet 20 mg PO DAILY depression 06/07/18 [History Last Taken Unknown] famotidine 20 mg tablet 20 mg PO DAILY reflux 06/07/18 [History Last Taken 06/09/18 09:30 20 MG] levocetirizine 5 mg tablet 5 mg PO DAILY allergies 06/07/18 [History Last Taken Unknown] magnesium oxide 250 mg PO BID mag supplement 06/07/18 [History Last Taken Unknown] montelukast 10 mg tablet 10 mg PO DAILY allergies 06/07/18 [History Last Taken Unknown] varenicline 0.5 mg tablet 0.5 mg PO BID 07/19/19 [History Last Taken 07/18/19 1 7:00] metoclopramide HCl 10 mg tablet 10 mg PO Q12H PRN PRN nausea or migraine #8 tabs 09/25/22 [Rx Last Taken Unknown] Allergy/AdvReac Type Severity Reaction Status Date / Time codeine AdvReac Intermediate Vomiting Verified 09/25/22 18:59 Family History Grandfather Cancer Brother Diabetes Father Hypertension Grandmother Hypertension Surgical History H/O dilation and curettage History of cholecystectomy (~07/2019) Social History Smoking Status: Current every day smoker tobacco type: cigarettes alcohol intake: never substance use type: does not use seatbelt use: always do you feel safe at home: Yes ROS ROS ED ROS Narrative Denies recent illness. Review of Systems ROS Unobtainable: Denies due to encephalopathy Constitutional Constitutional ED: Denies chills Eyes Eyes: Denies blurry vision ENT ENT ED: Denies ear pain Cardiovascular Cardiovascular: Denies chest pain Respiratory/Chest Respiratory/Chest: Denies cough or dyspnea Gastrointestinal Gastrointestinal: Denies abdominal pain Genitourinary Genitourinary ED: Denies dysuria or hematuria Musculoskeletal Musculoskeletal: Denies back pain, myalgias or neck pain Integumentary Denies abscess, Abrasions or rash Neurologic Neurologic: Denies headache(s) or paresthesias Psychiatric Psychiatric: Denies anxiety or depression Endocrine Endocrinology: Denies cold intolerance, heat intolerance or polydipsia Hematologic/Lymphatic Hematologic/Lymphatic: Denies easy bleeding, easy bruising or lymphadenopathy Allergic/Immunologic Allergic/Immunologic ED: Denies mouth swelling, tongue swelling or urticaria EXAM Physical Exam Narrative Exam Narrative: 53-year-old female vital signs stable afebrile. Blood pressure is elevated 160/123 due to her pain of her right hand. That will be rechecked after pain medication. HEENT exam normal. Lungs clear. Heart regular rhythm rate about 90 no murmur. Chest wall and ribs nontender. Abdomen soft nontender. Back nontender. Moving all 4 extremities. Left upper and both lower extremities are nontender normal range of motion. Neurovascular intact. Right hand right hand swelling. Small laceration right index finger on the distal ulnar side. Dried blood. Limited flexion extension due to pain. No bony deformity. No signs of infection. Normal radial pulse. Normal cap refill. Small subungual hematoma on the right ring finger nail. There is a ring in place which will be removed. Neurologically she is awake and alert. Const Vital Signs: 12/21/23 16:28 12/21/23 16:27 Temperature 96.7 F L Temperature Source Temporal Pulse Rate 91 91 Respiratory Rate 22 H 22 H Blood Pressure 168/123 H 168/123 H Blood Pressure Mean 138 138 Pulse Ox 97 97 Oxygen Delivery Method Room Air Room Air Positive well nourished and well developed; Negative for cachectic, contractures or unkempt General Appearance ED: well developed; Negative for unkempt, cachectic, contractures, cyanotic, diaphoretic or NAD Nutritional Appearance: Negative for cachectic HEENT Reports moist mucous membranes normocephalic and atraumatic; Negative for trauma or tenderness Eyes PERRL and EOMs intact bilaterally General Eye ED: Negative for other Neck full ROM and supple General: Negative for tenderness Lymph Lymphatic: Negative for other Chest Wall inspection of chest normal and palpation of chest normal Chest: other Resp normal respiratory effort and clear to auscultation bilaterally Effort and Inspection: Negative for pain with movement Auscultation: Negative for rales, rhonchi, wheezes or diminished lung sounds Cardio regular rate, regular rhythm, S1 normal heart sound, S2 normal heart sound and no murmurs Rate: Negative for bradycardia or tachycardic Rhythm: Negative for abnormal rhythm GI non-tender, non-distended and no masses Inspection: Negative for abdominal distention Auscultation: normoactive bowel sounds Palpation: soft; Negative for tender, guarding or rebound tenderness present Bladder / Kidney Exam: No other Back/Spine no CVA tenderness General Back: Negative for CVA tenderness Cervical Spine: Negative for cervical spine tenderness Thoracic Spine / Upper Back: Negative for thoracic spinal tenderness Lumbar Spine / Lower Back: Negative for lumbar spinal tenderness Extremity normal to inspection and full ROM Extremity Narrative: Except right hand. Right hand swelling. Superficial laceration distal right index finger ulnar side. Limited flexion extension due to pain and swelling. Normal touch sensation. Normal cap refill. Small subungual hematoma less than 20% right ring finger proximal nail. General Extremety ED: Yes edema General Extremity: edema Neuro oriented x3, CN's II-XII intact bilaterally, moves all extremities, no focal motor deficits and no sensory deficits noted Sensorium / Orientation: alert, oriented to person, oriented to place and oriented to time; Negative for orientation impaired, lethargic or stuporous Motor Exam: strength 5/5 throughout Psych mental status grossly normal Appearance: Negative for unkempt Attitude: No agitated Mood & Affect: Negative for depressed, anxious or tearful Skin General Skin Exam: Negative for petechiae Lesions: no lesions Rashes: no rashes Trauma: laceration MDM MDM MDM Narrative Medical decision making narrative: 53-year-old right hand injury after shutting in a door. I cleaned the hand off well there is knots in the suture. Distally on the right index finger on the ulnar side there is a small laceration which will be cleaned and a Band-Aid will be placed. Her tetanus was updated. X-ray was obtained was negative other than soft tissue swelling. She will be discharged home. She was given 2 Percocet here for pain. Repeat exam patient doing much better with the Percocet. We washed her hand there is nothing that so we will put a Band-Aid on the right index finger superficial laceration. There is no fractures. Uses ice and elevate. Motrin Tylenol for pain. Discharged home. Radiography Diagnostic Testing: Right hand x-ray, 3 views, interpreted by myself shows soft tissue swelling. No fracture or dislocation. No foreign body. I went over the films with the patient. Discharge Plan Triage Chief Complaint: Upper Extremity Injury ED Provider: Surjit Bright Dx/Rx/DC Orders Clinical Impression: Hand laceration, Contusion of hand, right Instructions: ED Crush Injury, Hand Prescriptions: No Action multivitamin 1 EACH tablet 1 tab PO DAILY topiramate 200 MG tablet 100 mg PO BID vitamin B complex 1 EACH capsule 1 ea PO DAILY bupropion HCl 150 MG tablet extended release 24 hr 300 mg PO DAILY citalopram 20 MG tablet 20 mg PO DAILY famotidine 20 MG tablet 20 mg PO DAILY ascorbic acid (vitamin C) 500 MG tablet 500 mg PO DAILY@0800 montelukast 10 MG tablet 10 mg PO DAILY levocetirizine 5 MG tablet 5 mg PO DAILY magnesium oxide 400 MG tablet 250 mg PO BID Zorisamide 50 mg PO BID varenicline 0.5 MG tablet 0.5 mg PO BID metoclopramide HCl [metoclopramide HCl] 10 mg tablet 10 mg PO Q12H PRN PRN (Reason: nausea or migraine) Qty: 8 0RF megestrol 40 mg tablet 40 mg PO DAILY Qty: 60 1RF Primary Care Provider: Anny Marie Referrals: Anny Marie, [Primary Care Provider] - 1 Week if not improving Activity Restrictions/Additional Instructions: No broken bone on the x-ray. Ice and elevate to decrease pain and swelling. 30 minutes of time 5 times a day. Motrin for pain and swelling Tylenol for pain. Keep the wound clean and apply antibiotic ointment daily. Watch for any signs of infection such as pus, redness or worsening of the swelling is seen you may need this reevaluated. This should progressively improve if it is not getting better in 1 to 2 weeks and needs to be reevaluated. No jewelry or rings on that hand for 2 weeks. One-handed duty at work. Off work tomorrow. Disposition Disposition: Home, Self Care
[2023-12-21] MEDS: Diphth,Pertuss(Acell),Tet Vac 0.5 ML Vial IM (17:25)
[2023-12-21 17:39] VITALS: BMI 39.3
[2023-12-21 17:40] VITALS: BP 161/98; PULSE 62; RESP 18; TEMP 36.7; O2SAT 96
== END 2023-12-21 17:41 | disposition home or self-care (01) ==
PROVIDERS: Emergency Provider Emergency Medicine; PCP Family Medicine; Visit Provider Emergency Medicine
DX: S61.210A Laceration without foreign body of right index finger without damage to nail, initial encounter (principal); S60.141A Contusion of right ring finger with damage to nail, initial encounter; Z23 Encounter for immunization; W23.2XXA Caught, crushed, jammed or pinched between a moving and stationary object, initial encounter; Y92.818 Other transport vehicle as the place of occurrence of the external cause; Z79.899 Other long term (current) drug therapy; F17.210 Nicotine dependence, cigarettes, uncomplicated
CPT/HCPCS: 73130; 90471; 99283

== ENCOUNTER → 2024-10-21 | Outpatient (CLI) | payer BC, SELFPAY ==
[2024-10-21 12:30] LABS: Absolute Lymphocyte Count 2.09 X10^3/uL (0.83-4.51); Basophil# 0.07 X10^3/uL; Basophil% 0.8 % (0-1); Eosinophil# 0.31 X10^3/uL; Eosinophils% 3.4 % (0-5); Hemoglobin 13.7 g/dL (12.0-15.0); Lymphocyte # 2.09 X10^3/ul (0.83-4.51); Mean Corp Hgb Conc 31.9 g/dL (32-36); Mean Corpuscular Hgb 29.5 pg (27.0-32.0); Mean Corpuscular Volume 92.7 fL (81-99); Mean Platelet Vol. 11.1 fl (6.2-12.0); Monocyte# 0.57 X10^3/uL; Monocyte% 6.3 % (0-10); NRBC Flagged by Analyzer 0 % (0-5); Neutrophil # 6.01 X10^3/uL (2.7-7.7); Neutrophil % 66.1 % (47-70); Platelet Count 334 K/mm3 (150-450); RBC Distribution Width CV 13.1 % (11.6-14.6); RBC Distribution Width SD 44.5 fl (35.1-43.9); Red Blood Count 4.64 M/mm3 (4.2-5.4); White Blood Count 9.1 K/mm3 (4.4-11.0)
[2024-10-21 13:20] LABS: AST(SGOT) 26 U/L (15-37); Alanine Aminotransfer ALT/SGPT 54 U/L (13-56); Albumin, Serum 3.7 g/dL (3.2-5.0); Alkaline Phosphatase 94 U/L (45-117); Anion Gap 7 (5-15); BUN 12 mg/dL (7-18); BUN/Creat Ratio 13.4 RATIO (10-20); Chloride 104 mmol/L (98-107); EST Glomerular Filtration Rate 70 mL/min (>60); Est Glom Filt Rate - Afr Amer 84 mL/min (>60); Free T3 3.1 pg/mL (2.18-3.98); Globulin 3.7 g/dL (2.2-4.2); Glucose 107 mg/dL (74-106); Potassium 4.3 mmol/L (3.5-5.1); Protein, Total 7.4 g/dL (6.4-8.2); Sodium Level 138 mmol/L (136-145); T4 Free Direct 0.86 ng/dL (0.76-1.46)
== END | disposition home or self-care (01) ==
LOC: BFHLAB 09:19
PROVIDERS: PCP Family Medicine; Visit Provider Family Medicine
DX: E03.9 Hypothyroidism, unspecified (principal); Z51.81 Encounter for therapeutic drug level monitoring
CPT/HCPCS: 36415; 80053; 84439; 84443; 84481; 85025

== ENCOUNTER → 2025-06-01 | Outpatient (CLI) | payer BC, SELFPAY ==
[2025-06-01 18:28] LABS: Vitamin D,25 Hydroxy 50.5 ng/mL (30-100)
[2025-06-08 10:08] LABS: Cotinine Screen Blood 138.2 ng/mL (.)
== END | disposition home or self-care (01) ==
LOC: BFHLAB 15:24
PROVIDERS: PCP Family Medicine; Visit Provider Family Medicine
DX: Z01.818 Encounter for other preprocedural examination (principal); Z51.81 Encounter for therapeutic drug level monitoring; E55.9 Vitamin D deficiency, unspecified; R73.01 Impaired fasting glucose
CPT/HCPCS: 36415; 80323; 82306; 83036; G0480

== ENCOUNTER 2025-06-14 06:46 | Outpatient (CLI) | payer BC, SELFPAY ==
--- NOTE | 2025-06-14 08:42 | CT_ITS ---
PROCEDURE: SPINE CERVICAL WITHOUT CONTRAS 06/14/2025 REASON FOR EXAM: RADICULOPATHY ARM NUMBESS H/O C5/6 FUSION TECHNIQUE: Procedure Code: CTS Modality: CT Procedure: SPINE CERVICAL WITHOUT CONTRAS Coronal and Sagittal reconstruction series were provided. One or more dose reduction techniques were used (e.g., Automated exposure control, adjustment of the mA and/or kV according to patient size, use of iterative reconstruction technique. RADIATION DOSE SUMMARY: CTDlvol: 28.3 mGy DLP: 585. mGycm COMPARISON: None. FINDINGS: Cervical spine: Odontoid normal. C1-2 interface negative. Anterior plate screws are interbody fusion C5-C6. Disc space narrowing C4-C5. Disc space narrowing and osteophyte formation C6-C7. Moderate facet joint hypertrophy of the lower cervical spine. Moderate bilateral neural foraminal narrowing C6-C7 with suspected mild central spinal canal narrowing. Vertebral body heights and alignment otherwise negative. Negative for fractures or dislocations. Cervicothoracic junction negative. Adjacent structures otherwise negative. Remainder of exam negative. CT/Spine Cervical without Contras IMPRESSION: Surgical changes of the lower cervical spine. Degenerative changes of the mid and lower cervical spine. Negative for abnorma lity of the cervical spine. Reading Location: [id number]
== END 2025-06-14 23:59 | disposition home or self-care (01) ==
PROVIDERS: PCP Family Medicine; Referring Provider Nurse Practitioner Family; Visit Provider Nurse Practitioner Family
DX: R20.0 Anesthesia of skin (principal); M54.10 Radiculopathy, site unspecified
CPT/HCPCS: 72125; 95886; 95913

== ENCOUNTER 2025-06-16 07:28 | Day surgery (SDC) | payer BC, SELFPAY ==
[2025-06-02 11:11] LABS: Hematocrit 40.6 % (37-47); Hemoglobin 13.3 g/dL (12.0-15.0); Mean Corp Hgb Conc 32.8 g/dL (32-36); Mean Corpuscular Volume 92.3 fL (81-99); Mean Platelet Vol. 11.5 fl (6.2-12.0); Platelet Count 314 K/mm3 (150-450); RBC Distribution Width CV 13.3 % (11.6-14.6); RBC Distribution Width SD 45.1 fl (35.1-43.9); Red Blood Count 4.40 M/mm3 (4.2-5.4); White Blood Count 8.0 K/mm3 (4.4-11.0)
--- NOTE | 2025-06-06 12:49 | EKG12_ITS ---
Test Reason : PREOP Blood Pressure : */* mmHG Vent. Rate : 66 BPM Atrial Rate : 66 BPM P-R Int : 168 ms QRS Dur : 82 ms QT Int : 420 ms P-R-T Axes : -19 28 69 degrees QTcB Int : 440 ms Normal sinus rhythm Nonspecific ST abnormality Abnormal ECG When compared with ECG of 19-Jul-2019 04:14, No significant change was found Confirmed by MAURI GO, JOSE DAVID ([id number]), news videotape editor APPLE RIDDLE ([id number]) on 06/07/2025 8:13:22 AM Referred By: Vinod Lr Confirmed By: JOSE DAVID DOTSON MD
--- NOTE | 2025-06-07 15:28 | PAT.ANE_ITS ---
Pre-Assessment Diagnosis/Proposed Procedure Planned Operative Procedure(s): (L) Double Osteotomy of the left foot, Capsulotomy of the metatarsophalangeal joint, Flexor dithorium longus tendon transfer, Correction of the left second digit. 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 When Was Last Pacemaker Check QUESTION #4 FULL TEXT: You/Your Family Experience fever (hyperthermia) with Anesthesia Last Oral Intake Last Oral intake: Last Oral Intake NPO since Meds taken in AM with sips of water? Meds patient instructed to take am of surgery PONV PONV - casting machine service operator: PONV - casting machine service operator Female Yes 06/02/25 10:06 HX of Motion Sickness Yes 06/02/25 10:06 HX of N/V After Surgery No 06/02/25 10:06 Non-Smoker No 06/02/25 10:06 Duration of Surgery greater Yes 06/02/25 10:06 than 60 minutes Number of Risk Factors 3 06/02/25 10:06 PONV Score Moderate Risk 06/02/25 10:06 Height & Weight Height & Weight: Anesthesia: Height & Weight Height 5 ft 2 in 12/21/23 16:28 Respiratory Assessment Respiratory Assessment - casting machine service operator: Respiratory Tract Infection Hx - casting machine service operator Hx Respiratory Tract Infection Yes: 05/03/25 BRONCHITIS 06/02/25 10:06 STOP Sleep Apnea STOP Sleep Apnea - casting machine service operator: STOP Sleep Apnea - casting machine service operator Hx Hypertension No 06/02/25 10:06 Hx Sleep Apnea Yes 06/02/25 10:06 CPAP Yes 06/02/25 10:06 BIPAP No 06/02/25 10:06 Do you snore loudly (louder than talking or can be heard Do you often feel tired/ fatigued/ sleepy during daytime? Has anyone observed you stop breathing during sleep? STOP Results Positive 06/02/25 10:06 QUESTION #5 FULL TEXT : Do you snore loudly (louder than talking or can be heard through closed doors)? 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 Specify any problems Hx of Preganancy in last 3 N/A 06/02/25 10:06 Months Nurse Filling Out Transfusion NBUCHER 06/02/25 10:06 & Questions: Date: 06/02/25 06/02/25 10:06 Time: 10:08 06/02/25 10:06 Patient unable to answer at this time (ie. 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 machine service operator: /Reproductive Hx- casting machine service operator Hx Now No 06/02/25 10:06 Gestational Age (in weeks): EDC: Hx Hx Para Hx Section SAB No 06/02/25 10:06 [facility] Medical History (Updated 06/02/25 @ 10:12 by Lisbet Apple) Post-menopausal Depression Anxiety Hypothyroid Thyroid disease Restless legs GERD (gastroesophageal reflux disease) Smoker CPAP (continuous positive airway pressure) dependence Sleep apnea Migraines delivery due to maternal disorder Home Medications ?Medication ?Instructions ?Recorded ?Last Taken ?Type multivitamin 1 tab PO DAILY supplement Unknown History bupropion HCl 150 mg 24 hr tablet, 300 mg PO DAILY ant idepressant 03/06/17 06/09/18 09:30 History extended release 300 MG topiramate 200 mg tablet 100 mg PO BID headaches 02/1306/09/18 09:30 History 100 MG vitamin B complex 1 ea PO DAILY supplement Unknown History ascorbic acid (vitamin C) 500 mg 500 mg PO DAILY@0800 low vit c 06/07/18 Unknown History tablet citalopram 20 mg tablet 20 mg PO DAILY depression Unknown History famotidine 20 mg tablet 20 mg PO DAILY reflux 06/09/18 09:30 History 20 MG levocetirizine 5 mg tablet 5 mg PO DAILY allergies Unknown History montelukast 10 mg tablet 10 mg PO DAILY allergies Unknown History gabapentin 100 mg capsule 200 mg PO TID 06/02/25 Unkno wn History galcanezumab-gnlm 120 mg/mL 120 mg subcut QMONTH 06/02 Unknown History subcutaneous pen injector (Emgality Pen) Allergy/AdvReac Type Severity Reaction Status Date / Time codeine AdvReac Intermediate Vomiting Verified 06/02/25 09:58 Family History Grandfather Cancer Brother Diabetes Father Hypertension Grandmother Hypertension Surgical History (Updated 06/02/25 @ 10:12 by Lisbet Apple) History of esophagogastroduodenoscopy (EGD) History of fusion of cervical spine History of cholecystectomy (~07/2019) H/O dilation and curettage Social History Smoking Status: Current every day smoker tobacco type: cigarettes alcohol intake: never substance use type: does not use seatbelt use: always do you feel safe at home: Yes Audit: Pertinent Findings Pertinent Findings EKG Perinent findings: EKG 06/06/2025. Normal sinus rhythm. When compared with ECG of July 19, 2019 no significant change was found. Recommendation Anesthesia Recommendation Anesthesia recommendation: OPTIMIZED for anesthesia
[2025-06-09 13:00] LABS: Magnesium 2.2 mg/dL (1.5-2.2)
[2025-06-16] VITALS (11 sets, daily range): BP systolic 124–157; BP diastolic 73–87; PULSE 69–81; RESP 16; TEMP 36.2–36.9; O2SAT 87–100; BMI 40.7
--- NOTE | 2025-06-16 07:32 | OP.PCM_ITS ---
Operative Report (Standard) Operative Information Date of Procedure: 06/16/25 Pre-Operative Diagnosis: 1. Pain, left toes 2. Hallux valgus, left foot 3. Hammertoe, second digit, left foot Post-Operative Diagnosis: Same as preoperative diagnosis Surgery/Procedure Performed: Procedure #1: Double osteotomy, left foot Procedure #2: Capsulotomy, first metatarsophalangeal joint, left foot Procedure #3: Correction of hammertoe, second digit, left foot book salesman: Yes Electrical And Instrumentation Manager: Lee Linares PGY2 Tasks completed by manufacturing assistant: Retracting Additional human resources executive assistant?: No Type of Anesthesia: General/Regional RN Documented Start/Stop Times: Operation Date: 06/16/25 09:30 Case Time Into Pre-Op 06/16/25 07:33 Anesthesia Start 06/16/25 09:38 Into Room 06/16/25 09:38 Procedure Start 06/16/25 10:04 Procedure End 06/16/25 12:04 Anesthesia End 06/16/25 12:09 Out of Room 06/16/25 12:09 Into Recovery 06/16/25 12:11 Into Phase II Recovery 06/16/25 13:16 Out of Recovery 06/16/25 13:16 Procedure Start Time: 10:04 Procedure Stop Time: 12:04 Select all DRAINS/GRAFTS/IMPLANTS that apply: Implanted device Implanted device details: [employer] medical hardware, eloise plasty Special Medications: Per anesthesia Estimated Blood Loss: 30 mL Fluids Replaced: Per anesthesia Specimen collected: No Description of surgery: Indications For Operation: Ms. Alvarado is a 54-year-old Fe who was admitted to [facility] for left foot surgery consisting of hallux valgus deformity correction with hammertoe correction to the second digit left foot. Patient is well-known to my practice and has failed outpatient conservative treatment consisting of home physical therapy, shoe gear modification, oral steroids, oral nonsteroidal anti- inflammatories as well as taping and offloading. Due to the continued pain and deformity the patient continues to have pain especially with walking and standing for long periods of time. After exhausting conservative treatment greater than 6 months we elected to move forward with surgical intervention as stated above. All risk and benefits were discussed with the patient in great detail. Patient did have surgical consultation in private office with chart review and consent signed. Due to continued pain to the left foot as well as hallux valgus deformity with hammertoe deformity to the second digit left foot it was deemed necessary at this time to take the patient to the operating room performed above procedure to help reduce her constant pain. The nature of the problem, anticipated procedures, postop recovery/convalences and risk/complications include but not limited to infection, wound healing complications, digital amputation, hypertrophic scarring, numbness, tingling, chronic pain, CRPS, over and under correction, recurrence of deformity, DVT and or PE and the need for further surgery have been discussed in great detail with the patient. All questions have been answered to the patient's satisfaction. There are no guarantees given as to the outcome of the procedure. Description of Procedure: Under mild sedation, the patient was brought into the operating room and placed on the operating table in supine position. Once the patient was under general anesthesia with laryngeal mask airway, the left lower extremity was blocked by anesthesia prior to the procedure with popliteal and adductor block in the PACU. Please see anesthesia notes for further detail. Next, a well-padded thigh tourniquet was applied to the left lower extremity. Next, the left lower extremity was prepped and draped in normal aseptic manner. Next, a timeout was then undertaken verifying the correct patient, extremity, visibility of preoperative markings, availability of the equipment. Next, attention was directed to the left lower extremity. Using a foreign Esmarch, left lower extr emity was exsanguinated and elevated to 60 degrees for 1 minute. Procedure #1: Double osteotomy, left foot (CPT code: 83177) Next, attention was directed to the left lower extremity at the level of the first metatarsal. Using a K wire, skin marker and large C-arm fluoroscopy the transverse osteotomy was marked out with large C-arm fluoroscopy followed by the long medial access of the first metatarsal. Once everything was confirmed. Using a K wire, the K wire was inserted at the level of the osteotomy from medial lateral direction making sure that it was bicortical. Once this was confirmed the cut guide was placed over the K wire and a 1.5 to 2 cm incision was made with a #15 blade down to bone without incident. Using a [place] elevator the periosteum was removed from the dorsal and plantar aspect of the osteotomy site. Next the jig was placed and secured proximally using a 1.6 mm K wire to the proximal hole followed by a 2.2 mm K wire dorsally prior to the osteotomy. Next using the sagittal saw provided by the [facility] osteotomy was performed through and through along the dorsal and plantar aspect of the first metatarsal. The capital fragment was stressed and complete osteotomy was noted. Next, using the [place] elevator the capital fragment was shifted laterally and the jig holding the implant was inserted into the medullary canal. The jig and plate were fully seated with a couple taps of the mallet which was also checked on AP and lateral C arm fluoroscopy. It was noted at this time that the implant was placed in the medullary canal, ensuring the marketing development representative was fully seated on the medial edge of the osteotomy and in line with the metatarsal shaft. The positioning cup was tightened to stable lysed the marketing development representative and alignment against the left foot. The implant was roughly parallel with the second metatarsal and a K wire was placed through the previous incision or cup to stabilize the jig. Transitional correction was performed manually and checked on C arm fluoroscopy for position. Next, rotational correction was performed using the rotational guide and 2.2 mm K wire in the dorsal capital fragment. Once the sesamoidal position was ideal back to position 3 and 2 temporary pins were placed across the capital fragment. Next, the drill guide was placed over the marketing development representative. The dorsal drill hole was performed first down to positive soft followed by the plantar drill hole with the drill being left for stabilization into the plantar drill hole location. Next the 10 mm locking screw was placed in the dorsal hole. The plantar drill was removed and the 14 mm locking screw was placed into the plantar hole. The depth of the screws were checked in the AP and lateral view. Next, the angled screw hole was drilled per the manufactures recommendation with the rep in the room. Next, the 14 mm locking screw was placed and the angled screw hole. Next, the 1 threaded connection mary kay was removed from the marketing development representative. A free K wire was placed in the proximal hole in the implant was secured with a headless 18 mm cannulated screw. Care was taken not to fully bury the screw. Next, palpation of the medial first metatarsal showed concern from a medial spike, using the power rasp provided by the [facility] the medial spike was removed down to smooth bone without incident. The incision was flushed with cold ollie of normal saline. After the correction was performed there still showed evidence of mild hallux valgus deformity and plan for capsulotomy/capsulorrhaphy was done next. Procedure #2: Capsulotomy, first metatarsophalangeal joint, left foot (CPT code: 61833) Next, attention was directed to the dorsal medial aspect of the first metatarsophalangeal joint of the left foot. Using a #15 blade a small incision was carried down to the level of the joint space with blunt dissection carried down to the level of capsule. Using the speed release, a capsulotomy was performed releasing the adductor hallucis tendon, lateral joint capsule and lateral collateral ligaments of the first metatarsal phalangeal joint. A good release was noted. Next, attention was directed back to the small incision on the medial aspect of the osteotomy site of the double osteotomy. The incision was carried distally exposing the medial capsule and a T capsulorrhaphy was performed and secured in place with 2-0 Vicryl in simple erupted suture technique. After lateral release and capsulorrhaphy there showed a good rectus hallux. The incisions were flushed with copious normal saline. Procedure #3: Correction of hammertoe, second digit, left foot (CPT code: 00544?T1) Next, attention was directed to the dorsal aspect of the second metatarsal phalangeal joint. A full-thickness vision down to subcutaneous tissue was performed with a #15 blade without incident. Continued blunt dissection was carried down to the level of the extensor which was retracted laterally with double skin hooks. The second metatarsophalangeal joint was identified with large C-arm fluoroscopy and a dorsal capsulotomy was performed with a #15 blade without incident. Kelikian push-up test was performed on the plantar aspect of the subsecond metatarsal head and great reduction of the hammertoe contracture was noted. This incision was flushed with copious normal saline. At this time the left lower extremity tourniquet was deflated and reperfusion was noted instantly to the left lower extremity. All bleeders were cauterized and ligated as necessary. The deep layer to to the second metatarsophalangeal joint incision was reapproximated closed with 3-0 Vicryl in buried suture technique. The skin was reapproximated closed with horizontal mattress suture technique. Next attention was directed back to the medial incision, the deep layer was reapproximated closed with 3-0 Vicryl in running locking suture technique. The subcutaneous layer was reapproximated closed with 3-0 Vicryl in running suture technique. The skin was reapproximated and closed with 3-0 Vicryl in simple erupted suture technique. The left lower extremity was wiped clean and patted dry. All incisions were dressed with Betadine soaked Adaptic dry sterile dressing and a double layer Elizondo AO splint was donned to left lower extremity at 90 degrees. The patient tolerated the procedure and anesthesia well and apparent satisfa ctory condition and was transported to the PACU for further monitoring prior to discharge home. Vital signs stable and vascular status intact to all digits bilateral. Post Operative Plan: Weightbearing: Nonweightbearing to the left lower extremity. Full weightbearing right lower extremity. Antibiotics: 2 g Ancef through the IV DVT Prophylaxis: 81 mg aspirin twice daily Lester: None Dressing: Betadine soaked Adaptic dry sterile dressing double layer Elizondo AO splint at 90 degrees. X-Rays: Post-operative films taken on the operating room. Pain Medication: Oxycodone 5 mg, Tylenol 650 mg Follow-up: Patient will follow-up at already scheduled postoperative appointment in private office. Surgical Findings: Good correction of hallux valgus deformity to the left lower extremity. Good correction of hammertoe contracture at the level of the second metatarsal phalangeal joint. Complications Complications: No Admit VTE Documentation VTE Present on Admission: No VTE Mechan Device Prophylaxis: SCD's VTE Pharm Prophylaxis ordered?: Yes
--- OUTSIDE RECORDS SUMMARY | 2025-06-16 07:36 | XMS RPT_ITS | CCD ---
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 Role Phone Cynthia DEWITTAnny Primary Care Provider MALYS, ANNY A Primary Care Unavailable ADITYA BARILLAS Attending Unavailable MALYS, ANNY A Primary Care Unavailable EDUARDO BANKS Attending Unavailable MALYS, ANNY A Primary Care Unavailable Vinod Lr Attending Unavailable Vinod Lr Referring Unavailable [place] Unavailable Malys, Anny Primary Care Unavailable Malys, Anny Attending Unavailable Malys, Anny Primary Care Unavailable Malys, Anny Referring Unavailable Malys, Anny Primary Care Unavailable Malys, Anny Attending Unavailable Malys, Anny Attending Unavailable Malys, Anny Primary Care Unavailable Malys, Anny Primary Care Unavailable Kelly Centeno Attending Unavailable JacoboKelly Referring Unavailable Malys, Anny Attending Unavailable Malys, Anny Primary Care Unavailable Allergies Allergy Classification Reported Allergen(s) Allergy Type Date of Onset Reaction(s) Facility (5 sources) Codeine; Translations: [CODEINE] Drug Allergy 10-18-2005 GI Upset [facility] (1 source) Codeine Drug Allergy 06-02-2025 [facility] Repository Medications Current Medications Medication Drug Class(es) Dates Sig (Normalized) Sig (Original) amoxicillin 875 mg / clavulanate 125 mg oral tablet (1 source) Penicillin-class Antibacterial Start: 06-08-2024 End: 06-15-2024 take 1 tablet by mouth twice daily amoxicillin-clav ulanate potassium (AUGMENTIN) 875-125 mg per tablet Indications: Bacterial sinusitis Take 1 tablet by mouth two times a day for 7 days. 14 tablet 06/08/2024 06/15/2024 Active ascorbic acid 500 mg oral tablet (4 sources) Vitamin C ascorbic acid, vitamin C, (VITAMIN C) 500 mg tablet Take by mouth. Active Comment on above: Take by mouth. 24 hr buPROPion hydrochloride 300 mg extended release oral tablet (5 sources) Aminoketone Start: 11-16-2018 End: 09-25-2022 take 1 tablet by mouth once daily buPROPion XL (WELLBUTRIN XL) 300 mg 24 hr tablet Take 1 tablet by mouth once daily. 11/16/2018 Active Comment on above: Take 1 tablet by kalyan th once daily. Take 300 mg by mouth once daily. busPIRone hydrochloride 5 mg oral tablet (3 sources) Start: 01-07-2023 take 1 tablet by mouth twice daily busPIRone (BUSPAR) 5 mg tablet Take 5 mg by mouth twice daily. 01/07/2023 Active Comment on above: Take 5 mg by mouth t wice daily. cholecalciferol, vitamin D3, (VITAMIN D3 ORAL) (4 sources) cholecalciferol, vitamin D3, (VITAMIN D3 ORAL) Take by mouth once daily. Active cholecalciferol, vitamin D3, (VITAMIN D3 ORAL) Take by mouth once daily. 0 Active Comment on above: Take by mouth once d aily. citalopram 40 mg oral tablet (4 sources) Serotonin Reuptake Inhibitor Start: 11-04-2022 take 1 tablet by mouth once daily at bedtime citalopram (CELEXA) 40 mg tablet Take 40 mg by mouth daily at bedtime. 11/04/2022 Active citalopram (FAWAD XA) 20 mg tablet Take by mouth once daily. 0 Active Comment on above: Take by mouth once d aily. Take 40 mg by mouth daily at bedtime. COMPOUNDED PRESCRIPTION (4 sources) Start: 02-20-2010 COMPOUNDED PRESCRIPTION Allergy Injections: Every Four Weeks 0 02/20/2010 Active Comment on above: Allergy Injections: Every Four Weeks cyanocobalamin, vitamin B-12, (VITAMIN B-12 ORAL) (4 sources) cyanocobalamin, vitamin B-12, (VITAMIN B-12 ORAL) Take by mouth once daily. Active cyanocobalamin, vitamin B-12, (VITAMIN B-12 ORAL) Take by mouth once daily. 0 Active Comment on above: Take by mouth once d aily. DIGESTIVE ENZYMES CAP (4 sources) Start: 008 DIGESTIVE ENZYMES CAP two tabs daily 0 12/30/2007 Active Comment on above: two tabs daily famotidine 20 mg oral tablet (4 sources) Histamine-2 Receptor Antagonist Start: 009 famotidine(PEPCID 20 MG TAB) one tablet daily 0 01/01/2009 Active Comment on above: one tablet daily fluticasone propionate 0.05 mg/actuat metered dose nasal spray (4 sources) Corticosteroid Start: take 2 spray(s) by mouth once daily fluticasone (FLONASE) 50 mcg/actuation nasal spray Indications: Sinus pain Use 2 Sprays in each nostril once daily. Rinse mouth after use. 1 Each 05/04/2022 Active Comment on above: Use 2 Sprays in each nostril once daily. Rinse mouth after use. gabapentin 100 mg oral capsule (3 sources) Anti-epileptic Agent Start: take 1-3 capsules by mouth three times daily gabapentin (NEURONTIN) 100 mg capsule take 1-3 capsules by mouth three times a day if needed 12/22/2022 Active Comment on above: take 1-3 capsules by mouth three times a day if needed levocetirizine dihydrochloride 5 mg oral tablet (5 sources) Histamine-1 Receptor Antagonist Start: 019 End: take 1 tablet by mouth once daily at bedtime Levocetirizine 5 mg tablet Take 1 tablet by mouth daily at bedtime. 11/16/2018 Active Comment on above: Take 1 tablet by kalyan th daily at bedtime. Take 5 mg by mouth o nce daily. liothyronine sodium 0.005 mg oral tablet (4 sources) l-Triiodothyronine Start: 023 take 1 tablet by mouth once daily liothyronine (CYTOMEL) 5 mcg tablet take 1 tablet by mouth daily ON AN EMPTY STOMACH 09/14/2022 Active Comment on above: take 1 tablet by kalyan th daily ON AN EMPTY STOMACH montelukast 10 mg oral tablet (4 sources) Leukotriene Receptor Antagonist take 1 tablet by mouth once daily at bedtime montelukast (SINGULAIR) 10 mg tablet Take 10 mg by mouth daily at bedtime. Active Comment on above: Take 10 mg by mouth daily at bedtime. MULTIVITAMIN TAB (4 sources) Start: MULTIVITAMIN TAB Take one(1) tablet daily. 0 10/21/2005 Active Comment on above: Take one(1) tablet d aily. promethazine hydrochloride 25 mg oral tablet (1 source) Phenothiazine Start: End: take 1 tablet by mouth every six hours as needed for nausea promethazine (PHENERGAN) 25 mg tablet Indications: Intractable migraine without aura and with status migrainosus Take 1 tablet by mouth every 6 hours as needed for nausea/vomiting for up to 7 days. 12 tablet 0 09/25/2022 10/02/2022 Active Comment on above: Take 1 tablet by kalyan th every 6 hours as needed for nausea/vomiting for up to 7 days. rizatriptan 10 mg oral tablet (4 sources) Serotonin-1b and Serotonin-1d Receptor Agonist Start: take 1 tablet by mouth every two hours rizatriptan (MAXALT) 10 mg tablet take 1 tablet by mouth AT ONSET OF MIGRAINE may repeat in 2 hours... (REFER TO PRESCRIPTION NOTES). 09/08/2022 Active Comment on above: take 1 tablet by kalyan th AT ONSET OF MIGRAINE may repeat in 2 hours... (REFER TO PRESCRIPTION NOTES). VITAMIN B COMPLEX ORAL (4 sources) VITAMIN B COMPLE X ORAL Take by mouth once daily. Active VITAMIN B COMPLE X ORAL Take by mouth once daily. 0 Active Comment on above: Take by mouth once d aily. Completed/Discontinued Medications Medication Drug Class(es) Dates Sig (Normalized) Sig (Original) acetaminophen 325 mg / HYDROcodone bitartrate 5 mg oral tablet (1 source) Opioid Agonist Start: 10-23-2018 End: 09-25-2022 take 1 tablet by mouth every six hours as needed HYDROcodone-acetami nophen (NORCO) 5-325 mg per tablet Take 1 tablet by mouth every 6 hours as needed. 0 10/23/2018 09/25/2022 Discontinued Comment on above: Take 1 tablet by kalyan th every 6 hours as needed. cyclobenzaprine hydrochloride 10 mg oral tablet (1 source) Muscle Relaxant Start: 10-06-2018 End: 09-25-2022 take 1 tablet by mouth three times daily as needed for muscle spasms cyclobenzaprine (FLEXERIL) 10 mg tablet Indications: Cervical stenosis of spine Take 1 tablet by mouth three times daily as needed for Muscle Spasm. 30 tablet 0 10/06/2018 09/25/2022 Discontinued Comment on above: Take 1 tablet by [facility] three times daily as needed for Muscle Spasm. 24 hr desvenlafaxine succinate 50 mg extended release oral tablet (1 source) Serotonin and Norepinephrine Reuptake Inhibitor take 1 tablet by mouth once daily, then take 1 tablet by mouth every twenty-four hours desvenlafaxine ER (PRISTIQ) 50 mg 24 hr tablet Take 50 mg by mouth once daily. 0 Active Comment on above: Take 50 mg by mouth once daily. eletriptan 40 mg oral tablet (1 source) Serotonin-1b and Serotonin-1d Receptor Agonist End: 09-25-2022 take 1 tablet by mouth every two hours as needed eletriptan (RELPAX) 40 mg tablet Take 40 mg by mouth as needed. may repeat in 2 hours if necessary 0 09/25/2022 Discontinued Comment on above: Take 40 mg by mouth as needed. may repeat in 2 hours if necessary 2 ml ketorolac tromethamine 30 mg/ml injection (1 source) Nonsteroidal Anti-inflammatory Drug, Cyclooxygenase Inhibitor Start: 09-25-2022 End: 09-25-2022 keTORolac 60 mg injection (TORADOL) Magnesium (2 sources) End: 09-25-2022 take 400 mg by mouth once daily in the morning MAGNESIUM ORAL Take 400 mg by mouth every morning. 0 09/25/2022 Discontinued End: 09-25-2022 take 1 tablet by mouth once daily at bedtime Magnesium 250 mg tab Take 250 mg by mouth daily at bedtime. 0 09/25/2022 Discontinued Comment on above: Take 400 mg by mouth every morning. Take 250 mg by mouth daily at bedtime. topiramate 200 mg oral tablet (2 sources) End: 09-25-2022 take 1 tablet by mouth once daily topiramate (TOPAMAX) 100 mg tablet Take 100 mg by mouth once daily. 0 09/25/2022 Discontinued End: 09-25-2022 topiramate 200 mg tablet Gonzalo e 100 mg by mouth twice daily. 0 09/25/2022 Discontinued Comment on above: Take 100 mg by mouth twice daily. Take 100 mg by mouth once daily. zonisamide 100 mg oral capsule (1 source) Anti-epileptic Agent End: 09-25-2022 take 1 capsule by mouth twice daily zonisamide (ZONEGRAN) 100 mg capsule Take 100 mg by mouth twice daily. 0 09/25/2022 Discontinued Comment on above: Take 100 mg by mouth twice daily. Problems Active Problems Problem Classification Problem Date Documented Date Episodic/Chronic Allergic reactions (1 source) Urticaria, unspecified; Translations: [Urticaria, unspecified] Onset: 06-04-2025 Episodic Bacterial infection; unspecified site (1 source) Other specified bacterial agents as the cause of diseases classified elsewhere; Translations: [Bacterial sinusitis] Onset: 04-19-2025 Episodic Chronic obstructive pulmonary disease and bronchiectasis (1 source) Bronchitis, not specified as acute or chronic; Translations: [Bronchitis] Onset: 04-19-2025 Episodic E Codes: Adverse effects of medical drugs (1 source) Adverse effect of unspecified systemic antibiotic, initial encounter; Translations: [Antibiotic-induced yeast infection] Onset: 04-19-2025 Episodic Esophageal disorders (4 sources) Gastroesophageal reflux disease; Translations: [Gastro-esophageal reflux disease without esophagitis] Onset: 11-03-2005 11-03-2005 Chronic Headache; including migraine (5 sources) Refractory migraine without aura; Translations: [Migraine without aura, intractable, with status migrainosus] Onset: 03-09-2003 Chronic Mood disorders (4 sources) Depressive disorder; Translations: [Other specified depressive episodes] Onset: 10-22-2005 10-22-2005 Chronic Mycoses (1 source) Candidiasis, unspecified; Translations: [Antibiotic-induced yeast infection] Onset: 04-19-2025 Episodic Other aftercare (1 source) Encounter for therapeutic drug level monitoring; Translations: [Encounter for therapeutic drug level monitoring] Onset: 06-02-2025 Episodic Other connective tissue disease (1 source) Neuralgia and neuritis, unspecified; Translations: [Neuralgia and neuritis, unspecified] Onset: 06-04-2025 Episodic Other endocrine disorders (1 source) Endocrine disorder, unspecified; Translations: [Endocrine disorder, unspecified] Onset: 06-02-2025 Episodic Other nervous system disorders (1 source) Anesthesia of skin; Translations: [Anesthesia of skin] Onset: 06-07-2025 Episodic Other upper respiratory infections (2 sources) Bacterial sinusitis; Translations: [Chronic sinusitis, unspecified] Onset: 04-19-2025 06-08-2024 Chronic Spondylosis; intervertebral disc disorders; other back problems (5 sources) Spinal stenosis in cervical region; Translations: [Spinal stenosis, cervical region] Onset: 10-05-2018 10-06-2018 Episodic Substance-related disorders (4 sources) Nicotine dependence; Translations: [Nicotine dependence, unspecified, uncomplicated] Onset: 10-06-2018 10-06-2018 Chronic Thyroid disorders (1 source) Hypothyroidism, unspecified; Translations: [Hypothyroidism, unspecified] Onset: 11-07-2024 Chronic Past or Other Problems Problem Classification Problem Date Documented Da te Episodic/Chronic Gastritis and duodenitis (4 sources) Acute gastritis; Translations: [Acute gastritis without bleeding] Onset: 12-30-2005 12-30-2005 Episodic Other upper respiratory infections (2 sources) Viral upper respiratory tract infection; Translations: [Acute upper respiratory infection, unspecified] Onset: 01-05-2025 08-04-2023 Episodic Syncope (1 source) Syncope and collapse; Translations: [Syncope and collapse] Onset: 11-03-2005 Resolved: 06-17-2016 06-17-2016 Episodic Results Test Name Value Interpretation Reference Range Facility Magnesiumon 06-09-2025 Magnesium [Mass/Vol] 2.2 mg/dL Normal 1.5-2.2 [facility] Comment on above: Performed By: #### L 100.0100, L501.9520, L506.0400, L500.4050, L501.07460 #### [facility] [place] [place], [address] Nicotine Screen Bloodon 05-16 COTININE BLOOD 138.2 ng/mL Normal . [facility] Comment on above: Result Comment: This test was developed and its performance characteristics determined by [facility]. It has not been cleared or approved by the Food and Drug Administration. Cotinine levels greater than 20.0 are consistent with the use of tobacco or tobacco cessation products. Performed at: [address] [id number] Sales Effectiveness Manager: Chad Munoz MD, Phone: [phone] Performed By: #### L 506.1001, J0330.8046, L501.9985 #### [facility] [address] [place], [address] NICOTINE BLOOD 11.8 ng/mL Normal . [facility] Comment on above: Result Comment: This test was developed and its performance characteristics determined by [employer]. It has not been cleared or approved by the Food and Drug Administration. Nicotine levels greater than 2.0 are consistent with the use of tobacco or tobacco cessation products. Performed By: #### L 506.1001, L3600.3400, L501.9985 #### [facility] [address] [place], [address] MR/PAT.Jaime 06-07-2025 MR/PAT.AMY [facility] Medical Records Department [address] [place] [address] PAT - Anesthesia 06/07/25 1528 MR#: [id number] Acct: [id number] Name: FIDELIA ALVARADO KENNY Rep #: [id number] : 1970 54 From: [place] MD PCP: Dr. Anny Marie, DO Status:PRE [facility] Y Race: C Location: [facility] Pre-Assessment Diagnosis/Proposed Procedure Planned Operative Procedure(s): (L) Double Osteotomy of the left foot, Capsulotomy of the metatarsophalangeal joint, Flexor dithorium longus tendon transfer, Correction of the left second digit. Anesthesia History Anesthesia History - warp tester: Anesthesia History - warp tester Hx Hospitalization No 06/02/25 10:06 Any Problems With Anesthesia No 06/02/25 10:06 Cholinesterase deficiency No 06/02/25 10:06 You/Your Family Experience No 06/02/25 10:06 fever (hyperthermia) with Relationship Recent Exposure to Contagious Disease Does patient have nerve No 06/02/25 10:06 stimulator Patient instructed to have device shut off --Does patient have Pacemaker or ICD? When Was Last Pacemaker Check QUESTION #4 FULL TEXT: You/Your Family Experience fever (hyperthermia) with Anesthesia Last Oral Intake Last Oral intake: Last Oral Intake NPO since Meds taken in AM with sips of water? Meds patient instructed to take am of surgery PONV PONV - warp tester: PONV - warp tester Female Yes 06/02/25 10:06 HX of Motion Sickness Yes 06/02/25 10:06 HX of N/V After Surgery No 06/02/25 10:06 Non-Smoker No 06/02/25 10:06 Duration of Surgery greater Yes 06/02/25 10:06 than 60 minutes Number of Risk Factors 3 06/02/25 10:06 PONV Score Moderate Risk 06/02/25 10:06 Height Weight Height Weight: Anesthesia: Height Weight Height 5 ft 2 in 12/21/23 16:28 Respiratory Assessment Respiratory Assessment - warp tester: Respiratory Tract Infection Hx - warp tester Hx Respiratory Tract Infection Yes: 05/03/25 BRONCHITIS 06/02/25 10:06 STOP Sleep Apnea STOP Sleep Apnea - warp tester: STOP Sleep Apnea - warp tester Hx Hypertension No 06/02/25 10:06 Hx Sleep Apnea Yes 06/02/25 10:06 CPAP Yes 06/02/25 10:06 BIPAP No 06/02/25 10:06 Do you snore loudly (louder than talking or can be heard Do you often feel tired/ fatigued/ sleepy during daytime? Has anyone observed you stop breathing during sleep? STOP Results Positive 06/02/25 10:06 QUESTION #5 FULL TEXT : Do you snore loudly (louder than talking or can be heard through closed doors)? 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 Specify any problems Hx of Preganancy in last 3 N/A 06/02/25 10:06 Months Nurse Filling Out Transfusion NBUCHER 06/02/25 10:06 Questions: Date: 06/02/25 06/02/25 10:06 Time: 10:08 06/02/25 10:06 Patient unable to answer at this time (ie. confused, unrespo /Reproduction History /Reproductive History - warp tester: /Reproductive Hx- warp tester Hx Now No 06/02/25 10:06 Gestational Age (in weeks): EDC: Hx Hx Para Hx Section SAB No 06/02/25 10:06 [facility] Medical History (Updated 06/02/25 @ 10:12 by Lisbet Apple) Post-menopausal Depression Anxiety Hypothyroid Thyroid disease Restless legs GERD (gastroesophageal reflux disease) Smoker CPAP (continuous positive airway pressure) dependence Sleep apnea Migraines delivery due to maternal disorder Home Medications ???Medication ???Instructions ???Recorded ???Last Taken ???Type multivitamin 1 tab PO DAILY supplement 02/25/17 Unknown History bupropion HCl 150 mg 24 hr tablet, 300 mg PO DAILY antidepressant 0 03/06/17 06/09/18 09:30 History extended release 300 MG topiramate 200 mg tablet 100 mg PO BID headaches 03/06/17 0 06/09/18 09:30 History 100 MG vitamin B complex 1 ea PO DAILY supplement 03/06/17 Unknown History ascorbic acid (vitamin C) 500 mg 500 mg PO DA (more content not included)... Normal [facility] 12 Lead EKGon 06-06-2025 12 Lead EKG [facility] [address] [place] [address] 12 Lead EKG 06/06/25 1307 MR#: [id number] Acct: [id number] Name: FIDELIA ALVARADO KENNY Rep #: [id number] : 1970 54 From: Shawn Conklin MD Attending Dr: Dr. Vinod Lr DPM Status: MN E SDC Ordering Dr: Fernando Rogers MD Date: 06/06/25 Location: [facility] Sex: F C Admitted: Test Reason : PREOP Blood Pressure : */* mmHG Vent. Rate : 66 BPM Atrial Rate : 66 BPM P-R Int : 168 ms QRS Dur : 82 ms QT Int : 420 ms P-R-T Axes : -19 28 69 degrees QTcB Int : 440 ms Normal sinus rhythm Nonspecific ST abnormality Abnormal ECG When compared with ECG of 19-Jul-2019 04:14, No significant change was found Confirmed by MAURI GO, SHAWN ([id number]), brands editor APPLE RIDDLE ([id number]) on 06/07/2025 8:13:22 AM Referred By: Vinod Lr Confirmed By: SHAWN CONKLIN MD 06/07/25 0813 Date Shawn Conklin MD CC: DPM Dr. Vinod Lr; Dr. Fernando Rogers MD; Dr. Anny Marie, DO Signed Normal [facility] CBC-Complete Blood Cnt No Di ffon 06-02-2025 Erythrocyte distribution width (RBC) [Ratio] 13.3 % Normal 11.6-14.6 [facility] Comment on above: Order Comment: ADD O NTO THG 1 G Performed By: #### L 100.0100, L501.9520, L506.0400, L500.4050, L501.14576 #### [facility] [address] [place], [address] Hematocrit (Bld) [Volume fraction] 40.6 % Normal 37-47 [facility] Comment on above: Order Comment: ADD O NTO THG 1 G Performed By: #### L 100.0100, L501.9520, L506.0400, L500.4050, L501.49674 #### [facility] [address] [place], [address] Hemoglobin (Bld) [Mass/Vol] 13.3 g/dL Normal 12.0-15.0 [facility] Comment on above: Order Comment: ADD O NTO THG 1 G Performed By: #### L 100.0100, L501.9520, L506.0400, L500.4050, L501.06619 #### [facility] [address] [place], [address] MCH (RBC) [Entitic mass] 30.2 pg Normal 27.0-32.0 [facility] Comment on above: Order Comment: ADD O NTO THG 1 G Performed By: #### L 100.0100, L501.9520, L506.0400, L500.4050, L501.42720 #### [facility] [address] [place], [address] MCHC (RBC) [Mass/Vol] 32.8 g/dL Normal 32-36 [facility] Comment on above: Order Comment: ADD O NTO THG 1 G Performed By: #### L 100.0100, L501.9520, L506.0400, L500.4050, L501.85650 #### [facility] [address] [place], [address] MCV (RBC) [Entitic vol] 92.3 fL Normal 81-99 [facility] Comment on above: Order Comment: ADD O NTO THG 1 G Performed By: #### L 100.0100, L501.9520, L506.0400, L500.4050, L501.80503 #### [facility] [address] [place], [address] Platelet mean volume (Bld) [Entitic vol] 11.5 fL Normal 6.2-12.0 [facility] Comment on above: Order Comment: ADD O NTO THG 1 G Performed By: #### L 100.0100, L501.9520, L506.0400, L500.4050, L501.71394 #### [facility] [address] [place], [address] Platelets (Bld) [#/Vol] 314 10*3/uL Normal 150-450 [facility] Comment on above: Order Comment: ADD O NTO THG 1 G Performed By: #### L 100.0100, L501.9520, L506.0400, L500.4050, L501.28015 #### [facility] [address] [place], [address] RBC (Bld) [#/Vol] 4.40 10*6/uL Normal 4.2-5.4 [facility] Comment on above: Order Comment: ADD O NTO THG 1 G Performed By: #### L 100.0100, L501.9520, L506.0400, L500.4050, L501.12777 #### [facility] [address] [place], [address] RDW SD 45.1 fl High 35.1-43.9 [facility] Comment on above: Order Comment: ADD O NTO THG 1 G Performed By: #### L 100.0100, L501.9520, L506.0400, L500.4050, L501.86374 #### [facility] [address] [place], [address] WBC (Bld) [#/Vol] 8.0 10*3/uL Normal 4.4-11.0 [facility] Comment on above: Order Comment: ADD O NTO THG 1 G Performed By: #### L 100.0100, L501.9520, L506.0400, L500.4050, L501.36486 #### [facility] [address] [place], [address] Thyroid Stim Hormone (TSH)on 06-02-2025 TSH 2.060 uIU/mL Normal 0.300-4.200 [facility] Comment on above: Order Comment: ADD O NTO THG6 6 AMARI THG7 4 C Performed By: #### L 100.0100, L501.9520, L506.0400, L500.4050, L501.72164 #### [facility] [address] [place], [address] Hemoglobin A1con 06-01-2025 HbA1c (Bld) [Mass fraction] 5.9 % High <=5.6 [facility] Comment on above: Result Comment: Norm al < 5.7 % Prediabetic 5.7 - 6.4 % Diabetic >or= 6.5 % Please note range changes. Performed By: #### L 506.1001, L3600.3400, L501.9985 #### [facility] [address] [place], [address] Vitamin D,25 Hydroxyon 06-01 Vitamin D 25-OH 50.5 ng/mL Normal 30-100 [facility] Comment on above: Result Comment: Riddhi min D Status Deficiency: <20 ng/mL (50nmol/L) Insufficiency: 20-30 ng/mL (50-75 nmol/L) Sufficiency: 30-100 ng/mL (75-250 nmol/L) Toxicity: >100 ng/mL (>250 nmol/L) Performed By: #### L 506.1001, L3600.3400, L501.9985 #### [facility] [address] [place], [address] CNOVon 04-19-2025 CNOV Office Visit (NICOLE) JENNYFIDELIA Whitaker ([id number]) 1970 F Date Time Provider Department 04/19/25 11:15 AM EDUARDO BANKS During your visit today, we recorded the following information about you: Temperature Pulse Respiration Blood pressure 98.6 degrees 80/minute 18/minute 134/84 Weight 100.2 kg Eduardo Banks MD, PhD 04/19/2025 11:41 AM Signed [facility] Patient Name: Fidelia Alvarado Today's Date: April 19, 2025 SUBJECTIVE Patient presents with: Head Congestion: Cough, chest congestion, BROWN, ST, sinus drainage x3 weeks History of Present Illness: Fidelia Alvarado is a 54-year-old female, with a history of allergies, presenting with URI symptoms. Fidelia reports URI symptoms that began 3 weeks ago and have not improved. She endorses tactile fevers, cephalalgia, sinus pressure in the cheeks and forehead, nasal congestion with minimal discharge, and a dry, non-productive cough. She also reports otic pressure, pharyngitis, and post-nasal drip. She denies eye pain, pressure, or discharge. She has not been around anyone with strep throat or children. She has not experienced wheezing, dyspnea, cyanosis, chest pain, palpitations, nausea, emesis, diarrhea, constipation, abdominal pain, urinary symptoms, rashes, or lesions. She is a smoker and uses an inhaler for allergies, particularly when around cats. She is also on Singulair and Xyzal for allergies. She denies any lung conditions such as asthma or reactive airway disease. She has no history of diabetes, CKD, or cardiac conditions. She has a known allergy to codeine. She has not taken any antibiotics or oral steroids in the last 30 days. She is menopausal, with her last menstrual period being 6 years ago, and has had an ablation. She denies any possibility of . She reports significant fatigue, stating she slept from 1100 to 0530 the next day with only two bathroom breaks. She also notes that being outside worsens her symptoms. She is concerned about the possibility of pneumonia, as her nurse at work mentioned it is going around. She has a history of yeast infections with certain antibiotics and requests Diflucan, which she has tolerated well in the past. She has already taken off work today and plans to take tomorrow off as well. She has a vacation day on Thursday and was supposed to go away for the weekend, but is unsure if she will be able to make it. Review of Systems: Constitutional: (+) fever, (+) fatigue Head: (+) headache Eyes: (+) eye pressure Ears/Nose/Mouth/Throat : (+) sinus pressure, (+) nasal congestion, (+) nasal discharge, (+) ear pressure, (+) postnasal drip, (+) sore throat, (-) ear discharge Respiratory: (+) dry cough, (-) productive cough, (-) wheezing, (-) shortness of breath Gastrointestinal: (-) nausea, (-) vomiting, (-) diarrhea, (-) constipation, (-) abdominal pain Genitourinary: (-) dysuria Skin: (-) rash, (-) skin lesion ALLERGIES Allergen Reactions Codeine GI Upset OBJECTIVE BP 134/84 Pulse 80 Temp 37 ?C (98.6 ?F) Resp 18 Wt 100.2 kg (220 lb 14.4 oz) LMP 05/29/2018 SpO2 99% BMI 40.40 kg/m? Physical Exam: Gen: Patient is pleasant, alert, mildly ill-appearing, but nontoxic in no acute distress Head: Normocephalic, atraumatic Eyes: Sclera anicteric, no scleral injection or discharge ENT: Moderate yellow-green nasal discharge, no pharyngeal erythema or exudate, bilateral ears: External ear canal and TM visualized with no sign of infection, bilateral clear effusions, TM appears in neutral position, and intact, no tenderness to bilateral mastoids, pain to palpation over bilateral maxillary and frontal sinuses Neck: Supple, submandibular lymphadenopathy CV: Regular rate and rhythm Pulm: Coughing throughout exam dry hacking, coarse air sounds with good air movement, no definitive crackles wheezing or rhonchi, nonlabored breathing, no use of accessory muscles. Abd: Soft, non-tender, non-distended. Neuro: No involuntary movements. Extrem: No cyanosis, clubbing, or edema Skin: Warm, dry, no visible rashes ASSESSMENT AND PLAN 1. Bronchitis (J40) Bacterial sinusitis (J32.9) Symptoms consistent with bronchitis and bacterial sinusitis, including sinus pressure, nasal congestion, ear pressure, post-nasal drip, and a dry, non-productive cough. Physical exam reveals fluid in the ears and enlarged cervical lymph nodes. Patient is a smoker, increasing risk for respiratory infections. -Currently no red flags, but symptomatic and a mild reactive airway flare - Discussed risks and benefits of watchful waiting versus treatment. Discussed risks and benefits of oral steroids and antibiotics. Discussed single versus dual antibiotic coverage. Through shared decision making, patient verbalized understanding is agreeable to plan. - Initiated Augmentin twice daily for (more content not included)... [facility] (UCWSTR ) FIDELIA ALVARADO ([id number]) 1970 F Date Time Provider Department 01/05/25 9:30 AM ADITYA BARILLAS [facility] During your visit today, we recorded the following information about you: Temperature Pulse Respiration Blood pressure 97.9 degrees 90/minute 18/minute 150/85 Weight 98.8 kg Aditya Barillas MD 01/05/2025 9:57 AM Signed [facility] Subjective Fidelia Alvarado is a 54 year old female. Patient presents with: Head Congestion: Has chronic allergies, now worsening with BROWN, ST, sinus drainage, cough x4 days Patient with chronic environmental allergies presents with 4 days significant increase in sinus pressure and drainage. She has nasal congestion, rhinorrhea, postnasal drainage, headache, sinus pain, and some cough from drainage. She denies fever, chills, sore throat, shortness of breath, or wheezing. She has taken Advil cold and sinus medicine. She takes routine Claritin and another prescribed allergy medicine as well as desensitization shots. Review of Systems Objective BP 150/85 Pulse 90 Temp 36.6 ?C (97.9 ?F) Resp 18 Wt 98.8 kg (217 lb 13 oz) LMP 05/29/2018 SpO2 98% BMI 39.84 kg/m? Physical Exam Constitutional: General: She is not in acute distress. HENT: Right Ear: Tympanic membrane and ear canal normal. Left Ear: Tympanic membrane and ear canal normal. Nose: Congestion present. Right Sinus: Maxillary sinus tenderness and frontal sinus tenderness present. Left Sinus: Maxillary sinus tenderness and frontal sinus tenderness present. Mouth/Throat: Mouth: Mucous membranes are moist. Pharynx: Posterior oropharyngeal erythema present. No oropharyngeal exudate. Eyes: Extraocular Movements: Extraocular movements intact. Conjunctiva/sclera: Conjunctivae normal. Pupils: Pupils are equal, round, and reactive to light. Cardiovascular: Rate and Rhythm: Normal rate and regular rhythm. Heart sounds: No murmur heard. Pulmonary: Effort: No respiratory distress. Breath sounds: No wheezing, rhonchi or rales. Musculoskeletal: Cervical back: Neck supple. Lymphadenopathy: Cervical: No cervical adenopathy. Neurological: Mental Status: She is alert. {ASSESSMENT/PLAN: 1. Acute non-recurrent sinusitis, unspecified location - ICD9: 461.9, ICD10: J01.90 Symptoms consistent with secondary bacterial sinusitis on underlying environmental/seasonal allergies. New acute viral sinusitis cannot be ruled out. - AMOXICILLIN 875 MG-POTASSIUM CLAVULANATE 125 MG TABLET Continue allergy and cold medicine. She has not had fever and is approaching the end of the typical contagious phase for viral illnesses. Aditya Barillas MD Differential Diagnoses - Bacterial sinusitis is more likely for the following reason(s): suggested by HANDP - Viral sinusitis is more likely for the following reason(s): suggested by [facility] Procedures Allergies As of Date: 01/05/2025 Noted Allergy Reaction CODEINE 10/18/2005 8 - GI Upset Date Reviewed: 01/05/2025 Reviewed by: Camilla Aponte MA - Fully Assessed Reason for Visit: Head Congestion [234] Cmt: Has chronic allergies, now worsening with BROWN, ST, sinus drainage, cough x4 days Primary Visit Diagnosis:Acute non-recurrent sinusitis, unspecified location [J01.90] Order(s):amoxicillin-c lavulanate potassium (AUGMENTIN) 875-125 mg per tabletTake 1 tablet by mouth two times a day for 5 days.Disp: 10 tabletRfl: 0 Prescriptions as of 01/05/2025 - amoxicillin-clavulanat e potassium (AUGMENTIN) 875-125 mg per tablet Take 1 tablet by mouth two times a day for 5 days. - busPIRone (BUSPAR) 5 mg tablet Take 5 mg by mouth twice daily. - gabapentin (NEURONTIN) 100 mg capsule take 1-3 capsules by mouth three times a day if needed - citalopram (CELEXA) 40 mg tablet Take 40 mg by mouth daily at bedtime. - liothyronine (CYTOMEL) 5 mcg tablet take 1 tablet by mouth daily ON AN EMPTY STOMACH - rizatriptan (MAXALT) 10 mg tablet take 1 tablet by mouth AT ONSET OF MIGRAINE may repeat in 2 hours... (REFER TO PRESCRIPTION NOTES). - fluticasone (FLONASE) 50 mcg/actuation nasal spray Use 2 Sprays in each nostril once daily. Rinse mouth after use. - buPROPion XL (WELLBUTRIN XL) 300 mg 24 hr tablet Take 1 tablet by mouth once daily. - Levocetirizine 5 mg tablet Take 1 tablet by mouth daily at bedtime. - ascorbic acid, vitamin C, (VITAMIN C) 500 mg tablet Take by mouth. - cyanocobalamin, vitamin B-12, (VITAMIN B-12 ORAL) Take by mouth once daily. - cholecalciferol, vitamin D3, (VITAMIN D3 ORAL) Take by mouth once daily. - montelukast (SINGULAIR) 10 mg tablet Take 10 mg by mouth daily at bedtime. - VITAMIN B COMPLEX ORAL Take by mouth once daily. - COMPOUNDED PRESCRIPTION Allergy Injections: Every Four Weeks - famotidine(PEPCID 20 MG TAB) one tablet daily - DIGESTIVE ENZYMES CAP two tabs daily (more content not included)... Normal [facility] CBC W/Diff, Automatedon 02-0 7 Absolute Lymph 2.09 X10 3/uL Normal 0.83-4.51 [facility] Comment on above: Performed By: #### L 100.0100, L501.9520, L506.0400, L500.4050, L501.24177 #### [facility] [address] [place], [address] Absolute Neut 6.0 X10 3/uL Normal 2.0-7.7 [facility] Comment on above: Performed By: #### L 100.0100, L501.9520, L506.0400, L500.4050, L501.98013 #### [facility] [address] [place], [address] Basophils/100 WBC (Bld) 0.8 % Normal 0-1 [facility] Comment on above: Performed By: #### L 100.0100, L501.9520, L506.0400, L500.4050, L501.30027 #### [facility] [address] [place], [address] Eosinophils/100 WBC (Bld) 3.4 % Normal 0-5 [facility] Comment on above: Performed By: #### L 100.0100, L501.9520, L506.0400, L500.4050, L501.92763 #### [facility] [address] [place], [address] Erythrocyte distribution width (RBC) [Ratio] 13.1 % Normal 11.6-14.6 [facility] Comment on above: Performed By: #### L 100.0100, L501.9520, L506.0400, L500.4050, L501.25656 #### [facility] [address] [place], [address] Hematocrit (Bld) [Volume fraction] 43.0 % Normal 37-47 [facility] Comment on above: Performed By: #### L 100.0100, L501.9520, L506.0400, L500.4050, L501.26144 #### [facility] [address] [place], [address] Hemoglobin (Bld) [Mass/Vol] 13.7 g/dL Normal 12.0-15.0 [facility] Comment on above: Performed By: #### L 100.0100, L501.9520, L506.0400, L500.4050, L501.62668 #### [facility] [address] [place], [address] IG% 0.400 Normal 0.0-0.9 [facility] Comment on above: Result Comment: IG% - Immature Granulocytes (promyelocytes, myelocytes and metamyelocytes) > 1% indicates that a LEFT SHIFT is Present. Performed By: #### L 100.0100, L501.9520, L506.0400, L500.4050, L501.09802 #### [facility] [address] [place], [address] Lymphocytes/100 WBC (Bld) 23.0 % Normal 19-41 [facility] Comment on above: Performed By: #### L 100.0100, L501.9520, L506.0400, L500.4050, L501.41226 #### [facility] [address] [place], [address] MCH (RBC) [Entitic mass] 29.5 pg Normal 27.0-32.0 [facility] Comment on above: Performed By: #### L 100.0100, L501.9520, L506.0400, L500.4050, L501.17387 #### [facility] [address] [place], [address] MCHC (RBC) [Mass/Vol] 31.9 g/dL Low 32-36 [facility] Comment on above: Performed By: #### L 100.0100, L501.9520, L506.0400, L500.4050, L501.67750 #### [facility] [address] [place], [address] MCV (RBC) [Entitic vol] 92.7 fL Normal 81-99 [facility] Comment on above: Performed By: #### L 100.0100, L501.9520, L506.0400, L500.4050, L501.37910 #### [facility] [address] [place], [address] Monocytes/100 WBC (Bld) 6.3 % Normal 0-10 [facility] Comment on above: Performed By: #### L 100.0100, L501.9520, L506.0400, L500.4050, L501.50021 #### [facility] [address] [place], [address] Neutrophils/100 WBC (Bld) 66.1 % Normal 47-70 [facility] Comment on above: Performed By: #### L 100.0100, L501.9520, L506.0400, L500.4050, L501.08609 #### [facility] [address] [place], [address] Nucleated RBC (Bld) [#/Vol] 0 10*3/uL Normal 0-5 [facility] Comment on above: Performed By: #### L 100.0100, L501.9520, L506.0400, L500.4050, L501.17067 #### [facility] [address] [place], [address] Platelet mean volume (Bld) [Entitic vol] 11.1 fL Normal 6.2-12.0 [facility] Comment on above: Performed By: #### L 100.0100, L501.9520, L506.0400, L500.4050, L501.05648 #### [facility] [address] [place], [address] Platelets (Bld) [#/Vol] 334 10*3/uL Normal 150-450 [facility] Comment on above: Performed By: #### L 100.0100, L501.9520, L506.0400, L500.4050, L501.02628 #### [facility] [address] [place], [address] RBC (Bld) [#/Vol] 4.64 10*6/uL Normal 4.2-5.4 [facility] Comment on above: Performed By: #### L 100.0100, L501.9520, L506.0400, L500.4050, L501.46074 #### [facility] [address] [place], [address] RDW SD 44.5 fl High 35.1-43.9 [facility] Comment on above: Performed By: #### L 100.0100, L501.9520, L506.0400, L500.4050, L501.26933 #### [facility] [address] [place], [address] WBC (Bld) [#/Vol] 9.1 10*3/uL Normal 4.4-11.0 [facility] Comment on above: Performed By: #### L 100.0100, L501.9520, L506.0400, L500.4050, L501.72171 #### [facility] [address] [place], [address] Comprehensive Metabolic Prof ilon 10-21-2024 Albumin [Mass/Vol] 3.7 g/dL Normal 3.2-5.0 [facility] Comment on above: Performed By: #### L 100.0100, L501.9520, L506.0400, L500.4050, L501.89229 #### [facility] [address] [place], [address] Albumin/Globulin [Mass ratio] 1.0 {ratio} Normal 0.9-2.4 [facility] Comment on above: Performed By: #### L 100.0100, L501.9520, L506.0400, L500.4050, L501.53988 #### [facility] [address] [place], [address] ALK P 94 U/L Normal 45-117 [facility] Comment on above: Performed By: #### L 100.0100, L501.9520, L506.0400, L500.4050, L501.15465 #### [facility] [address] [place], [address] ALT [Catalytic activity/Vol] 54 U/L Normal 13-56 [facility] Comment on above: Performed By: #### L 100.0100, L501.9520, L506.0400, L500.4050, L501.95741 #### [facility] [address] [place], [address] AST [Catalytic activity/Vol] 26 U/L Normal 15-37 [facility] Comment on above: Performed By: #### L 100.0100, L501.9520, L506.0400, L500.4050, L501.64800 #### [facility] [address] [place], [address] Bilirubin [Mass/Vol] 0.40 mg/dL Normal 0.20-1.00 [facility] Comment on above: Result Comment: For patients on eltrombopag therapy, use of Dimension [place] TBIL is not recommended. Performed By: #### L 100.0100, L501.9520, L506.0400, L500.4050, L501.98723 #### [facility] [address] [place], [address] BUN/CRE 13.4 RATIO Normal 10-20 [facility] Comment on above: Performed By: #### L 100.0100, L501.9520, L506.0400, L500.4050, L501.21327 #### [facility] [address] [place], [address] CA,Total 9.0 mg/dL Normal 8.5-10.1 [facility] Comment on above: Performed By: #### L 100.0100, L501.9520, L506.0400, L500.4050, L501.44525 #### [facility] [address] [place], [address] Chloride [Moles/Vol] 104 mmol/L Normal 98-107 [facility] Comment on above: Performed By: #### L 100.0100, L501.9520, L506.0400, L500.4050, L501.42097 #### [facility] [address] [place], [address] CO2 [Moles/Vol] 27.0 mmol/L Normal 21.0-32.0 [facility] Comment on above: Performed By: #### L 100.0100, L501.9520, L506.0400, L500.4050, L501.94317 #### [facility] [address] [place], [address] Creatinine [Mass/Vol] 0.90 mg/dL Normal 0.55-1.02 [facility] Comment on above: Result Comment: The validity of the calculated GFR GFRAA in patients over 70 years has not been determined. Clinical correlation is essential. Performed By: #### L 100.0100, L501.9520, L506.0400, L500.4050, L501.26958 #### [facility] [address] [place], [address] EST GFR - AA 84 mL/min Normal >60 [facility] Comment on above: Result Comment: Afri can Guatemalan GFR Calc Performed By: #### L 100.0100, L501.9520, L506.0400, L500.4050, L501.27484 #### [facility] [address] [place], [address] GAP 7 Normal 5-15 [facility] Comment on above: Performed By: #### L 100.0100, L501.9520, L506.0400, L500.4050, L501.99537 #### [facility] [address] [place], [address] GFR/1.73 sq M.predicted among non-blacks MDRD (S/P/Bld) [Vol rate/Area] 70 mL/min/{1.73_m2} Normal >60 [facility] Comment on above: Result Comment: Non- GFR Calc Performed By: #### L 100.0100, L501.9520, L506.0400, L500.4050, L501.73316 #### [facility] [address] [place], [address] Globulin (S) [Mass/Vol] 3.7 g/dL Normal 2.2-4.2 [facility] Comment on above: Performed By: #### L 100.0100, L501.9520, L506.0400, L500.4050, L501.89020 #### [facility] [address] [place], [address] Glucose [Mass/Vol] 107 mg/dL High 74-106 [facility] Comment on above: Result Comment: Fast ing Glucose result from 100 to 125 mg/dL suggests IMPAIRED HOMEOSTASIS per A.D.A. criteria. Performed By: #### L 100.0100, L501.9520, L506.0400, L500.4050, L501.36562 #### [facility] [address] [place], [address] Potassium [Moles/Vol] 4.3 mmol/L Normal 3.5-5.1 [facility] Comment on above: Performed By: #### L 100.0100, L501.9520, L506.0400, L500.4050, L501.62294 #### [facility] [address] [place], [address] Sodium [Moles/Vol] 138 mmol/L Normal 136-145 [facility] Comment on above: Performed By: #### L 100.0100, L501.9520, L506.0400, L500.4050, L501.06018 #### [facility] [address] [place], [address] T PROT 7.4 g/dL Normal 6.4-8.2 [facility] Comment on above: Performed By: #### L 100.0100, L501.9520, L506.0400, L500.4050, L501.12205 #### [facility] [address] [place], [address] Urea nitrogen [Mass/Vol] 12 mg/dL Normal 7-18 [facility] Comment on above: Performed By: #### L 100.0100, L501.9520, L506.0400, L500.4050, L501.57194 #### [facility] [address] [place], [address] Free T3on 10-21-2024 Free T3 [Mass/Vol] 3.1 pg/mL Normal 2.18-3.98 [facility] Comment on above: Performed By: #### L 100.0100, L501.9520, L506.0400, L500.4050, L501.17581 #### [facility] [address] [place], [address] T4 Free Directon 10-21-2024 T4 FREE DIRECT 0.86 ng/dL Normal 0.76-1.46 [facility] Comment on above: Performed By: #### L 100.0100, L501.9520, L506.0400, L500.4050, L501.49516 #### [facility] [address] [place], [address] Thyroid Stim Hormone (TSH)on 10-21-2024 TSH 1.850 uIU/mL Normal 0.358-3.740 [facility] Comment on above: Performed By: #### L 100.0100, L501.9520, L506.0400, L500.4050, L501.06211 #### [facility] [address] [place], [address] CNOVon 06-08-2024 CNOV Office Visit (UCWSTR ) FIDELIA ALVARADO ([id number]) 1970 F Date Time Provider Department 06/08/24 6:30 PM DEB BIRCH [facility] During your visit today, we recorded the following information about you: Temperature Pulse Respiration Blood pressure 97.6 degrees 74/minute 16/minute 122/78 Weight 97 kg Deb Birch APRN.[facility] 06/08/2024 6:41 PM Signed Subjective Sinus Problem Associated symptoms include congestion, coughing, headaches and a sore throat. Pertinent negatives include no chest pain, chills or fever. Fidelia Alvarado is a 53 year old female who presents with sinus congestion, sore throat, headache x 3 weeks. States she thought it was a normal cold and has been taking OTC medication but symptoms are not improving. Now she is having sinus pressure and increased post nasal drainage. No fever. Review of Systems Constitutional: Negative for chills and fever. HENT: Positive for congestion, sinus pain and sore throat. Negative for ear pain. Respiratory: Positive for cough. Negative for sputum production. Cardiovascular: Negative for chest pain. Neurological: Positive for headaches. BP 122/78 Pulse 74 Temp 36.4 ?C (97.6 ?F) (Tympanic) Resp 16 Wt 97 kg (213 lb 12.8 oz) LMP 05/29/2018 SpO2 97% BMI 39.10 kg/m? PAST MEDICAL HISTORY Diagnosis Date Acute gastritis without mention of hemorrhage Chronic depressive personality disorder Depressive disorder, not elsewhere classified 10/22/2005 Esophageal reflux Headache, migraine Other forms of migraine Seasonal allergies PAST SURGICAL HISTORY Procedure Laterality Date ADENOIDECTOMY PRIMARY Adenoidectomy DELIVERY ONLY 1993 EGD TRANSORAL BIOPSY SINGLE/MULTIPLE 12/30/05 PAST SURGICAL HISTORY OF 05/2018 ENDOMETRIAL ABLATION PAST SURGICAL HISTORY OF uterine ablation TONSILLECTOMY PRIMARY/SECONDARY Tonsillectomy ALLERGIES Codeine MEDICATIONS busPIRone (BUSPAR) 5 mg tablet Take 5 mg by mouth twice daily. gabapentin (NEURONTIN) 100 mg capsule take 1-3 capsules by mouth three times a day if needed citalopram (CELEXA) 40 mg tablet Take 40 mg by mouth daily at bedtime. liothyronine (CYTOMEL) 5 mcg tablet take 1 tablet by mouth daily ON AN EMPTY STOMACH rizatriptan (MAXALT) 10 mg tablet take 1 tablet by mouth AT ONSET OF MIGRAINE may repeat in 2 hours... (REFER TO PRESCRIPTION NOTES). fluticasone (FLONASE) 50 mcg/actuation nasal spray Use 2 Sprays in each nostril once daily. Rinse mouth after use. buPROPion XL (WELLBUTRIN XL) 300 mg 24 hr tablet Take 1 tablet by mouth once daily. Levocetirizine 5 mg tablet Take 1 tablet by mouth daily at bedtime. ascorbic acid, vitamin C, (VITAMIN C) 500 mg tablet Take by mouth. cyanocobalamin, vitamin B-12, (VITAMIN B-12 ORAL) Take by mouth once daily. cholecalciferol, vitamin D3, (VITAMIN D3 ORAL) Take by mouth once daily. montelukast (SINGULAIR) 10 mg tablet Take 10 mg by mouth daily at bedtime. VITAMIN B COMPLEX ORAL Take by mouth once daily. COMPOUNDED PRESCRIPTION Allergy Injections: Every Four Weeks famotidine(PEPCID 20 MG TAB) one tablet daily DIGESTIVE ENZYMES CAP two tabs daily MULTIVITAMIN TAB Take one(1) tablet daily. amoxicillin-clavulanat e potassium (AUGMENTIN) 875-125 mg per tablet Take 1 tablet by mouth two times a day for 7 days. FAMILY HISTORY Problem Relation Age of Onset Diabetes Father Diabetes Maternal Grandmother Diabetes Paternal Grandmother Prostate Cancer Paternal Grandfather Breast Cancer Other gmaunt Breast Cancer Other gmaunt Cancer Other uterine gmaunt Arthritis Other other (Congestive heart failure) Other Hypertension Other Stroke Other Social History Tobacco Use Smoking status: Every Day Current packs/day: 1.00 Average packs/day: 1 pack/day for 16.0 years (16.0 ttl pk-yrs) Types: Cigarettes Smokeless tobacco: Never Tobacco comments: Smokes approx 15 cigarettes per day - 01/30/23 Substance Use Topics Alcohol use: No Drug use: No Objective Physical Exam Vitals and nursing note reviewed. Constitutional: General: She is not in acute distress. Appearance: Normal appearance. She is not ill-appearing. HENT: Right Ear: Tympanic membrane, ear canal and external ear normal. Left Ear: Tympanic membrane, ear canal and external ear normal. Nose: Nasal tenderness, mucosal edema, congestion and rhinorrhea present. Mouth/Throat: Pharynx: Uvula midline. No oropharyngeal exudate or posterior oropharyngeal erythema. Cardiovascular: Rate and Rhythm: Normal rate and regular rhythm. Heart sounds: Normal heart sounds. Pulmonary: Effort: Pulmonary effort is normal. No respiratory distress. Breath sounds: Normal breath sounds. No wheezing or rales. Musculoskeletal: Cervical back: Neck supple. Lymphadenopathy: Cervical: No cervical adenopathy. Skin: General: Skin is warm and dry. F (more content not included)... Normal [facility] T3 FREE [facility] 12-08-2023 Free T3 [Mass/Vol] 3.2 pg/mL 2.3 - 4.1 pg/mL [facility] T4 FREE/FREE THYROXon 2023 Free T4 [Mass/Vol] 1.0 ng/dL 0.9 - 1.7 ng/dL [facility] TSH Don 12-08-2023 TSH Qn 4.530 m[IU]/L High 0.270 - 4.200 mIU/L [facility] CNCOon 03-09-2019 CNCO Letter Text Normal [facility] CNOVon 03-09-2019 CNOV Office Visit (LUCIEN ) FIDELIA ALVARADO ([id number]) 1970 F Date Time Provider Department 03/09/19 12:00 PM CARMELO ALBERT During your visit today, we recorded the following information about you: Pulse Respiration Blood pressure 68/minute 18/minute 106/70 Carmelo Albert MD 03/09/2019 12:22 PM Signed NEUROSURGERY FOLLOW UP OFFICE NOTE Carmelo Albert MD Date of visit: March 07, 2019 Patient Name: Ms.Lysa Julianne Alvarado Date of : 1970 Current Age: [age] year old Sex: female MRN/E# [id number] Last Office Visit: 11/26/2018 Chief Complaint: No chief complaint on file. SUBJECTIVE: Ms. Alvarado presents to the office today for a routine follow up visit with imaging (xrays cervical spine) following a C5/6 ACDF on 10/05/2018. She was last seen on 11/24/2018 and noted near resolution of her pre op symptoms. Today she states she continues to do well with minimal neck pain and no arm symptoms. She is very pleased with her surgical outcome and has no new concerns today. PREVIOUS CONSERVATIVE TREATMENTS: Physical therapy PREVIOUS SURGERY: SURGERY #1: C5/6 ACDF on 10/05/2018 PAIN EVALUATION No data found. PAST MEDICAL HISTORY Diagnosis Date - Acute gastritis without mention of hemorrhage - Chronic depressive personality disorder - Depressive disorder, not elsewhere classified 10/22/2005 - Esophageal reflux - Headache, migraine - Other forms of migraine - Seasonal allergies PAST SURGICAL HISTORY Procedure Laterality Date - DELIVERY ONLY 1993 - EGD W/O [facility] SPECIMEN W/BX 12/30/05 - PAST SURGICAL HISTORY OF 05/2018 ENDOMETRIAL ABLATION - PAST SURGICAL HISTORY OF uterine ablation - REMOVAL ADENOIDS,PRIMARY,<12 Y/O Adenoidectomy - REMOVAL OF TONSILS,<12 Y/O Tonsillectomy FAMILY HISTORY Problem Relation Age of Onset - Diabetes Father - Diabetes Maternal Grandmother - Diabetes Paternal Grandmother - Prostate Cancer Paternal Grandfather - Breast Cancer Other gmaunt - Breast Cancer Other gmaunt - Cancer Other uterine gmaunt - Arthritis Other - other (Congestive heart failure) Other - Hypertension Other - Stroke Other ALLERGIES Allergen Reactions - Codeine GI Upset Other reaction(s): AOF, Nausea Current Outpatient Medications Medication Sig Dispense Refill - buPROPion XL (WELLBUTRIN XL) 300 mg 24 hr tablet Take 1 tablet by mouth once daily. - Levocetirizine 5 mg tablet Take 1 tablet by mouth daily at bedtime. - HYDROcodone-acetaminop hen (NORCO) 5-325 mg per tablet Take 1 tablet by mouth every 6 hours as needed. - topiramate (TOPAMAX) 100 mg tablet Take 100 mg by mouth once daily. - ascorbic acid, vitamin C, (VITAMIN C) 500 mg tablet Take by mouth. - cyclobenzaprine (FLEXERIL) 10 mg tablet Take 1 tablet by mouth three times daily as needed for Muscle Spasm. 30 tablet 0 - cyanocobalamin, vitamin B-12, (VITAMIN B-12 ORAL) Take by mouth once daily. - cholecalciferol, vitamin D3, (VITAMIN D3 ORAL) Take by mouth once daily. - levocetirizine dihydrochloride (LEVOCETIRIZINE ORAL) Take 5 mg by mouth once daily. - montelukast (SINGULAIR) 10 mg tablet Take 10 mg by mouth daily at bedtime. - VITAMIN B COMPLEX ORAL Take by mouth once daily. - citalopram (CELEXA) 20 mg tablet Take by mouth once daily. - BUPROPION HCL ORAL Take 300 mg by mouth once daily. - MAGNESIUM ORAL Take 400 mg by mouth every morning. - Magnesium 250 mg tab Take 250 mg by mouth daily at bedtime. - eletriptan (RELPAX) 40 mg tablet Take 40 mg by mouth as needed. may repeat in 2 hours if necessary - zonisamide (ZONEGRAN) 100 mg capsule Take 100 mg by mouth twice daily. - topiramate 200 mg tablet Take 100 mg by mouth twice daily. - desvenlafaxine (PRISTIQ) 50 mg ORAL 24 hr tablet Take 50 mg by mouth once daily. - COMPOUNDED PRESCRIPTION Allergy Injections: Every Four Weeks 0 - famotidine(PEPCID 20 MG TAB) one tablet daily 0 - DIGESTIVE ENZYMES CAP two tabs daily 0 - MULTIVITAMIN TAB Take one(1) tablet daily. 0 No current facility-administered medications for this visit. REVIEW OF SYSTEMS Review of Systems Constitutional: Negative for chills, diaphoresis and fever. HENT: Negative for congestion. Eyes: Negative for discharge. Respiratory: Negative for cough, shortness of breath and wheezing. Cardiovascular: Negative for chest pain, palpitations and leg swelling. Gastrointestinal: Negative for constipation, diarrhea and nausea. Endocrine: Negative for cold intolerance and heat intolerance. Genitourinary: Negative for difficulty urinating, frequency and urgency. Musculoskeletal: Positive for neck pain. Negative for back pain and gait problem. Skin: Negative for rash and wound. Allergic/Immunologic: Positive for environmental allergies. Negative for food allergies. Neurological: Negative for dizziness, weakness and numbness. Hematological: Does not bruise/bleed easily. Psychiatric/Behavioral : Negative for agitation. The patient is nervous/anxious. OBJECTIVE: BP 106/70 Pulse 68 Resp 18 Physical Exam Constitutional: She is oriented to person, place, and time and well-developed, well-nourished, and in no distress. HENT: Head: Normocephalic and atraumatic. Right Ear: External ear normal. Left Ear: External ear normal. Eyes: Conjunctivae are normal. Neck: Normal range of motion. Pulmonary/Chest: Effort normal. Musculoskeletal: Normal range of motion. Neurological: She is alert and oriented to person, place, and time. Gait normal. Skin: Skin is warm and dry. Psychiatric: Mood and affect normal. Neurological Exam Mental Status Alert. Gait Normal gait. Motor: Right Upper: Left Upper: Deltoid: 5 Deltoid: 5 Triceps: 5 Triceps: 5 Biceps: 5 Biceps: 5 Motor Tone: Right Upper: Normal tone Left Upper: Normal tone Right Lower: Normal tone Left Lower: Normal tone Sensory: Light Touch: WNL Pain/Temperature: WNL Other: Gait: normal, no assistive device Data Review IMAGING STUDIES: X-Ray performed on 03/09/2019. Findings were noted as demonstrating no sign of hardware complication. She appears to be developing a skeletally mature fusion. Personal review of medical records: I reviewed with the patient, history, physical exam, the images and the chart. 1. Cervical disc disorder with radiculopathy She is doing very well postoperatively and is reporting significant improvement. I told her her x-rays look satisfactory. She'll return see me in 6 months with new x-rays. - XR CERV GENERAL 2V AP/LAT; Future Carmelo Albert MD Referring Provider: CARMELO ALBERT [[id number]] Allergies As of Date: 03/09/2019 Noted Allergy Reaction CODEINE 10/18/2005 8 - GI Upset Comments: Other reaction(s): AOF, Nausea Date Reviewed: 03/09/2019 Reviewed by: Carmelo Albert - Fully Assessed Primary Visit Diagnosis:Cervical disc disorder with radiculopathy [M50.10] Order(s):XR CERV GENERAL 2V AP/LAT [[id number]] Order #: [id number] FUTURE Prescriptions as of 03/09/2019 Sig: BUPROPION XL 300 MG 24 HR TAB Take 1 tablet by mouth once d* LEVOCETIRIZINE 5 MG TABLET Take 1 tablet by mouth daily * HYDROCODONE 5 MG-ACETAMINOPHE* Take 1 tablet by mouth every * TOPIRAMATE 100 MG TABLET Take 100 mg by mouth once arturo* ASCORBIC ACID (VITAMIN C) 500* Take by mouth. CYCLOBENZAPRINE 10 MG TABLET Take 1 tablet by mouth three * VITAMIN B-12 ORAL Take by mouth once daily. VITAMIN D3 ORAL Take by mouth once daily. LEVOCETIRIZINE ORAL Take 5 mg by mouth once daily. MONTELUKAST 10 MG TABLET Take 10 mg by mouth daily at * VITAMIN B COMPLEX ORAL Take by mouth once daily. CITALOPRAM 20 MG TABLET Take by mouth once daily. BUPROPION HCL ORAL Take 300 mg by mouth once arturo* MAGNESIUM ORAL Take 400 mg by mouth every mo* MAGNESIUM 250 MG TABLET Take 250 mg by mouth daily at* ELETRIPTAN 40 MG TABLET Take 40 mg by mouth as needed* ZONISAMIDE 100 MG CAPSULE Take 100 mg by mouth twice da* TOPIRAMATE 200 MG TABLET Take 100 mg by mouth twice da* * DESVENLAFAXINE SUCCINATE ER 5* Take 50 mg by mouth once hardik* * COMPOUNDED PRESCRIPTION Allergy Injections: Every Fou* * PEPCID 20 MG TABLET one tablet daily * DIGESTIVE ENZYMES CAPSULE two tabs daily * MULTIVITAMIN TABLET Take one(1) tablet daily. Problem List As Of Date 03/09/2019 Noted Resolved 1.1 MIGRAINE W/O AURA W/ INTRACTABLE [346.11] [*INVALID FOR* DEPRESSIVE DISORDER NEC [F32.9] INVALID FOR* Syncope and collapse [R55] INVALID FOR*06/17/2016 ESOPHAGEAL REFLUX [K21.9] INVALID FOR* ACUTE GASTRITIS W/O HEMORRHAGE [K29.00] INVALID FOR* Cervical stenosis of spine [M48.02] INVALID FOR* Nicotine use disorder, F17.2 [F17.200] INVALID FOR* Disposition: Return in about 6 months (around 09/08/2019). Follow-up and Disposition History Recorded Letter Text Encounter Status:Closed by CARMELO ALBERT MD on 03/09/19 [facility] PROGRESSon 03-09-2019 Protein mass conc HNO ID: [id number] Author: Carmelo Albert Service: ? Author Type: Physician Type: Progress Notes Filed: 03/09/2019 12:22 PM Note Text: NEUROSURGERY FOLLOW UP OFFICE NOTE Carmelo Albert MD Date of visit: March 07, 2019 Patient Name: Ms.Lysa Julianne Alvarado Date of : 1970 Current Age: [age] year old Sex: female MRN/E# [id number] Last Office Visit: 11/26/2018 Chief Complaint: No chief complaint on file. SUBJECTIVE: Ms. Alvarado presents to the office today for a routine follow up visit with imaging (xrays cervical spine) following a C5/6 ACDF on 10/05/2018. She was last seen on 11/24/2018 and noted near resolution of her pre op symptoms. Today she states she continues to do well with minimal neck pain and no arm symptoms. She is very pleased with her surgical outcome and has no new concerns today. PREVIOUS CONSERVATIVE TREATMENTS: Physical therapy PREVIOUS SURGERY: SURGERY #1: C5/6 ACDF on 10/05/2018 PAIN EVALUATION No data found. PAST MEDICAL HISTORY Diagnosis Date - Acute gastritis without mention of hemorrhage - Chronic depressive personality disorder - Depressive disorder, not elsewhere classified 10/22/2005 - Esophageal reflux - Headache, migraine - Other forms of migraine - Seasonal allergies PAST SURGICAL HISTORY Procedure Laterality Date - DELIVERY ONLY 1993 - EGD W/O [facility] SPECIMEN W/BX 12/30/05 - PAST SURGICAL HISTORY OF 05/2018 ENDOMETRIAL ABLATION - PAST SURGICAL HISTORY OF uterine ablation - REMOVAL ADENOIDS,PRIMARY,<12 Y/O Adenoidectomy - REMOVAL OF TONSILS,<12 Y/O Tonsillectomy FAMILY HISTORY Problem Relation Age of Onset - Diabetes Father - Diabetes Maternal Grandmother - Diabetes Paternal Grandmother - Prostate Cancer Paternal Grandfather - Breast Cancer Other gmaunt - Breast Cancer Other gmaunt - Cancer Other uterine gmaunt - Arthritis Other - other (Congestive heart failure) Other - Hypertension Other - Stroke Other ALLERGIES Allergen Reactions - Codeine GI Upset Other reaction(s): AOF, Nausea Current Outpatient Medications Medication Sig Dispense Refill - buPROPion XL (WELLBUTRIN XL) 300 mg 24 hr tablet Take 1 tablet by mouth once daily. - Levocetirizine 5 mg tablet Take 1 tablet by mouth daily at bedtime. - HYDROcodone-acetaminop hen (NORCO) 5-325 mg per tablet Take 1 tablet by mouth every 6 hours as needed. - topiramate (TOPAMAX) 100 mg tablet Take 100 mg by mouth once daily. - ascorbic acid, vitamin C, (VITAMIN C) 500 mg tablet Take by mouth. - cyclobenzaprine (FLEXERIL) 10 mg tablet Take 1 tablet by mouth three times daily as needed for Muscle Spasm. 30 tablet 0 - cyanocobalamin, vitamin B-12, (VITAMIN B-12 ORAL) Take by mouth once daily. - cholecalciferol, vitamin D3, (VITAMIN D3 ORAL) Take by mouth once daily. - levocetirizine dihydrochloride (LEVOCETIRIZINE ORAL) Take 5 mg by mouth once daily. - montelukast (SINGULAIR) 10 mg tablet Take 10 mg by mouth daily at bedtime. - VITAMIN B COMPLEX ORAL Take by mouth once daily. - citalopram (CELEXA) 20 mg tablet Take by mouth once daily. - BUPROPION HCL ORAL Take 300 mg by mouth once daily. - MAGNESIUM ORAL Take 400 mg by mouth every morning. - Magnesium 250 mg tab Take 250 mg by mouth daily at bedtime. - eletriptan (RELPAX) 40 mg tablet Take 40 mg by mouth as needed. may repeat in 2 hours if necessary - zonisamide (ZONEGRAN) 100 mg capsule Take 100 mg by mouth twice daily. - topiramate 200 mg tablet Take 100 mg by mouth twice daily. - desvenlafaxine (PRISTIQ) 50 mg ORAL 24 hr tablet Take 50 mg by mouth once daily. - COMPOUNDED PRESCRIPTION Allergy Injections: Every Four Weeks 0 - famotidine(PEPCID 20 MG TAB) one tablet daily 0 - DIGESTIVE ENZYMES CAP two tabs daily 0 - MULTIVITAMIN TAB Take one(1) tablet daily. 0 No current facility-administered medications for this visit. REVIEW OF SYSTEMS Review of Systems Constitutional: Negative for chills, diaphoresis and fever. HENT: Negative for congestion. Eyes: Negative for discharge. Respiratory: Negative for cough, shortness of breath and wheezing. Cardiovascular: Negative for chest pain, palpitations and leg swelling. Gastrointestinal: Negative for constipation, diarrhea and nausea. Endocrine: Negative for cold intolerance and heat intolerance. Genitourinary: Negative for difficulty urinating, frequency and urgency. Musculoskeletal: Positive for neck pain. Negative for back pain and gait problem. Skin: Negative for rash and wound. Allergic/Immunologic: Positive for environmental allergies. Negative for food allergies. Neurological: Negative for dizziness, weakness and numbness. Hematological: Does not bruise/bleed easily. Psychiatric/Behavioral : Negative for agitation. The patient is nervous/anxious. OBJECTIVE: BP 106/70 Pulse 68 Resp 18 Physical Exam Constitutional: She is oriented to person, place, and time and well-developed, well-nourished, and in no distress. HENT: Head: Normocephalic and atraumatic. Right Ear: External ear normal. Left Ear: External ear normal. Eyes: Conjunctivae are normal. Neck: Normal range of motion. Pulmonary/Chest: Effort normal. Musculoskeletal: Normal range of motion. Neurological: She is alert and oriented to person, place, and time. Gait normal. Skin: Skin is warm and dry. Psychiatric: Mood and affect normal. Neurological Exam Mental Status Alert. Gait Normal gait. Motor: Right Upper: Left Upper: Deltoid: 5 Deltoid: 5 Triceps: 5 Triceps: 5 Biceps: 5 Biceps: 5 Motor Tone: Right Upper: Normal tone Left Upper: Normal tone Right Lower: Normal tone Left Lower: Normal tone Sensory: Light Touch: WNL Pain/Temperature: WNL Other: Gait: normal, no assistive device Data Review IMAGING STUDIES: X-Ray performed on 03/09/2019. Findings were noted as demonstrating no sign of hardware complication. She appears to be developing a skeletally mature fusion. Personal review of medical records: I reviewed with the patient, history, physical exam, the images and the chart. 1. Cervical disc disorder with radiculopathy She is doing very well postoperatively and is reporting significant improvement. I told her her x-rays look satisfactory. She'll return see me in 6 months with new x-rays. - XR CERV GENERAL 2V AP/LAT; Future Carmelo Albert MD [facility] PROGRESSon 10-06-2018 Protein mass conc HNO ID: [id number] Author: Cathy Gilmore (Domi) DOMI Caro Service: Neurosurgery Author Type: Physician Director Home Health Type: Progress Notes Filed: 10/06/2018 10:48 AM Note Text: Neurosurgery Progress Note SERVICE DATE: 10/06/2018 SUBJECTIVE: naeon - eating but with sore throat and only mild dysphagia - ambulating without difficulty - voiding, states no retention but feels it to be a bit delayed - neck pain controlled OBJECTIVE: Vitals: Temp (24hrs), Av.5 ?C (97.7 ?F), Min:36.3 ?C (97.3 ?F), Max:36.8 ?C (98.2 ?F) BP 107/68 Pulse 68 Temp 36.6 ?C (97.9 ?F) (Oral) Resp 18 Ht 157.5 cm (5' 2) Wt 70.8 kg (156 lb) SpO2 96% BMI 28.53 kg/m? O2 Therapy: Room Air IANDO: Date 10/05/18 0700 - 10/06/18 0659 10/06/18 0700 - 10/07/18 0659 Shift 0867-0012 9894-6770 1064-7224 24 Hour Total 8891-5804 8226-3520 7412-9517 24 Hour Total I N T A K E IV 1425 1425 LR 125 125 OR Crystalloid intake (mL) 1300 1300 Shift Total 1425 1425 O U T P U T Urine Urine Not Saved. 2 x 3 x 5 x Tubes 3 3 Drain/Tube Output (Drain/Tube 10/05/18 1511 Hemovac Anterior Neck Drain #1) 3 3 Shift Total 3 3 Weight (kg) 70.8 70.8 70.8 70.8 70.8 70.8 70.8 MEDICATIONS Current Facility-Administered Medications: topiramate 100 mg tab(s) (TOPAMAX) 100 mg ORAL BID zonisamide 100 mg cap(s) (ZONEGRAN) 100 mg ORAL BID famotidine 20 mg tab(s) (PEPCID) 20 mg ORAL DAILY montelukast 10 mg tab(s) (SINGULAIR) 10 mg ORAL AT BEDTIME buPROPion XL 300 mg tab(s) (WELLBUTRIN XL) 300 mg ORAL DAILY citalopram 20 mg tab(s) (CeleXA) 20 mg ORAL DAILY desvenlafaxine ER 50 mg tab(s) (PRISTIQ) 50 mg ORAL DAILY NaCl 0.45% iv infusion 100 mL/hr INTRAVENOUS CONTINUOUS morphine 4 mg injection 4 mg INTRAVENOUS q 2 H PRN HYDROcodone 5 mg - acetaminophen 325 mg tablet (NORCO) 1-2 tablet ORAL q 4 H PRN ondansetron 4 mg tab(s) (ZOFRAN) 4 mg ORAL q 6 H PRN Or ondansetron (PF) 4 mg injection (ZOFRAN) 4 mg INTRAVENOUS q 6 H PRN polyethylene glycol 3350 17 g packet (MIRALAX, GLYCOLAX) 17 g ORAL DAILY PRN docusate sodium 100 mg cap(s) (COLACE) 100 mg ORAL BID cyclobenzaprine 10 mg tab(s) (FLEXERIL) 10 mg ORAL TID PRN pill headline writer (patient-specific) 1 Each Miscell. (Med.Supl.;Non-Drugs) PRN Labs: No results for input(s): NA, K, CHLOR, CO2, BUN, CREAT, GLUC, ANION, CA, MG, P, ALB, AST, ALT, ALKPHOS, TBILI, DBILI, PHOSINTL, WBC, HB, HCT, PLT, LACT, INR, PH, PCO2, PO2, BE, HCO3 in the last 72 hours. Invalid input(s): LISDBC Exam: GENERAL: No distress, Alert, sitting up and eating breakfast NEURO: orientedx3, msp grossly intact and equal HEENT: normocephalic, drain d/c'd without complication - 3cc out since surgery LUNGS: Unlabored breathing ASSESSMENT AND PLAN: Active Hospital Problems Diagnosis Date Noted - Nicotine use disorder, F17.2 10/06/2018 - Cervical stenosis of spine 10/05/2018 47 year old female s/p C5-6 ACDF POD#1 - neuro stable - pain controlled with narcotic - ok to d/c home today - instructions reviewed - f/u appt made SIGNATURE: DOMI Low PATIENT NAME: Fidelia Whitaker Jenny DATE: October 06, 2018 TIME: 10:44 AM Pager: [phone] Normal [facility] THERAPY NTon 10-06-2018 THERAPY NT HNO ID: [id number] Author: Freya Veloz/Po Lopez Service: Occupational Therapy Author Type: Occupational Therapist Type: Therapy (PT/OT/Speech/Resp) Filed: 10/06/2018 10:46 AM Note Text: Occupational Therapy Evaluation SERVICE DATE: 10/06/2018 SERVICE TIME: 1006 to 1020 ROOM: [place] [id number] Recommended Discharge Disposition: Home Recommended Discharge Disposition Comments: Recc home with family assist as needed for ADLs/IADls OT Recommendations to Nursing: To Bathroom for ADL?s /and or Toileting OT 6 Clicks Score: 23 Precautions/Activity Restrictions: Spine;Brace Precaution/Activity Restriction Comments: c-collar on when up ASSESSMENT: Patient presents with difficulty/safety deficits with bathing and a knowledge deficit on safe ADL/IADL strategies s/p c-spine ACDF. All deficits addressed during session, no further skilled therapy required after initial eval. Patient Disposition at Start of Session: Supine in Bed;Call Rush in Reach;Family Present Patient Disposition at End of Session: Supine in Bed;Call Rush in Reach;Family Present Tolerated Full Session Occupational Therapy Problem List: Education Deficit;Impaired Self Care Patient /Caregiver Goals: Go Home;Care For Self Rehab Potential: Excellent PLAN: Treatment Frequency (times per week): Discontinue Therapy Services Reasons Therapy Services Discontinued: (no further skilled needs after initial edu) Current admission Treatment Interventions: Self Care / Home Management;Education Plan of Care developed with: Patient;Family TREATMENT INTERVENTIONS: Therapy Diagnosis: Reduced mobility-other;Decreas ed activities of daily living (ADL) (knowledge deficit) Interventions Provided: Evaluation $ Evaluation-Low (14491) Billed Units: 1 unit Educated patient on BLT precautions to protect spine with ADLs / IADLs. Discussed how techniques apply to pt's individual situation/needs and provided handout. [facility] on strategy for don/doffing brace/using spit basin. Total Treatment Time (minutes): 14 FUNCTIONAL G CODE: OT 6 Clicks Score: 23 (10/06/18 1006) Self Care Current Status (G8987): CI (10/06/18 1006) Self Care Goal Status (G8988): CI (10/06/18 1006) Self Care Discharge Status (G8989): CI (10/06/18 1006) Based on clinical assessment and the score on the 6 Clicks Functional Assessment Tool, the G code and corresponding severity modifiers are documented above. SUBJECTIVE: Current Hospital Course: Chart reviewed; Fidelia Alvarado is a 47 year old female that presents for presurgical testing. Patient states she has a history of neck pain for the last 10 years getting progressively worse. She complains the neck pain is a constant throbbing aching pain that radiates down both shoulders. She has complained recently she's had pain with some numbness radiating down the arms worse on the right arm than the left. She complains of numbness in her thumb and first 2 fingers on the right hand. She states recently she noticed that she started to have some numbness in the right thigh radiating down to her foot She complains of walking with a limp when she first gets up in the morning because of the numbness and weakness in the right leg. 10/05 C spine ACDF PAST MEDICAL HISTORY Diagnosis Date - Acute gastritis without mention of hemorrhage - Chronic depressive personality disorder - Depressive disorder, not elsewhere classified 10/22/2005 - Esophageal reflux - Other forms of migraine - Seasonal allergies PAST SURGICAL HISTORY Procedure Laterality Date - DELIVERY ONLY 1993 - EGD W/O BRSH SPECIMEN W/BX 12/30/05 - PAST SURGICAL HISTORY OF 05/2018 ENDOMETRIAL ABLATION - REMOVAL ADENOIDS,PRIMARY,<12 Y/O Adenoidectomy - REMOVAL OF TONSILS,<12 Y/O Tonsillectomy Reason for Occupational Therapy Consult: Progressive mobility protocol Relevant Past Medical History: depression, migriane Patient Report: Pt in bed with family present. Pt states has had immediate relief from sx as far as no more numbness and tingling in UEs/LEs. Pt rpts pain is well controlled. Pain: 11/21 neck Home Environment Patient Lives With: Significant Other Assistance Available: 24 Hour Entry To Home: Stairs;Without Rail Number Of Stairs Into Home: 2 Tub/Shower Type: tub/shower Laundry: basement but husb will do Prior Functional Level: Within Functional Limits Prior Functional Level Comments: I did everything but it was hard and took longer OBJECTIVE: Cognition/Communicatio n Deficits Responsiveness: Alert;Awake Follows Commands: 2-step Commands CURRENT FUNCTIONAL STATUS: Current Activities of Daily Living Assist Level Feeding Independent Grooming Stand By Assistance Bathing Upper Body Contact Guard Assistance Bathing Lower Body Contact Guard Assistance Dressing Upper Body Stand By Assistance Dressing Lower Body Stand By Assistance Toileting Stand By Assistance Functional Mobility Assist Level Rolling Supine to Sit Contact Guard Assistance Sit to Supine Contact Guard Assistance Scooting Sit to Stand Stand By Assistance Stand to Sit Stand By Assistance Bed to Chair Toilet/Commode Stand By Assistance Functional Mobility Stand By Assistance IV Pole Hand Dominance: Right Range of Motion: WFL (not tested formal shoulders due to c spine sx) Strength: WFL Except (4/5 functionally) Pt is safe for home and no further acute care OT warranted, will D/C from OT caseload. Please see discipline specific clinical documentation flowsheet for complete details for this therapy evaluation/treatment. SIGNATURE: JENNY Calderón/Magda PATIENT NAME: Fidelia Whitaker Jenny DATE: October 06, 2018 TIME: 10:41 AM Normal [facility] THERAPY NT HNO ID: [id number] Author: Grayson (Pt) Niharika Service: Physical Therapy Author Type: Physical Therapist Type: Therapy (PT/OT/Speech/Resp) Filed: 10/06/2018 9:09 AM Note Text: Physical Therapy Evaluation SERVICE DATE: 10/06/2018 SERVICE TIME: 30 to 0845 ROOM: [id number] Recommended Discharge Disposition: Home PT Recommendations to Nursing: Ambulate with device;To bathroom;In halls Device: (iv pole) PT 6 Clicks Score: 22 Precautions/Activity Restrictions: Spine;Brace Precaution/Activity Restriction Comments: c-collar on when up ASSESSMENT : This patient was admitted for cervical fusion, This patient is below her baseline functioning of independence due to lack of knowledge of precautions and pain limiting her during transfers and will benefit from continued skilled therapy in the hospital for treatment of the following body systems/impairments: musculoskeletal sytem. Patient Disposition at Start of Session: Supine in Bed;Call Rush in Reach Patient Disposition at End of Session: OOB in Chair;Call Rush in Reach Tolerated Full Session Physical Therapy Problem List: Pain;Functional Mobility Impairment;Education Deficit Patient /Caregiver Goals: Walk;Go Home Goals for Plan of Care: Transfer sit to/from stand with: Independent Ambulate with: Contact Guard Assistance Distance: 100 Device: No Device Ambulate up and down steps with: Contact Guard Assistance Number of steps: 3 Device: Rail Progress Toward Goals: (goals met) Rehab Potential: Excellent PLAN: Treatment Frequency (times per week): Discontinue Therapy Services Reasons Therapy Services Discontinued: Goals met Plan of Care developed with: Patient TREATMENT INTERVENTIONS: Therapy Diagnosis: Abnormalities of gait and mobility-other Interventions Provided: Evaluation $ Evaluation-Low (88433) Billed Units: 1 unit History and examination of body systems see assessment section above. This patient?s clinical presentation is stable. The patient required a low complexity evaluation. Pt was educated in cervical spine precautions. Avoiding bending, lifting greater than 10 # , and twisting. Pt was educated on the importance of wearing her c-collar as instructed and being certain of which stair step she is on when ascending and descending stairs so as to avoid falls. Total Treatment Time (minutes): 15 FUNCTIONAL G CODE: PT 6 Clicks Score: 22 (10/06/18 0830) Based on clinical assessment and the score on the 6 Clicks Functional Assessment Tool, the G code and corresponding severity modifiers are documented above. SUBJECTIVE: Current Hospital Course: Chart reviewed; Pt admited for a cervical fusion performed on 10/05/18. Active Hospital Problems Diagnosis - Nicotine use disorder, F17.2 - Cervical stenosis of spine PAST MEDICAL HISTORY Diagnosis Date - Acute gastritis without mention of hemorrhage - Chronic depressive personality disorder - Depressive disorder, not elsewhere classified 10/22/2005 - Esophageal reflux - Other forms of migraine - Seasonal allergies PAST SURGICAL HISTORY Procedure Laterality Date - DELIVERY ONLY 1993 - EGD W/O BRSH SPECIMEN W/BX 12/30/05 - PAST SURGICAL HISTORY OF 05/2018 ENDOMETRIAL ABLATION - REMOVAL ADENOIDS,PRIMARY,<12 Y/O Adenoidectomy - REMOVAL OF TONSILS,<12 Y/O Tonsillectomy Range of Motion: WFL Strength: WFL (avoiding testing of UEs >10# force) Reason for Physical Therapy Consult : eval Patient Report: Pt willing to participate Home Environment Patient Lives With: Significant Other Assistance Available: 24 Hour Entry To Home: Stairs;Without Rail Number Of Stairs Into Home: 2 Laundry: basement Prior Functional Level: Within Functional Limits OBJECTIVE: CURRENT FUNCTIONAL STATUS: Current Functional Mobility Assist Level Additional Information Rolling Independent Supine to Sit Verbal Cues Only Sit to Supine Verbal Cues Only Scooting Sit to Stand Supervision Stand to Sit Supervision Bed to Chair Supervision Bed To Chair Transfer Type: Stand Pivot Toilet/Commode Gait Contact Guard Assistance Gait Device: None Gait Distance (feet): 250 (c-collar on) Stairs Curb Step Car Transfer -M: 8: Walk 250 feet or more Please see discipline specific clinical documentation flowsheet for complete details for this therapy evaluation/treatment. SIGNATURE: Grayson Bundy PT PATIENT NAME: Fidelia Alvarado DATE: October 06, 2018 TIME: 9:03 AM Normal [facility] ABO/Rh Confirmationon 2018 ABO group Nom (Bld) A Normal [facility] Comment on above: Performed By: #### A DERRICK #### [facility] [address] [id number] RH Type Positive Normal [facility] Comment on above: Performed By: #### A DERRICK #### [facility] [address] [id number] ANES Renard 10-05-2018 ANES POST HNO ID: [id number] Author: Blanquita Sandoval Service: Anesthesiology Author Type: Physician Type: Anesthesia PostOp Filed: 10/05/2018 5:39 PM Note Text: POST ANESTHESIA EVALUATION NOTE SERVICE DATE: 10/05/2018 SERVICE TIME: 5:39 PM : 1970 Vitals: 10/05/18 1216 10/05/18 1545 10/05/18 1645 Temp: 36.3 ?C (97.3 ?F) 36.8 ?C (98.2 ?F) 36.4 ?C (97.5 ?F) 10/05/18 1630 10/05/18 1645 10/05/18 1700 10/05/18 1715 BP: 127/75 117/80 128/79 123/77 10/05/18 1630 10/05/18 1645 10/05/18 1700 10/05/18 1715 Pulse: 72 73 83 72 10/05/18 1630 10/05/18 1645 10/05/18 1700 10/05/18 1715 Resp: 17 15 14 20 10/05/18 1630 10/05/18 1645 10/05/18 1700 10/05/18 1715 SpO2: 100% 100% 100% 100% Validated Vital Signs: Yes POST ANES STATUS: No apparent anesthetic complications. The patient is appropriately hydrated with stable respiratory and cardiovascular status. Patient has safe and adequate airway control. The patient has appropriate pain relief and no significant post operative nausea or vomiting. The patient has achieved baseline mental status. Intra-Operative Events: No Significant Anesthesia Events Further assessment by Anesthesia Service: None Other Remarks: SIGNATURE: Blanquita Sandoval MD PATIENT NAME: Fidelia Alvarado DATE: October 05, 2018 TIME: 5:39 PM PAGER/CONTACT #: [phone] [facility] ANES PREOPon 10-05-2018 ANES PREOP HNO ID: [id number] Author: Marcin Ahn MD Service: Anesthesiology Author Type: Physician Type: Anesthesia PreOp Filed: 10/05/2018 11:51 AM Note Text: ANESTHESIOLOGY DAY OF SURGERY NOTE SERVICE DATE: 10/05/2018 SERVICE TIME: 11:51 AM : 1970 Procedure(s) (LRB): C5-C6 ANTERIOR CERVICAL DECOMPRESSION FUSION WITH PLATE (N/A) CERVICAL CORPECTOMY ANT. APPROACH W/ DECOMPRESSION SPINAL CORD, EACH ADDITIONAL SEGMENT (N/A) ARTHRODESIS ANTERIOR INTERBODY W/ MIN DISCECTOMY CERVICAL BELOW C2 (N/A) ARTHRODESIS ANTERIOR W/ MIN DISCECTOMY CERVICAL 5TH INTERSPACE (N/A) ALLOGRAFT FOR SPINE SURGERY MORSELIZED (N/A) BONE MARROW ASPIRATION FOR BONE GRAFTING,SPINE SURGERY ONLY,VIA SEPARATE SKIN OR FASCIAL INCISION (N/A) INSERTION INTERVERTEBRAL BIOMED DEVICE(S) W/ANT INSTR ANCHORING,TO VERTEBRAL CORPECTOMY(IES) DEFECT W/INTERBODY FUSION,EA CONTIGUOUS DEFECT (N/A) Surgeon(s): Carmelo Albert Estimated body mass index is 28.53 kg/m? as calculated from the following: Height as of 09/28/18: 157.5 cm (5' 2). Weight as of 09/28/18: 70.8 kg (156 lb). Most recent hematocrit and potassium results: Hematocrit 42.0 09/28/2018 Potassium 4.4 09/28/2018 ANES DOS/PREOP NOTE: Vitals: There were no vitals filed for this visit. ACTIVE PROBLEM LIST 1.1 MIGRAINE W/O AURA W/ INTRACTABLE [346.11] Depressive Disorder, Not Elsewhere Classified Esophageal Reflux Acute Gastritis Without Mention of Hemorrhage PAST MEDICAL HISTORY Diagnosis Date - Acute gastritis without mention of hemorrhage - Chronic depressive personality disorder - Depressive disorder, not elsewhere classified 10/22/2005 - Esophageal reflux - Other forms of migraine - Seasonal allergies PAST SURGICAL HISTORY Procedure Laterality Date - DELIVERY ONLY 1993 - EGD W/O BRSH SPECIMEN W/BX 12/30/05 - PAST SURGICAL HISTORY OF 05/2018 ENDOMETRIAL ABLATION - REMOVAL ADENOIDS,PRIMARY,<12 Y/O Adenoidectomy - REMOVAL OF TONSILS,<12 Y/O Tonsillectomy FAMILY HISTORY Problem Relation Age of Onset - Diabetes Father - Diabetes Maternal Grandmother - Diabetes Paternal Grandmother - Prostate Cancer Paternal Grandfather - Breast Cancer Other gmaunt - Breast Cancer Other gmaunt - Cancer Other uterine gmaunt Social History: Social History Substance Use Topics - Smoking status: Current Every Day Smoker Years: 16.00 Types: Cigarettes - Smokeless tobacco: Never Used Comment: DOWN TO 4 CIGS/DAY . WAS A 1PPD SMOKER - Alcohol use No No current facility-administered medications on file prior to encounter. Current Outpatient Prescriptions on File Prior to Encounter: topiramate 200 mg tablet Take 100 mg by mouth twice daily. desvenlafaxine (PRISTIQ) 50 mg ORAL 24 hr tablet Take 50 mg by mouth once daily. COMPOUNDED PRESCRIPTION Allergy Injections: Every Four Weeks famotidine(PEPCID 20 MG TAB) one tablet daily DIGESTIVE ENZYMES CAP two tabs daily MULTIVITAMIN TAB Take one(1) tablet daily. Current Facility-Administered Medications: remifentanil 1,000 mcg in NaCl 0.9% 40 mL (ULTIVA) 0.05-0.2 mcg/kg/min (Order-Specific) INTRAVENOUS ONCE Marcin Ahn MD Allergies: ALLERGIES Allergen Reactions - Codeine GI Upset DOS EXAM: Adequate NPO status: Yes Anesthetic risks, benefits, alternatives, personnel and consent discussed: Yes Patient agrees to proceed: Yes Previous Anesthesia: No history of adverse event. Airway Assessment: MP 2; Neck ROM: Full ROM without neurologic symptoms; Airway Evaluation: No significant abnormalities Symptoms of Sleep Apnea: None Dentition: Teeth intact Additional Physical Exam: Lungs: Patient health status unchanged since recent history and physical. See history and physical for exam findings. Cardiac: Patient health status unchanged since recent history and physical. See history and physical for exam findings. Additional Pertinent Findings: N/A Blood Products: Not anticipated for this procedure. Anesthetic Plan: General, Standard ASA Monitors Pain Management Plan: Parenteral or Oral ASA Class: 2 Other Medical Problems: None Chronic Beta Elvira medication administered within 24 hours: N/A I have interviewed and examined the patient. I have reviewed the medical record and/or the pre-anesthesia evaluation, pertinent labs, and test results. Significant changes in the patient's condition since the History and Physical, not otherwise documented in primary service progress notes: No This contains updated information obtained within 48 hours of Surgery/Procedure. SIGNATURE: Marcin Ahn MD PATIENT NAME: Fidelia Alvarado DATE: October 05, 2018 TIME: 11:50 AM CSN: [id number] Normal [facility] CONSULTon 10-05-2018 CONSULT HNO ID: [id number] Author: Ania Duran Service: Hospital Medicine Author Type: Physician Type: Consults Filed: 10/05/2018 8:41 PM Note Text: DEPARTMENT OF HOSPITAL MEDICINE INITIAL CONSULT SERVICE DATE: 10/05/2018 SERVICE TIME: 8:38 PM Primary Care Physician: Anny Marie, DO NIGHT AND WEEKEND COVERAGE: From 7am - 7pm, please call Sound After 7pm, please call cross cover pager #[phone] REQUESTING PHYSICIAN: Dr. Albert REASON FOR CONSULT: Med mgt Subjective CHIEF COMPLAINT: Neck pain. HPI: This is a 47 year old female who presents with history of cervical disc displacement with radiculopathy. Early today she is resting comfortably in bed. She underwent a cervical spine surgery earlier today. She is complaining of painful swallowing but able to swallow and manage her secretions. Does complain of some neck and shoulder pain. No chest pain, shortness of breath, nausea vomiting or diarrhea. PAST MEDICAL HISTORY Diagnosis Date - Acute gastritis without mention of hemorrhage - Chronic depressive personality disorder - Depressive disorder, not elsewhere classified 10/22/2005 - Esophageal reflux - Other forms of migraine - Seasonal allergies PAST SURGICAL HISTORY Procedure Laterality Date - DELIVERY ONLY 1993 - EGD W/O BRSH SPECIMEN W/BX 12/30/05 - PAST SURGICAL HISTORY OF 05/2018 ENDOMETRIAL ABLATION - REMOVAL ADENOIDS,PRIMARY,<12 Y/O Adenoidectomy - REMOVAL OF TONSILS,<12 Y/O Tonsillectomy FAMILY HISTORY Problem Relation Age of Onset - Diabetes Father - Diabetes Maternal Grandmother - Diabetes Paternal Grandmother - Prostate Cancer Paternal Grandfather - Breast Cancer Other gmaunt - Breast Cancer Other gmaunt - Cancer Other uterine gmaunt Social History Substance Use Topics - Smoking status: Current Every Day Smoker Years: 16.00 Types: Cigarettes - Smokeless tobacco: Never Used Comment: DOWN TO 4 CIGS/DAY . WAS A 1PPD SMOKER - Alcohol use No HOME MEDICATIONS: Prior to Admission Medications Prescriptions Last Dose Informant Patient Reported? Taking? BUPROPION HCL ORAL 10/05/2018 at 0830 Yes Yes Sig: Take 300 mg by mouth once daily. COMPOUNDED PRESCRIPTION Yes No Sig: Allergy Injections: Every Four Weeks DIGESTIVE ENZYMES CAP 09/28/2018 Yes Yes Sig: two tabs daily MAGNESIUM ORAL 09/28/2018 Yes Yes Sig: Take 400 mg by mouth every morning. MULTIVITAMIN TAB 09/28/2018 Yes Yes Sig: Take one(1) tablet daily. Magnesium 250 mg tab 09/28/2018 Yes Yes Sig: Take 250 mg by mouth daily at bedtime. VITAMIN B COMPLEX ORAL 09/28/2018 Yes Yes Sig: Take by mouth once daily. cholecalciferol, vitamin D3, (VITAMIN D3 ORAL) 09/26/2018 Yes Yes Sig: Take by mouth once daily. citalopram (CELEXA) 20 mg tablet 10/04/2018 at Unknown time Yes Yes Sig: Take by mouth once daily. cyanocobalamin, vitamin B-12, (VITAMIN B-12 ORAL) 09/28/2018 Yes Yes Sig: Take by mouth once daily. desvenlafaxine (PRISTIQ) 50 mg ORAL 24 hr tablet 10/04/2018 at Unknown time Yes Yes Sig: Take 50 mg by mouth once daily. eletriptan (RELPAX) 40 mg tablet 09/28/2018 Yes Yes Sig: Take 40 mg by mouth as needed. may repeat in 2 hours if necessary famotidine(PEPCID 20 MG TAB) 10/04/2018 at Unknown time Yes Yes Sig: one tablet daily levocetirizine dihydrochloride (LEVOCETIRIZINE ORAL) 10/04/2018 at Unknown time Yes Yes Sig: Take 5 mg by mouth once daily. montelukast (SINGULAIR) 10 mg tablet 09/28/2018 Yes Yes Sig: Take 10 mg by mouth daily at bedtime. topiramate 200 mg tablet 10/04/2018 at Unknown time Yes Yes Sig: Take 100 mg by mouth twice daily. zonisamide (ZONEGRAN) 100 mg capsule 10/04/2018 at Unknown time Yes Yes Sig: Take 100 mg by mouth twice daily. Facility-Administered Medications: None ALLERGIES Allergen Reactions - Codeine GI Upset REVIEW OF SYSTEM: All ROS are negative except those noted in HPI Objective PHYSICAL EXAM: BP 122/71 Pulse 73 Temp (Src) 97.3 (Oral) Resp 16 Ht 5' 2 (1.58m) Wt 156 lb (70.8kg) SpO2 100% BMI 28.53 kg/(m2). GENERAL: Alert, no distress, cooperative, NAD SKIN: Warm, dry intact, no open lesions, no rashs HEAD/SINUSES: Normocephalic, atraumatic, oral mucosa moist EYES: PERRLA, EOMI NECK: Table [place] collar in place. Hemovac drain with small amount of serosanguineous fluid. Did not assess range of motion due to postop status. Postsurgical dressing is clean dry and intact. LUNGS: Lungs clear to auscultation, no wheezes, ronchi, or rales CARDIAC: RRR, Normal S1 and S2; no rubs, murmurs, or gallops ABDOMEN: Abdomen soft, non-tender, BS normal, No masses or organomegaly EXTREMITIES: Extremities normal, no deformities, edema, clubbing or skin discoloration. NEURO: Sensation grossly intact, Cranial nerves II-XII intact, moves all 4 extremities, speech was clear and coherent - no chronic acevedo DATA: Diagnostic tests reviewed for today's visit: Most recent labs and imaging results. CBC: No results for input(s): WBC, RBC, HB, HCT, PLT, MCV, MCH, MPV, RDW in the last 24 hours. Coags: No results for input(s): INR, APTT in the last 24 hours. Invalid input(s): PT BMP: No results for input(s): NA, K, CHLOR, CO2, BUN, CREAT, GLUC in the last 24 hours. CMP: No results for input(s): NA, K, CHLOR, CO2, BUN, CREAT, GLUC, TPROT, CA, MG, ALBUMIN, TBILI, ALKPHOS, ALT, AST, ANION in the last 24 hours. Cardiac Enzymes: No results for input(s): CK, MB, CKMB, TROPT in the last 24 hours. Liver Function, Amylase, Lipase: No results for input(s): TPROT, ALB, ALT, AST, ALKPHOS, TBILI, AMYLASE, LIPASE, LACTATE in the last 24 hours. MG/PHOS: No results for input(s): MG, P in the last 24 hours. Renal Panel: No results for input(s): ALBUMIN, CREAT, BUN, GLUC, CA, P, CHLOR, K, CO2, NA in the last 24 hours. Heme: No results for input(s): RETICP, ABSRETIC, LD, JED, FE, TIBC, TRANSFERSAT in the last 24 hours. Assessment/Plan 1. Postop day 0 status post cervical spine surgery - management per neurosurgery 2. Depression- Continue with home medications 3. GERD - continue with home medications No acute internal medicine needs at this time I will sign off please notify if needed. VTE Prophylaxis: Pneumatic Compression Device Disposition: Home Plan of care discussed with: Patient Code status: Full SIGNATURE: Ania Duran DO PATIENT NAME: Fidelia Alvarado DATE: October 05, 2018 TIME: 8:38 PM PAGER/CONTACT #: [phone] [facility] OPERATIVE NOon 10-05-2018 OPERATIVE NO HNO ID: [id number] Author: Carmelo Albert Service: Neurosurgery Author Type: Physician Type: Operative Report Filed: 10/05/2018 3:34 PM Note Text: OPERATIVE REPORT LOG ID: [id number] SURGERY/PROCEDURE DATE: 10/05/2018 INCISION/PROCEDURE START TIME: 2:27 PM INCISION CLOSE/PROCEDURE END TIME: SURGEON(S)/PROCEDURALI ST(S) AND OXYGRAPH OPERATOR(S): Surgeon(s) and Role: * Carmelo Albert - Primary * Yan Tamayo (Res) Mikhail - Resident - Assisting No Additional Staff PRE-OPERATIVE DIAGNOSIS: Cervical disc displacement with radiculopathy POST-OPERATIVE DIAGNOSIS: Same SURGERY/PROCEDURE(S): 1. Subtotal cervical corpectomy C5, C6 2. Bilateral foraminotomies C5-6 3. Arthrodesis C5-6 4. Insertion of biomechanically threaded device C5-6 5. Plating C5-6 6. Harvesting of iliac crest bone marrow through separate stab incision ANESTHESIA: General INDICATIONS: This is a 47-year-old female who presents with neck pain and upper extremity radiculopathy. She was evaluated with a variety of radiographic studies including a MRI demonstrating the above-mentioned findings. She was felt to be a good candidate for this procedure. The procedure, risks, benefits, and alternatives were discussed with the patient in great detail. She has elected to proceed. DETAILS OF PROCEDURE: Following the obtaining of full informed consent, the patient was brought to the operating room and underwent induction of general endotracheal anesthesia. She was then positioned on the operating table in supine position, given IV antibiotics, and connected to the intra nerve electrodiagnostic monitoring system. She was then prepped and draped in usual sterile manner. Following surgical timeout, a small stab incision was made overlying the left iliac crest. A 12-gauge Jamshidi needle was advanced into the iliac crest, following which bone marrow was aspirated and mixed with prefabricated master graft sponge consisting of collagen and calcium triphosphate. This was laid aside for later use in the arthrodesis portion of the procedure. Following this, a small incision was made to the right of midline inferior to the thyroid cartilage. Dissection is carried down through the subcutaneous tissues tissues to expose the platysma which was split longitudinally to allow access to the anterior cervical triangle. The sternocleidomastoid, carotid sheath, and their contents were retracted laterally from the omohyoid and midline structures which were retracted medially. The prevertebral soft tissue space and came into view, was coagulated with bipolar cautery, and then cut with Metzenbaum scissors. The longus Colli muscles were then elevated with the Bovie cautery following which a self-retaining black mill operator retractor was placed along the muscles to provide exposure. An intraoperative plain radiograph was obtained to verify the location of the levels in question. Once this was done, 2 separate 14 mm [place] posts were placed within the vertebral bodies of C5 and C6. An annulotomy was then made into this space with a #11 blade. All loose cartilaginous disc material was removed from within the disc space. A curet was used to scrape the endplates at C5 inferiorly and C6 superiorly. Following this, a high-speed pneumatic cuba was used to perform a partial and subtotal corpectomy at C5 inferiorly and C6 superiorly. Proximally 50-60% of each of the 2 vertebral bodies was drilled away encompassing the anterior osteophytes, through the endplates and down to the posterior osteophytes. Following this the posterior longitudinal ligament was penetrated with a sharp nerve hook and then resected using a 3 mm Kerrison punch. Bilateral foraminotomies were then performed resulting in complete decompression of these levels. Following this, an anterior arthrodesis was performed from C5-C6 using a mixture of the bone marrow aspirate and master graft sponge. This was packed within the confines of a biomechanically threaded device from the Austin set. The Shanti cage was then laced within the vertebrectomy defect spanning C5 and C6. Following this an anterior cervical Austin plate was affixed to the vertebral bodies of C5 and C6 and secured with 14 mm screws. The postimplantation x-ray was obtained demonstrating good position of the hardware. Following this, the wound was copiously irrigated with antibiotic saline. Immaculate hemostasis was achieved in the usual manner following which, we re-irrigated the wound to ensure that there was no active bleeding. At this point, a 1/8 inch Hemovac drain was left in place, tunneled out through the skin, and secured with a drain stitch. The wound was then closed in center fashion using 3-0 Vicryl in subcutaneous tennis tissues and platysma and a running 4-0 Monocryl in a subcuticular fashion on the skin. A sterile dressing was applied. All counts were correct at the end of the case. No complications were encountered. The patient was then turned over to anesthesia for extubation. ESTIMATED BLOOD LOSS: 50 mls SPECIMENS: None IMPLANTABLE DEVICES: Shanti anterior cervical plate and cage DRAINS: 1/8 inch Hemovac COMPLICATIONS: None SIGNATURE: Carmelo Albert MD PATIENT NAME: Fidelia Whitaker [facility] DATE: October 05, 2018 TIME: 3:25 PM PAGER/CONTACT #: Normal [facility] OR CERVICAL SPECIFY 1Von OR CERVICAL SPECIFY 1V Performed at [facility] APPROVED BY: Dell Cochran MD EXAM TITLE: 2 INTRAOPERATIVE VIEWS CERVICAL SPINE DATE: 10/05/2018 14:38 COMPARISON: None. CLINICAL INDICATION/HISTORY: Cervical spondylosis TECHNIQUE: 2 crossfire lateral intraoperative films of the cervical spine were obtained FINDINGS: The first image demonstrates a retractor device with a probe in profile with the anterior C4-C5 intervertebral disc space. The second image demonstrates new ACDF hardware at C5-C6. Interbody spacer material present at the C5-C6 disc space level. IMPRESSION: Intraoperative/postope rative findings as noted. Normal [address] [facility] Urine HCG, Qual.on 9 Beta HCG ( test) Ql (U) Negative Normal Negative [facility] [employer] [facility] Comment on above: Performed By: #### H CGUR #### [facility] [address] [place] [id number] Specific [place], Ur 1.015 Normal 1.005-1.030 [facility] Comment on above: Performed By: #### H CGUR #### [place] [id number] PROGRESSon 09-30-2018 Protein mass conc HNO ID: [id number] Author: Rhonda Negron Service: Anesthesiology Author Type: Nurse Practitioner Type: Progress Notes Filed: 09/30/2018 1:44 PM Note Text: Chart reviewed.Confirmed EKG showed no infarct. No cardiac history. Mets 5.50 patient denies Cp or SOB with activity. Ok to proceed with ACC/AHA guidelines. Rhonda Negron APRN.CHRONIC CARE NURSE September 30, 2018 1:44 PM Normal [facility] Activated PTTon 09-28-2018 aPTT Coag (Bld) [Time] 26.1 s Normal 23.0-32.4 [facility] Comment on above: Result Comment: Note : New Reference Range Unfractionated Heparin Therapeutic Ranges: Standard Heparin Nomogram: 53 to 78 seconds (anti-Xa level of 0.3 to 0.7 U/mL) Low Dose/ACS Nomogram: 49 to 67 seconds (anti-Xa level of 0.2 to 0.5 U/mL) Stroke Treatment Nomogram: 49 to 67 seconds (anti-Xa level of 0.2 to 0.5 U/mL) Note: The APTT therapeutic range has been determined for the current lot of laboratory APTT reagent in use throughout the [facility]. Performed By: #### A PTT #### [place] [id number] Basic Panelon 09-28-2018 Creatinine [Mass/Vol] 0.88 mg/dL Normal 0.51-0.95 [facility] Comment on above: Performed By: #### P 8 #### [place] [address] Anion gap [Moles/Vol] 11 mmol/L Normal 8-16 [facility] Comment on above: Performed By: #### P 8 #### [place] [id number] Calcium [Mass/Vol] 8.7 mg/dL Normal 8.5-10.1 [facility] Comment on above: Performed By: #### P 8 #### [facility] [address] [place], [place] [address] CO2 [Moles/Vol] 26 mmol/L Normal 21-32 [facility] Comment on above: Performed By: #### P 8 #### [facility] [address] [place], [place] [address] Glucose [Mass/Vol] 74 mg/dL Normal 70-99 [facility] Comment on above: Performed By: #### P 8 #### [facility] [address] [place], [place] [address] Urea nitrogen [Mass/Vol] 19 mg/dL High 7-18 [facility] Comment on above: Performed By: #### P 8 #### [facility] [address] [place], [place] [address] Chloride [Moles/Vol] 108 mmol/L High 98-107 [facility] Comment on above: Performed By: #### P 8 #### [facility] [address] [place], [place] [address] Potassium [Moles/Vol] 4.4 mmol/L Normal 3.5-5.1 [facility] Comment on above: Performed By: #### P 8 #### [facility] [address] [place], [place] [address] Sodium [Moles/Vol] 141 mmol/L Normal 136-145 [facility] Comment on above: Performed By: #### P 8 #### [facility] [address] [place], [place] [address] HISTORY PHYSICALon 9 HISTORY PHYSICAL HNO ID: [id number] Author: Rand Winn Service: (none) Author Type: Nurse Practitioner Type: HANDP Filed: 09/28/2018 11:26 AM Note Text: HISTORY AND PHYSICAL EXAMINATION SERVICE DATE: 09/28/2018 SERVICE TIME: 11:18 AM PRIMARY CARE PHYSICIAN: Joyce Nunez MD REASON FOR VISIT: Fidelia Alvarado is a 47 year old female who is scheduled for presurgical testing at the request of Dr. Carmelo Albert for routine HANDP. The patient has the following: ACTIVE PROBLEM LIST 1.1 MIGRAINE W/O AURA W/ INTRACTABLE [346.11] Depressive Disorder, Not Elsewhere Classified Esophageal Reflux Acute Gastritis Without Mention of Hemorrhage Subjective CHIEF COMPLAINT: Neck and shoulder pain HPI: Fidelia Alvarado is a 47 year old female that presents for presurgical testing. Patient states she has a history of neck pain for the last 10 years getting progressively worse. She complains the neck pain is a constant throbbing aching pain that radiates down both shoulders. She has complained recently she's had pain with some numbness radiating down the arms worse on the right arm than the left. She complains of numbness in her thumb and first 2 fingers on the right hand. She states recently she noticed that she started to have some numbness in the right thigh radiating down to her foot She complains of walking with a limp when she first gets up in the morning because of the numbness and weakness in the right leg. She had an MRI done June 15, 2018 of her C-spine. She states she will use Aleve as needed for pain with little relief. She complains now that her migraines are becoming more frequent with daily headaches. She has discussed surgical risk and benefits with Dr. Albert and agreed. PAST MEDICAL HISTORY Diagnosis Date - Acute gastritis without mention of hemorrhage - Chronic depressive personality disorder - Depressive disorder, not elsewhere classified 10/22/2005 - Esophageal reflux - Other forms of migraine - Seasonal allergies PAST SURGICAL HISTORY Procedure Laterality Date - DELIVERY ONLY 1993 - EGD W/O BRSH SPECIMEN W/BX 12/30/05 - PAST SURGICAL HISTORY OF 05/2018 ENDOMETRIAL ABLATION - REMOVAL ADENOIDS,PRIMARY,<12 Y/O Adenoidectomy - REMOVAL OF TONSILS,<12 Y/O Tonsillectomy FAMILY HISTORY Problem Relation Age of Onset - Diabetes Father - Diabetes Maternal Grandmother - Diabetes Paternal Grandmother - Prostate Cancer Paternal Grandfather - Breast Cancer Other gmaunt - Breast Cancer Other gmaunt - Cancer Other uterine gmaunt SOCIAL HISTORY: Social History Marital status: Spouse name: Years of education: Number of children: 1 Occupational History Occupation Employer Comment [employer] Social History Main Topics Smoking status: Current Every Day Smoker Packs/day: 0.00 Years: 16.00 Types: Cigarettes Smokeless tobacco: Never Used Comment: DOWN TO 4 CIGS/DAY . WAS A 1PPD SMOKER Alcohol use: No Drug use: No Sexual activity: Yes Partners with: Male Comment: partner with vas Other Topics Concern Exercise Not Asked Comment:homer monge Prior to Admission medications as of 09/28/18 1117 Medication Sig Last Dose Taking cyanocobalamin, vitamin B-12, (VITAMIN B-12 ORAL) Take by mouth once daily. Taking Yes cholecalciferol, vitamin D3, (VITAMIN D3 ORAL) Take by mouth once daily. Taking Yes levocetirizine dihydrochloride (LEVOCETIRIZINE ORAL) Take 5 mg by mouth once daily. Taking Yes montelukast (SINGULAIR) 10 mg tablet Take 10 mg by mouth daily at bedtime. Taking Yes VITAMIN B COMPLEX ORAL Take by mouth once daily. Taking Yes citalopram (CELEXA) 20 mg tablet Take by mouth once daily. Taking Yes BUPROPION HCL ORAL Take 300 mg by mouth once daily. Taking Yes MAGNESIUM ORAL Take 400 mg by mouth every morning. Taking Yes Magnesium 250 mg tab Take 250 mg by mouth daily at bedtime. Taking Yes eletriptan (RELPAX) 40 mg tablet Take 40 mg by mouth as needed. may repeat in 2 hours if necessary Taking Yes zonisamide (ZONEGRAN) 100 mg capsule Take 100 mg by mouth twice daily. Taking Yes topiramate 200 mg tablet Take 100 mg by mouth twice daily. Taking Yes MULTIVITAMIN TAB Take one(1) tablet daily. Taking Yes desvenlafaxine (PRISTIQ) 50 mg ORAL 24 hr tablet Take 50 mg by mouth once daily. COMPOUNDED PRESCRIPTION Allergy Injections: Every Four Weeks famotidine(PEPCID 20 MG TAB) one tablet daily DIGESTIVE ENZYMES CAP two tabs daily No medication comments found. ALLERGIES Allergen Reactions - Codeine GI Upset REVIEW OF SYSTEMS: PAIN ASSESSMENT: Pain Pain Score: 5/10 Pain Location: (NECK, SHOULDERS ) Duration Amount of Time: 10 Duration Units: Years General: Denies fever, chills, and unexpected weight change. Neuro: Positive for headache Respiratory: She is a current smoker cutting down to a few cigarettes a day. Cardiovascular: No history of angina, CHF, PR, cardiac surgery or stents. GI: Denies abd pain and N/V/D. : Denies dysuria. 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 LMP stopped after ablation 05/2018 Endocrine: No history of diabetes or thyroid disease Hematology: Denies history of bleeding or clotting disorder. Psych: + anxiety/depression. Musculoskeletal: SEE HPI Skin: Denies open sores and rashes. Objective PHYSICAL EXAM: VITALS: BP 110/67 Pulse 73 Temp (Src) 98.6 (Temporal Artery) Resp 76 Ht 5' 2 (1.58m) Wt 156 lb (70.8kg) SpO2 98% LMP 05/29/2018 BMI 28.53 kg/(m2). General: NAD. Cooperative. Skin: Skin is warm, no rashes, and no open sores. HEENT: Normocephalic. Cardiovascular: Normal S1 AND S2, no rubs, murmurs or gallops. No JVD. Pulse regular. Lungs: Normal breath sounds, no wheezes or crackles. Abdomen: Soft, non-tender, +BS throughout Extremities: SEE HPI Neurological: Alert and oriented to person, place, and time. Diagnostic tests reviewed for today's visit: Lab Value Units Date High Low HB No results within date range. HCT No results within date range. WBC No results within date range. PLT No results within date range. NA No results within date range. K No results within date range. GLUC No results within date range. BUN No results within date range. CREAT No results within date range. PTSEC No results within date range. INR No results within date range. APTT No results within date range. ALT No results within date range. AST No results within date range. TBILI No results within date range. TSH No results within date range. Lab Value Units Date High Low HCGQT No results within date range. UHCG No results within date range. HCG, BODY* No results within date range. Lab Value Units Date High Low ABORHD No results within date range. ABSCREEN No results within date range. No results found for: HBA1C Most recent labs Most recent imaging METS: Climb a flight of stairs or walk up a hill (5.50 METs) Patient denies any chest pain or undue shortness of breath with the above physical activity. ANESTHESIA FINDINGS: Intubation History: No history of difficult intubation Significant Anesthesia Considerations: None There is no known pertinent medical condition which may affect leonides-operative course + instructed patient to call surgeon for directions regarding Relpax. She verbalized understanding. Assessment/Plan Cervical spinal stenosis [M48.02] PLAN Planned Procedure: C5-C6 ANTERIOR CERVICAL DECOMPRESSION FUSION WITH PLATE ,CERVICAL CORPECTOMY ANT. APPROACH W/ DECOMPRESSION SPINAL CORD, EACH ADDITIONAL SEGMENT, ARTHRODESIS ANTERIOR INTERBODY W/ MIN DISCECTOMY CERVICAL BELOW C2, ARTHRODESIS ANTERIOR W/ MIN DISCECTOMY CERVICAL 5TH INTERSPACE, ALLOGRAFT FOR SPINE SURGERY MORSELIZED, BONE MARROW ASPIRATION FOR BONE GRAFTING,SPINE SURGERY ONLY,VIA SEPARATE SKIN OR FASCIAL INCISION, INSERTION INTERVERTEBRAL BIOMED DEVICE(S) W/ANT INSTR ANCHORING,TO VERTEBRAL CORPECTOMY(IES) DEFECT W/INTERBODY FUSION,EA CONTIGUOUS DEFECT CONSULTS: Per patient no clearances were requested by surgeon for this procedure. The Following Tests/Procedures Have Been Initiated: EKG, TANDS, CBC, BMP, PT/INR/PTT ORDERED BY SURGEON ON WRITTEN ORDERS. Planned Anesthetic: General Instructions Given to Patient: Patient given verbal and written preop instructions and voices comprehension and compliance. SIGNATURE: Rnad Winn APRN.CNP PATIENT NAME: Fidelia Alvarado DATE: September 28, 2018 TIME: 10:57 AM PAGER/CONTACT #: Normal [facility] Hemogramon 09-28-2018 Erythrocyte distribution width (RBC) [Ratio] 13.1 % Normal 11.7-14.4 [facility] Comment on above: Performed By: #### C BC1 #### [place] [address] Hematocrit (Bld) [Volume fraction] 42.0 % Normal 34.1-44.9 [facility] Comment on above: Performed By: #### C BC1 #### [place] [id number] Hemoglobin (Bld) [Mass/Vol] 13.4 g/dL Normal 11.2-15.7 [facility] Comment on above: Performed By: #### C BC1 #### [place] [id number] MCH (RBC) [Entitic mass] 30.7 pg Normal 25.6-32.2 [facility] Comment on above: Performed By: #### C BC1 #### [place] [id number] MCHC (RBC) [Mass/Vol] 31.9 % Normal 31.6-34.8 [facility] Comment on above: Performed By: #### C BC1 #### [facility] [address] [place] [id number] MCV (RBC) [Entitic vol] 96.1 fL High 79.4-94.8 [facility] Comment on above: Performed By: #### C BC1 #### [facility] [address] [place] [address] Platelet mean volume (Bld) [Entitic vol] 11.3 fL Normal 9.4-12.3 [facility] Comment on above: Performed By: #### C BC1 #### [facility] [address] [place] [address] Platelets (Bld) [#/Vol] 292 thou/cmm Normal 182-369 [facility] Comment on above: Performed By: #### C BC1 #### [facility] [address] [place] [address] RBC (Bld) [#/Vol] 4.37 mil/cmm Normal 3.93-5.22 [facility] Comment on above: Performed By: #### C BC1 #### [facility] [address] [place] [address] RDW SD 46.5 fl High 36.4-46.3 [facility] Comment on above: Performed By: #### C BC1 #### [place] [id number] WBC (Bld) [#/Vol] 8.20 thou/cmm Normal 3.98-10.04 [facility] Comment on above: Performed By: #### C BC1 #### [facility] [address] [place] [id number] MDRD GFRon 09-28-2018 GFR/1.73 sq M predicted among non-blacks MDRD (S/P/Bld) [Vol rate/Area] mL/min/{1.73_m2} Normal >60mL/min/1.73 m2 [facility] Comment on above: Result Comment: If t he patient is , multiply the result by 1.210. Performed By: #### G FR #### [facility] [address] [place] [address] PROGRESSon 09-28-2018 Protein mass conc HNO ID: [id number] Author: Rand Winn Service: (none) Author Type: Nurse Practitioner Type: Progress Notes Filed: 09/28/2018 4:29 PM Note Text: RED DOT: Abnormal EKG. Mets >4. Normal [facility] Protimeon 09-28-2018 INR Coag (PPP) [Relative time] 0.94 {INR} Normal 0.90-1.30 [facility] Comment on above: Result Comment: Note : Reference Range Change Vitamin K Antagonist (VKA) Therapeutic Range: INR 2 to 3 (Target INR of 2.5) Note: For patients treated with VKA drugs, such as warfarin, the [place] [employer] 2012 Guideline recommends a therapeutic INR range of 2 to 3 (target INR of 2.5). This recommendation includes high-risk patients with antiphospholipid syndrome with previous arterial or venous thromboembolism, current-generation mechanical or bioprosthetic aortic heart valve replacement. VKA Therapeutic Range for some Mechanical Valve Replacement: INR 2.5 to 3.5 (Target INR of 3) Note: Patients with mechanical aortic valve replacement and additional risk factors for thromboembolic events (atrial fibrillation, previous thromboembolism, LV dysfunction, hypercoagulable conditions) or an older generation mechanical AVR (i.e., ball in-Cage) or any mechanical MVR should have a INR therapeutic range of 2.5 to 3.5 target INR of 3). Chance GH, et al. Chest 2012; 141:7S-47S Mando RA et al. JACC 2017; 70: 252-289 Performed By: #### P T #### [facility] [address] [place] [address] PT Coag (PPP) [Time] 9.8 s Normal 9.7-13.0 [facility] Comment on above: Performed By: #### P T #### [facility] [address] [place] [address] Type and Screenon 09-28-2018 ABO group Nom (Bld) A Normal [facility] Comment on above: Performed By: #### T &S #### [facility] [address] [place] [address] Comment PAT specimen Normal [facility] Comment on above: Performed By: #### T &S #### [facility] [address] [place] [address] RH Type Positive Normal [facility] Comment on above: Performed By: #### T &S #### [facility] [address] [place] [address] HOSPon 08-30-2018 HOSP Patient:Fidelia Alvarado MRN: Height:5' 2(1.575 m) Weight:156 lb (70.761 kg) Outpatient Medications as of 10/05/18: cyanocobalamin, vitamin B-12, (VITAMIN B-12 ORAL) cholecalciferol, vitamin D3, (VITAMIN D3 ORAL) levocetirizine dihydrochloride (LEVOCETIRIZINE ORAL) montelukast (SINGULAIR) 10 mg tablet VITAMIN B COMPLEX ORAL citalopram (CELEXA) 20 mg tablet BUPROPION HCL ORAL MAGNESIUM ORAL Magnesium 250 mg tab eletriptan (RELPAX) 40 mg tablet zonisamide (ZONEGRAN) 100 mg capsule topiramate 200 mg tablet desvenlafaxine (PRISTIQ) 50 mg ORAL 24 hr tablet COMPOUNDED PRESCRIPTION famotidine(PEPCID 20 MG TAB) DIGESTIVE ENZYMES CAP MULTIVITAMIN TAB Admission/Clinic Administered Medications as of 10/05/18: remifentanil 1,000 mcg in NaCl 0.9% 40 mL (ULTIVA) lactated ringers infusion meperidine (PF) 12.5 mg injection (DEMEROL) fentaNYL 50 mcg/mL 50 mcg injection (SUBLIMAZE) morphine 3 mg injection ondansetron (PF) 4 mg injection (ZOFRAN) ondansetron (PF) 4 mg injection (ZOFRAN) Problem List: 1.1 MIGRAINE W/O AURA W/ INTRACTABLE [346.11] [G43.019] Depressive disorder, not elsewhere classified [F32.9] Esophageal reflux [K21.9] Acute gastritis without mention of hemorrhage [K29.00] Allergies: Codeine Date Verified: 10/05/18 Lab Values Lab Value Units Date High Low POTA* 4.4 mEq/L 09/28/2018 5.1 3.5 LILI* 42.0 % 09/28/2018 44.9 34.1 Progress Notes (PRE SURG TESTING [facility]): Rand Winn APRN.CNP 09/28/2018 10:50 AM Signed PATIENT PREOPERATIVE INSTRUCTIONS Carmelo Albert* has scheduled you for your procedure at this surgery center: [facility]: [phone], [address] [place], [place] [address] Please read below carefully for your personalized instructions. Arrival Time for Surgery: 10/05/18 surgery time 1:00PM ARRIVE AT 11:30AM Please be aware that emergency situations arise, which may delay or change your surgical time. If this happens, we will notify you as soon as possible and regret any inconvenience. Blood Thinning Medications: - Stop NSAIDS (Ibuprofen, Advil, Aleve, Motrin, Celebrex, Mobic, etc.) 7 days before surgery, as directed by your surgeon. - You may take Tylenol (Acetaminophen) or any of your pain medications that do not contain aspirin or NSAIDS as needed. - Do NOT stop Aspirin or other anticoagulants (Coumadin, Plavix, Eliquis, Xarelto, etc.) without consulting with your claim trainee or prescribing physician as well as your surgeon. - Stop Vitamin E, ALL multi-vitamins, fish oil, herbals and dietary supplements 7 days before surgery. Dietary Restrictions: - Nothing to eat or drink after midnight except for a sip of water with approved medications. Pain Medications: Medications: Approved medications to take the morning of surgery with a sip of water: BP, Heart, thyroid, psych, seizure, and pain medications excluding NSAIDS. Use inhalers as prescribed. Please bring inhalers. If you start any new medications after today's visit, please contact the surgeon's office. Important Reminders: - If you use CPAP/BIPAP, bring the machine with you to the surgery center. - If you are prescribed inhalers for breathing, continue using them AND bring them to the surgery center. - Candy, mints, gum and tobacco products are NOT permitted the morning of surgery. - Hearing aids, dentures and glasses may be worn the morning of surgery. - NO jewelry, body piercings, makeup, hairpins or contacts are to be worn the day of surgery. If you develop symptoms such as a fever, cold, or flu, or have other changes to your health within TWO DAYS of scheduled surgery or the morning of surgery, please contact the surgery center above. Personal Belongings: - Leave ALL valuables and money at home or with family members. - You will need to have someone else (Family or friend) drive you home once discharged from the hospital. You cannot take a cab or Uber. You are not allowed to drive yourself home after surgery. ? Anesthesia Suggests Reading : Mckenna Rendon, Prepare for Surgery, Heal Faster: A Guide of Mind-Body Techniques ([place], [place]; [employer]; Fourth Edition , 2012. Rand Winn APRN.CHRONIC CARE NURSE Rand Winn APRN.ALEXIA 09/28/2018 11:26 AM Signed HISTORY AND PHYSICAL EXAMINATION SERVICE DATE: 09/28/2018 SERVICE TIME: 11:18 AM PRIMARY CARE PHYSICIAN: Joyce Nunez MD REASON FOR VISIT: Fidelia Alvarado is a 47 year old female who is scheduled for presurgical testing at the request of Dr. Carmelo Albert for routine HANDP. The patient has the following: ACTIVE PROBLEM LIST 1.1 MIGRAINE W/O AURA W/ INTRACTABLE [346.11] Depressive Disorder, Not Elsewhere Classified Esophageal Reflux Acute Gastritis Without Mention of Hemorrhage Subjective CHIEF COMPLAINT: Neck and shoulder pain HPI: Fidelia Alvarado is a 47 year old female that presents for presurgical testing. Patient states she has a history of neck pain for the last 10 years getting progressively worse. She complains the neck pain is a constant throbbing aching pain that radiates down both shoulders. She has complained recently she's had pain with some numbness radiating down the arms worse on the right arm than the left. She complains of numbness in her thumb and first 2 fingers on the right hand. She states recently she noticed that she started to have some numbness in the right thigh radiating down to her foot She complains of walking with a limp when she first gets up in the morning because of the numbness and weakness in the right leg. She had an MRI done June 15, 2018 of her C-spine. She states she will use Aleve as needed for pain with little relief. She complains now that her migraines are becoming more frequent with daily headaches. She has discussed surgical risk and benefits with Dr. Albert and agreed. PAST MEDICAL HISTORY Diagnosis Date - Acute gastritis without mention of hemorrhage - Chronic depressive personality disorder - Depressive disorder, not elsewhere classified 10/22/2005 - Esophageal reflux - Other forms of migraine - Seasonal allergies PAST SURGICAL HISTORY Procedure Laterality Date - DELIVERY ONLY 1993 - EGD W/O BRSH SPECIMEN W/BX 12/30/05 - PAST SURGICAL HISTORY OF 05/2018 ENDOMETRIAL ABLATION - REMOVAL ADENOIDS,PRIMARY,<12 Y/O Adenoidectomy - REMOVAL OF TONSILS,<12 Y/O Tonsillectomy FAMILY HISTORY Problem Relation Age of Onset - Diabetes Father - Diabetes Maternal Grandmother - Diabetes Paternal Grandmother - Prostate Cancer Paternal Grandfather - Breast Cancer Other gmaunt - Breast Cancer Other gmaunt - Cancer Other uterine gmaunt SOCIAL HISTORY: Social History Marital status: Spouse name: Years of education: Number of children: 1 Occupational History Occupation Employer Comment [employer] Social History Main Topics Smoking status: Current Every Day Smoker Packs/day: 0.00 Years: 16.00 Types: Cigarettes Smokeless tobacco: Never Used Comment: DOWN TO 4 CIGS/DAY . WAS A 1PPD SMOKER Alcohol use: No Drug use: No Sexual activity: Yes Partners with: Male Comment: partner with vas Other Topics Concern Exercise Not Asked Comment:homer monge Prior to Admission medications as of 09/28/18 1117 Medication Sig Last Dose Taking cyanocobalamin, vitamin B-12, (VITAMIN B-12 ORAL) Take by mouth once daily. Taking Yes cholecalciferol, vitamin D3, (VITAMIN D3 ORAL) Take by mouth once daily. Taking Yes levocetirizine dihydrochloride (LEVOCETIRIZINE ORAL) Take 5 mg by mouth once daily. Taking Yes montelukast (SINGULAIR) 10 mg tablet Take 10 mg by mouth daily at bedtime. Taking Yes VITAMIN B COMPLEX ORAL Take by mouth once daily. Taking Yes citalopram (CELEXA) 20 mg tablet Take by mouth once daily. Taking Yes BUPROPION HCL ORAL Take 300 mg by mouth once daily. Taking Yes MAGNESIUM ORAL Take 400 mg by mouth every morning. Taking Yes Magnesium 250 mg tab Take 250 mg by mouth daily at bedtime. Taking Yes eletriptan (RELPAX) 40 mg tablet Take 40 mg by mouth as needed. may repeat in 2 hours if necessary Taking Yes zonisamide (ZONEGRAN) 100 mg capsule Take 100 mg by mouth twice daily. Taking Yes topiramate 200 mg tablet Take 100 mg by mouth twice daily. Taking Yes MULTIVITAMIN TAB Take one(1) tablet daily. Taking Yes desvenlafaxine (PRISTIQ) 50 mg ORAL 24 hr tablet Take 50 mg by mouth once daily. COMPOUNDED PRESCRIPTION Allergy Injections: Every Four Weeks famotidine(PEPCID 20 MG TAB) one tablet daily DIGESTIVE ENZYMES CAP two tabs daily No medication comments found. ALLERGIES Allergen Reactions - Codeine GI Upset REVIEW OF SYSTEMS: PAIN ASSESSMENT: Pain Pain Score: 5/10 Pain Location: (NECK, SHOULDERS ) Duration Amount of Time: 10 Duration Units: Years General: Denies fever, chills, and unexpected weight change. Neuro: Positive for headache Respiratory: She is a current smoker cutting down to a few cigarettes a day. Cardiovascular: No history of angina, CHF, PR, cardiac surgery or stents. GI: Denies abd pain and N/V/D. : Denies dysuria. 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 LMP stopped after ablation 05/2018 Endocrine: No history of diabetes or thyroid disease Hematology: Denies history of bleeding or clotting disorder. Psych: + anxiety/depression. Musculoskeletal: SEE HPI Skin: Denies open sores and rashes. Objective PHYSICAL EXAM: VITALS: BP 110/67 Pulse 73 Temp (Src) 98.6 (Temporal Artery) Resp 76 Ht 5' 2 (1.58m) Wt 156 lb (70.8kg) SpO2 98% LMP 05/29/2018 BMI 28.53 kg/(m2). General: NAD. Cooperative. Skin: Skin is warm, no rashes, and no open sores. HEENT: Normocephalic. Cardiovascular: Normal S1 AND S2, no rubs, murmurs or gallops. No JVD. Pulse regular. Lungs: Normal breath sounds, no wheezes or crackles. Abdomen: Soft, non-tender, +BS throughout Extremities: SEE HPI Neurological: Alert and oriented to person, place, and time. Diagnostic tests reviewed for today's visit: Lab Value Units Date High Low HB No results within date range. HCT No results within date range. WBC No results within date range. PLT No results within date range. NA No results within date range. K No results within date range. GLUC No results within date range. BUN No results within date range. CREAT No results within date range. PTSEC No results within date range. INR No results within date range. APTT No results within date range. ALT No results within date range. AST No results within date range. TBILI No results within date range. TSH No results within date range. Lab Value Units Date High Low HCGQT No results within date range. UHCG No results within date range. HCG, BODY* No results within date range. Lab Value Units Date High Low ABORHD No results within date range. ABSCREEN No results within date range. No results found for: HBA1C Most recent labs Most recent imaging METS: Climb a flight of stairs or walk up a hill (5.50 METs) Patient denies any chest pain or undue shortness of breath with the above physical activity. ANESTHESIA FINDINGS: Intubation History: No history of difficult intubation Significant Anesthesia Considerations: None There is no known pertinent medical condition which may affect leonides-operative course + instructed patient to call surgeon for directions regarding Relpax. She verbalized understanding. Assessment/Plan Cervical spinal stenosis [M48.02] PLAN Planned Procedure: C5-C6 ANTERIOR CERVICAL DECOMPRESSION FUSION WITH PLATE ,CERVICAL CORPECTOMY ANT. APPROACH W/ DECOMPRESSION SPINAL CORD, EACH ADDITIONAL SEGMENT, ARTHRODESIS ANTERIOR INTERBODY W/ MIN DISCECTOMY CERVICAL BELOW C2, ARTHRODESIS ANTERIOR W/ MIN DISCECTOMY CERVICAL 5TH INTERSPACE, ALLOGRAFT FOR SPINE SURGERY MORSELIZED, BONE MARROW ASPIRATION FOR BONE GRAFTING,SPINE SURGERY ONLY,VIA SEPARATE SKIN OR FASCIAL INCISION, INSERTION INTERVERTEBRAL BIOMED DEVICE(S) W/ANT INSTR ANCHORING,TO VERTEBRAL CORPECTOMY(IES) DEFECT W/INTERBODY FUSION,EA CONTIGUOUS DEFECT CONSULTS: Per patient no clearances were requested by surgeon for this procedure. The Following Tests/Procedures Have Been Initiated: EKG, TANDS, CBC, BMP, PT/INR/PTT ORDERED BY SURGEON ON WRITTEN ORDERS. Planned Anesthetic: General Instructions Given to Patient: Patient given verbal and written preop instructions and voices comprehension and compliance. SIGNATURE: Rand Wnin APRN.CNP PATIENT NAME: Fidelia Alvarado DATE: September 28, 2018 TIME: 10:57 AM PAGER/CONTACT #: Rand Winn APRN.CNP 09/28/2018 4:29 PM Signed RED DOT: Abnormal EKG. Mets >4. Normal [facility] Vital Signs Date Time Vital Sign Value Performing Clinician Candice ortiz 06-08-2024 18:30-0400 Body mass index (BMI) [Ratio] 39.1 kg/m2 Deb Praisler-Wood SERVICE UNIT OPERATOR [employer]IL WELL.CHRONIC CARE NURSE Work Phone: [facility] 06-08-2024 18:30-0400 Body temperature 97.59 [degF] Deb Praisler-Wood SERVICE UNIT OPERATOR [employer]IL WELL.CHRONIC CARE NURSE Work Phone: [facility] 06-08-2024 18:30-0400 Body weight 96.98 kg Deb Praisler-Wood SERVICE UNIT OPERATOR OIL WELL.CHRONIC CARE NURSE Work Phone: [facility] 06-08-2024 18:30-0400 Diastolic blood pressure 78 mm[Hg] Deb Praisler-Wood SERVICE UNIT OPERATOR OIL WELL.CHRONIC CARE NURSE Work Phone: [facility] 06-08-2024 18:30-0400 Heart rate 74 /min Deb Praisler-Wood SERVICE UNIT OPERATOR OIL WELL.CHRONIC CARE NURSE Work Phone: [facility] 06-08-2024 18:30-0400 Respiratory rate 16 /min Deb Praisler-Wood SERVICE UNIT OPERATOR [employer]IL WELL.CHRONIC CARE NURSE Work Phone: [facility] 06-08-2024 18:30-0400 SaO2% (BldA) [Mass fraction] 97 % Deb Praisler-Wood SERVICE UNIT OPERATOR [employer]IL WELL.CHRONIC CARE NURSE Work Phone: [facility] 06-08-2024 18:30-0400 Systolic blood pressure 122 mm[Hg] Deb Praisler-Wood SERVICE UNIT OPERATOR OIL WELL.CHRONIC CARE NURSE Work Phone: [facility] 08-04-2023 08:05-0500 Body temperature 97.9 [degF] Deb Praisler-Wood SERVICE UNIT OPERATOR [employer]IL WELL.CHRONIC CARE NURSE Work Phone: [facility] 08-04-2023 08:05-0500 Body weight 94.89 kg Deb Praisler-Wood SERVICE UNIT OPERATOR [employer] WE[employer].CHRONIC CARE NURSE Work Phone: [facility] 08-04-2023 08:05-0500 Diastolic blood pressure 78 mm[Hg] Deb Praisler-Wood SERVICE UNIT OPERATOR OIL WELL.CHRONIC CARE NURSE Work Phone: [facility] 08-04-2023 08:05-0500 Heart rate 78 /min Deb Praisler-Wood SERVICE UNIT OPERATOR [employer]IL WELL.CHRONIC CARE NURSE Work Phone: [facility] 08-04-2023 08:05-0500 Respiratory rate 16 /min Deb Praisler-Wood SERVICE UNIT OPERATOR O[employer] WELL.CHRONIC CARE NURSE Work Phone: [facility] 08-04-2023 08:05-0500 SaO2% (BldA) [Mass fraction] 97 % Deb Praisler-Wood SERVICE UNIT OPERATOR OIL WELL.CHRONIC CARE NURSE Work Phone: [facility] 08-04-2023 08:05-0500 Systolic blood pressure 126 mm[Hg] Deb Praisler-Wood SERVICE UNIT OPERATOR OIL WELL.CHRONIC CARE NURSE Work Phone: [facility] 09-25-2022 14:56-0500 Body temperature 98.49 [degF] Aditya Barillas MD Work Phone: [facility] 09-25-2022 14:56-0500 Body weight 91.17 kg Aditya Barillas MD Work Phone: [facility] 09-25-2022 14:56-0500 Diastolic blood pressure 82 mm[Hg] Aditya Barillas MD Work Phone: [facility] 09-25-2022 14:56-0500 Heart rate 115 /min Aditya Barillas MD Work Phone: [facility] 09-25-2022 14:56-0500 Respiratory rate 20 /min Aditya Barillas MD Work Phone: [facility] 09-25-2022 14:56-0500 SaO2% (BldA) [Mass fraction] 97 % Aditya Barillas MD Work Phone: [facility] 09-25-2022 14:56-0500 Systolic blood pressure 128 mm[Hg] Aditya Barillas MD Work Phone: [facility] Encounters Encounter Date Encounter Type Care Provider Facility Start: 06-16-2025 ambulatory Vinod Lr Facility: [facility] Start: 06-15-2025 ambulatory Anny Malys Facility:[facility] Start: 06-14-2025 ambulatory Anny Malys Facility:[facility] Start: 06-09-2025 Encounter for other preprocedural examination Vinod Lr [facility] Start: 06-01-2025 ambulatory Anny Malys Facility:[facility] Start: 04-19-2025 End: 04-19-2025 ambulatory EDUARDO BANKS Facility:[facility] Start: 01-05-2025 End: 01-05-2025 ambulatory ADITYA BARILLAS Facility:[facility] Start: 10-21-2024 End: 10-21-2024 ambulatory Anny Malys Facility:[facility] Start: 06-08-2024 End: 06-08-2024 ambulatory ANNY A CYNTHIA Facility:[facility] Start: 06-08-2024 End: 06-08-2024 Patient encounter procedure Deb Birch APRN.CHRONIC CARE NURSE Work Phone: [facility] Comment on above: Bacterial sinusitis (Primary Dx) Start: 12-07-2023 End: 12-07-2023 Subsequent hospital visit by physician Lalita [facility] Work Phone: Radiology Start: 08-04-2023 End: 08-04-2023 Patient encounter procedure Deb Birch APRN.CHRONIC CARE NURSE Work Phone: [facility] Comment on above: Viral URI with cough (Primary Dx) Start: 09-25-2022 End: 09-25-2022 Patient encounter procedure Aditya Barillas MD Work Phone: [facility] Comment on above: Intractable migraine without aura and with status migrainosus (Primary Dx) Procedures Date Procedure Procedure Detail Performing Clinician Start: 12-07-2023 Assay of triiodothyr onine t3 free Maylin Collins MD Work Phone: Start: 09-28-2018 Antibody screen Comment on above: Performed By: #### T &S #### [facility] [address] [id number] Start: 09-28-2018 Electrocardiogram Start: 12-12-2015 Mammography Aditya costello MD Work Phone: Start: 09-21-2012 Lipid 1996 panel - S ami or Plasma Deb Birch APRN.CNP Work Phone: Plan of Treatment Date Care Activity Detail Author Start: 12-20-2033 Urine microalbumin profile DTa P,Tdap,Td Vaccine (2 - Td or Tdap) [facility] Start: 06-20-2025 Screening for malign ant neoplasm of colon [facility] Start: 05-15-2024 Covid-19 Vaccine () Covid-19 Vaccine () [facility] Start: 05-15-2024 Influenza vaccination Influenza Vacc ine (#1) [facility] Start: 05-15-2023 Covid-19 Vaccine ( season) Covid-19 Vaccine () [facility] Start: 05-15-2023 Influenza vaccination Influenza Vacc ine (#1) [facility] Start: 05-15-2022 Influenza vaccination INFLUENZA (#1) [facility] Start: 09-28-2021 DIABETES SCREEN DIABETES SCREEN [facility] Start: 09-28-2021 Diabetes Screening Diabetes Screenin g [facility] Start: 2020 SHINGRIX VACCINE (1 of 2) SHINGRIX V ACCINE (1 of 2) [facility] Start: 09-22-2018 HPV TESTING HPV TESTING [facility] Start: 09-22-2018 PAP TESTING PAP TESTING [facility] Start: 09-22-2018 Screening for malign ant neoplasm of cervix [facility] Start: 09-21-2017 Lipid 1996 panel - S ami or Plasma Lipid Screening [facility] Start: 09-21-2017 Lipid panel Lipid Screening [facility] Start: 09-21-2017 LIPID SCREEN LIPID SCREEN [facility] Start: 12-11-2016 Mammography [facility] Start: 12-11-2016 Screening for malign ant neoplasm of breast Mammogram Screening [facility] Start: 12-17-2015 COLOGUARD (FIT-DNA) COLOGUARD (FIT-D NA) [facility] Start: 12-17-2015 Colonoscopy COLONOSCOPY [facility] Start: 12-17-2015 COLORECTAL CANCER SCREENING COLORECTAL CANCER SCREENING [facility] Start: 12-17-[address] COLONOGRAPHY [facility] Start: 12-17-2015 FECAL OCCULT BLOOD FECAL OCCULT BLOO D [facility] Start: 12-17-2015 Screening for malign ant neoplasm of colon [facility] Start: 12-17-2015 [facility] Start: 1989 Hepatitis B Vaccine (1 of 3 - 19+ 3-dose series) Hepatitis B Vaccine (1 of 3 - 19+ 3-dose series) [facility] Start: 1989 Urine microalbumin profile [facility] Start: 1988 Anxiety Screening Anxiety Screening [facility] Start: 1988 HEPATITIS C SCREENING HEPATITIS C [facility] Start: 1988 Hepatitis C screening Hepatitis C [facility] Start: 1976 PNEUMOCOCCAL (1 - PCV) PNEUMOCOCCAL (1 - PCV) [facility] Start: 1976 Pneumococcal vaccination [facility] Start: 06-17-1971 COVID-19 VACCINE (#1) COVID-19 VACCI NE (#1) [facility] Start: 1970 HEPATITIS B (1 of 3 - 3-dose series) HEPATITIS B (1 of 3 - 3-dose series) [facility] Start: 1970 Hepatitis B Vaccine (1 of 3 - 3-dose series) Hepatitis B Vaccine (1 of 3 - 3-dose series) [facility] Payers Date Payer Category Payer Self-pay 2021 Unknown [employer] PPO [id number] 2021-Present [phone] [address] [place] [address] PPO [id number] 2021 Unknown [id number] Unknown [id number] Unknown [id number] Unknown [id number] Unknown [id number] Unknown [id number] Unknown [id number] Social History Date Type Detail Facility Start: 05-04-2022 End: 06-08-2024 Tobacco smoking status NHIS Smokes tobacco daily [facility] History of tobacco use Cigarette Smoker C [facility] Start: 05-04-2022 End: 06-08-2024 Tobacco use and exposure Smokeless tobacco non-user [facility] Start: 09-25-2022 End: 06-08-2024 Alcohol intake Current non-drinker of alcohol (finding) [facility] Start: 05-04-2022 Tobacco Comment DOWN TO 4 CIGS /DAY . WAS A 1PPD SMOKER [facility] Start: 1970 Sex Assigned At Not on file C [facility] Start: 03-09-2019 End: 01-30-2023 Cigarettes smoked current (pack per day) - Reported 1 [facility] Start: 01-30-2023 End: 08-04-2023 Tobacco use panel [facility] Adult Depression Screening Assessment 0 [facility] Start: 01-30-2023 Tobacco Comment Smokes approx 15 cigarettes per day - 01/30/23 [facility] Medical Equipment Procedure Code Equipment Code Equipment Origin al Text Equipment Identifier Dates Substitute Mastergraft Bone Graft Putty Void Filler .75ml - [id number] Start: 10-05-2018 Plate Aviator Titanium 12x17.4x2.5mm Bone Level 1 Automatic Lock System - [id number] Start: 10-05-2018 Screw Aviator 4m m Titanium 14mm Bone Variable Angle Self Drill Nonsterile - [id number] Start: 10-05-2018 Spacer Avs-As 0d [place] [id number] Spinal Alif - [id number] Start: 10-05-2018 Clinical Notes 11-03-2005 to 08-06-2025 Patient InstructionsDeb Birch APRN.CHRONIC CARE NURSE - 06/08/2024 6:38 PM EDTTjesusVincentoliver Man, RT(R) - 12/07/2023 4:20 PM EDTPatient InstructionsDeb Campbell APRN.CHRONIC CARE NURSE - 08/04/2023 8:20 AM EST Note Date & Type Note Facility 04-19-2025 Note HNO ID: [id number] Author: EDUARDO BANKS MD, PhD Service: ? Author Type: Physician Type: Progress Notes Filed: 04/19/2025 11:41 Note Text: [facility] Patient Name: Fidelia Alvarado Today's Date: April 19, 2025 SUBJECTIVE Patient presents with: Head Congestion: Cough, chest congestion, BROWN, ST, sinus drainage x3 weeks History of Present Illness: Fidelia Alvarado is a 54-year-old female, with a history of allergies, presenting with URI symptoms. Fidelia reports URI symptoms that began 3 weeks ago and have not improved. She endorses tactile fevers, cephalalgia, sinus pressure in the cheeks and forehead, nasal congestion with minimal discharge, and a dry, non-productive cough. She also reports otic pressure, pharyngitis, and post-nasal drip. She denies eye pain, pressure, or discharge. She has not been around anyone with strep throat or children. She has not experienced wheezing, dyspnea, cyanosis, chest pain, palpitations, nausea, emesis, diarrhea, constipation, abdominal pain, urinary symptoms, rashes, or lesions. She is a smoker and uses an inhaler for allergies, particularly when around cats. She is also on Singulair and Xyzal for allergies. She denies any lung conditions such as asthma or reactive airway disease. She has no history of diabetes, CKD, or cardiac conditions. She has a known allergy to codeine. She has not taken any antibiotics or oral steroids in the last 30 days. She is menopausal, with her last menstrual period being 6 years ago, and has had an ablation. She denies any possibility of . She reports significant fatigue, stating she slept from 1100 to 0530 the next day with only two bathroom breaks. She also notes that being outside worsens her symptoms. She is concerned about the possibility of pneumonia, as her nurse at work mentioned it is going around. She has a history of yeast infections with certain antibiotics and requests Diflucan, which she has tolerated well in the past. She has already taken off work today and plans to take tomorrow off as well. She has a vacation day on Thursday and was supposed to go away for the weekend, but is unsure if she will be able to make it. Review of Systems: Constitutional: (+) fever, (+) fatigue Head: (+) headache Eyes: (+) eye pressure Ears/Nose/Mouth/Throat: (+) sinus pressure, (+) nasal congestion, (+) nasal discharge, (+) ear pressure, (+) postnasal drip, (+) sore throat, (-) ear discharge Respiratory: (+) dry cough, (-) productive cough, (-) wheezing, (-) shortness of breath Gastrointestinal: (-) nausea, (-) vomiting, (-) diarrhea, (-) constipation, (-) abdominal pain Genitourinary: (-) dysuria Skin: (-) rash, (-) skin lesion ALLERGIES Allergen Reactions Codeine GI Upset OBJECTIVE BP 134/84 Pulse 80 Temp 37 ?C (98.6 ?F) Resp 18 Wt 100.2 kg (220 lb 14.4 oz) LMP 05/29/2018 SpO2 99% BMI 40.40 kg/m? Physical Exam: Gen: Patient is pleasant, alert, mildly ill-appearing, but nontoxic in no acute distress Head: Normocephalic, atraumatic Eyes: Sclera anicteric, no scleral injection or discharge ENT: Moderate yellow-green nasal discharge, no pharyngeal erythema or exudate, bilateral ears: External ear canal and TM visualized with no sign of infection, bilateral clear effusions, TM appears in neutral position, and intact, no tenderness to bilateral mastoids, pain to palpation over bilateral maxillary and frontal sinuses Neck: Supple, submandibular lymphadenopathy CV: Regular rate and rhythm Pulm: Coughing throughout exam dry hacking, coarse air sounds with good air movement, no definitive crackles wheezing or rhonchi, nonlabored breathing, no use of accessory muscles. Abd: Soft, non-tender, non-distended. Neuro: No involuntary movements. Extrem: No cyanosis, clubbing, or edema Skin: Warm, dry, no visible rashes ASSESSMENT AND PLAN 1. Bronchitis (J40) Bacterial sinusitis (J32.9) Symptoms consistent with bronchitis and bacterial sinusitis, including sinus pressure, nasal congestion, ear pressure, post-nasal drip, and a dry, non-productive cough. Physical exam reveals fluid in the ears and enlarged cervical lymph nodes. Patient is a smoker, increasing risk for respiratory infections. -Currently no red flags, but symptomatic and a mild reactive airway flare - Discussed risks and benefits of watchful waiting versus treatment. Discussed risks and benefits of oral steroids and antibiotics. Discussed single versus dual antibiotic coverage. Through shared decision making, patient verbalized understanding is agreeable to plan. - Initiated Augmentin twice daily for 7 days and doxycycline twice daily for 7 days to cover both sinusitis and potential bronchitis/pneumonia. - Prescribed prednisone taper. - Prescribed Tessalon Perles for cough management. - Advised patient on potential contagiousness and recommended avoiding close contact with immunocompr (more content not included)... [facility] 01-05-2025 Note HNO ID: [id number] Author: ADITYA BARILLAS MD Service: ? Author Type: Physician Type: Progress Notes Filed: 01/05/2025 09:57 Note Text: [facility] Subjective Fidelia Whitaker Jenny is a 54 year old female. Patient presents with: Head Congestion: Has chronic allergies, now worsening with BROWN, ST, sinus drainage, cough x4 days Patient with chronic environmental allergies presents with 4 days significant increase in sinus pressure and drainage. She has nasal congestion, rhinorrhea, postnasal drainage, headache, sinus pain, and some cough from drainage. She denies fever, chills, sore throat, shortness of breath, or wheezing. She has taken Advil cold and sinus medicine. She takes routine Claritin and another prescribed allergy medicine as well as desensitization shots. Review of Systems Objective BP 150/85 Pulse 90 Temp 36.6 ?C (97.9 ?F) Resp 18 Wt 98.8 kg (217 lb 13 oz) LMP 05/29/2018 SpO2 98% BMI 39.84 kg/m? Physical Exam Constitutional: General: She is not in acute distress. HENT: Right Ear: Tympanic membrane and ear canal normal. Left Ear: Tympanic membrane and ear canal normal. Nose: Congestion present. Right Sinus: Maxillary sinus tenderness and frontal sinus tenderness present. Left Sinus: Maxillary sinus tenderness and frontal sinus tenderness present. Mouth/Throat: Mouth: Mucous membranes are moist. Pharynx: Posterior oropharyngeal erythema present. No oropharyngeal exudate. Eyes: Extraocular Movements: Extraocular movements intact. Conjunctiva/sclera: Conjunctivae normal. Pupils: Pupils are equal, round, and reactive to light. Cardiovascular: Rate and Rhythm: Normal rate and regular rhythm. Heart sounds: No murmur heard. Pulmonary: Effort: No respiratory distress. Breath sounds: No wheezing, rhonchi or rales. Musculoskeletal: Cervical back: Neck supple. Lymphadenopathy: Cervical: No cervical adenopathy. Neurological: Mental Status: She is alert. {ASSESSMENT/PLAN: 1. Acute non-recurrent sinusitis, unspecified location - ICD9: 461.9, ICD10: J01.90 Symptoms consistent with secondary bacterial sinusitis on underlying environmental/seasonal allergies. New acute viral sinusitis cannot be ruled out. - AMOXICILLIN 875 MG-POTASSIUM CLAVULANATE 125 MG TABLET Continue allergy and cold medicine. She has not had fever and is approaching the end of the typical contagious phase for viral illnesses. Aditya Barillas MD Differential Diagnoses - Bacterial sinusitis is more likely for the following reason(s): suggested by HANDP - Viral sinusitis is more likely for the following reason(s): suggested by HANDP Procedures [facility] 06-08-2024 Instructions Deb Birch APRN.[facility] - 06/08/2024 6:41 PM EDT Images from the original note were not included. ASSESSMENT/PLAN: 1. Bacterial sinusitis - ICD9: 473.9, 041.9, ICD10: J32.9, B96.89 - Will begin treatment with as per antibiotic as written, see orders - The patient should also be given flonase nasal spray for the first 5-7 days of treatment. - Supportive care with plenty of fluids, rest, and analgesia prn. - AMOXICILLIN 875 MG-POTASSIUM CLAVULANATE 125 MG TABLET - Follow-up with your PCP in 3-5 days if symptoms have not improved or sooner if symptoms worsen - Discussed red flags and need for immediate medical evaluation if any occur. - Discussed supportive care treatment with fluids, rest and analgesia. - Discussed expected course of illness Deb Birch APRN.CNP Adult Sinusitis Patient Education What is Sinusitis? Sinusitis [vubu-uqj-clov-tis] is inflammation of the sinuses or swelling of the lining of the sinus cavity or nose. During an infection the sinuses become blocked with fluid causing swelling of the lining of the sinuses. Symptoms: (viral and bacterial infections) Stuffy nose Runny nose Postnasal drip Fever Toothache Headache Tiredness Cough Sore throat Face and head pressure and or pain Common causes: 98% of sinus infections are viral caused by viruses. Risk Factors of Sinusitis Include: Allergies, air pollution, indoor humidity and outdoor temperature changes, andstructural changes in the nose may contribute to sinus pain, pressure and congestion. When to get help? Temperature greater than 100.4 F Symptoms lasting more than 10 days or worsening symptoms greater than 7-10 days. If you do not improve or worsen after a course of antibiotics, you should be re-examined. Diagnosis and Treatment: Your healthcare provider will ask a number of questions about your symptoms and how long they have occurred. If symptoms of sinusitis persist greater than 10 days, it is possible you have a bacterial sinus infection and an antibiotic is prescribed. If it is viral, antibiotics will not help. You may be instructed to take [id number] medications for symptoms. including fever reducers acetaminophen or ibuprofen, nasal saline spray, cough and cold preparations and decongestants as prescribed by the physician, nurse practitioner or physician assistant chief train dispatcher. Self-Care and Prevention: Rest Fluids for hydration Good hand washing Humidifier Avoid smoking and exposure to second hand smoke Avoid sick contacts documented in this encounter [facility] 06-08-2024 Note HNO ID: [id number] Author: DEB BIRCH APRN.CNP Service: ? Author Type: Nurse Practitioner Type: Progress Notes Filed: 06/08/2024 18:41 Note Text: Subjective Sinus Problem Associated symptoms include congestion, coughing, headaches and a sore throat. Pertinent negatives include no chest pain, chills or fever. Fidelia Alvarado is a 53 year old female who presents with sinus congestion, sore throat, headache x 3 weeks. States she thought it was a normal cold and has been taking OTC medication but symptoms are not improving. Now she is having sinus pressure and increased post nasal drainage. No fever. Review of Systems Constitutional: Negative for chills and fever. HENT: Positive for congestion, sinus pain and sore throat. Negative for ear pain. Respiratory: Positive for cough. Negative for sputum production. Cardiovascular: Negative for chest pain. Neurological: Positive for headaches. BP 122/78 Pulse 74 Temp 36.4 ?C (97.6 ?F) (Tympanic) Resp 16 Wt 97 kg (213 lb 12.8 oz) LMP 05/29/2018 SpO2 97% BMI 39.10 kg/m? PAST MEDICAL HISTORY Diagnosis Date Acute gastritis without mention of hemorrhage Chronic depressive personality disorder Depressive disorder, not elsewhere classified 10/22/2005 Esophageal reflux Headache, migraine Other forms of migraine Seasonal allergies PAST SURGICAL HISTORY Procedure Laterality Date ADENOIDECTOMY PRIMARY Adenoidectomy DELIVERY ONLY 1993 EGD TRANSORAL BIOPSY SINGLE/MULTIPLE 12/30/05 PAST SURGICAL HISTORY OF 05/2018 ENDOMETRIAL ABLATION PAST SURGICAL HISTORY OF uterine ablation TONSILLECTOMY PRIMARY/SECONDARY Tonsillectomy ALLERGIES Codeine MEDICATIONS busPIRone (BUSPAR) 5 mg tablet Take 5 mg by mouth twice daily. gabapentin (NEURONTIN) 100 mg capsule take 1-3 capsules by mouth three times a day if needed citalopram (CELEXA) 40 mg tablet Take 40 mg by mouth daily at bedtime. liothyronine (CYTOMEL) 5 mcg tablet take 1 tablet by mouth daily ON AN EMPTY STOMACH rizatriptan (MAXALT) 10 mg tablet take 1 tablet by mouth AT ONSET OF MIGRAINE may repeat in 2 hours... (REFER TO PRESCRIPTION NOTES). fluticasone (FLONASE) 50 mcg/actuation nasal spray Use 2 Sprays in each nostril once daily. Rinse mouth after use. buPROPion XL (WELLBUTRIN XL) 300 mg 24 hr tablet Take 1 tablet by mouth once daily. Levocetirizine 5 mg tablet Take 1 tablet by mouth daily at bedtime. ascorbic acid, vitamin C, (VITAMIN C) 500 mg tablet Take by mouth. cyanocobalamin, vitamin B-12, (VITAMIN B-12 ORAL) Take by mouth once daily. cholecalciferol, vitamin D3, (VITAMIN D3 ORAL) Take by mouth once daily. montelukast (SINGULAIR) 10 mg tablet Take 10 mg by mouth daily at bedtime. VITAMIN B COMPLEX ORAL Take by mouth once daily. COMPOUNDED PRESCRIPTION Allergy Injections: Every Four Weeks famotidine(PEPCID 20 MG TAB) one tablet daily DIGESTIVE ENZYMES CAP two tabs daily MULTIVITAMIN TAB Take one(1) tablet daily. amoxicillin-clavulanate potassium (AUGMENTIN) 875-125 mg per tablet Take 1 tablet by mouth two times a day for 7 days. FAMILY HISTORY Problem Relation Age of Onset Diabetes Father Diabetes Maternal Grandmother Diabetes Paternal Grandmother Prostate Cancer Paternal Grandfather Breast Cancer Other gmaunt Breast Cancer Other gmaunt Cancer Other uterine gmaunt Arthritis Other other (Congestive heart failure) Other Hypertension Other Stroke Other Social History Tobacco Use Smoking status: Every Day Current packs/day: 1.00 Average packs/day: 1 pack/day for 16.0 years (16.0 ttl pk-yrs) Types: Cigarettes Smokeless tobacco: Never Tobacco comments: Smokes approx 15 cigarettes per day - 01/30/23 Substance Use Topics Alcohol use: No Drug use: No Objective Physical Exam Vitals and nursing note reviewed. Constitutional: General: She is not in acute distress. Appearance: Normal appearance. She is not ill-appearing. HENT: Right Ear: Tympanic membrane, ear canal and external ear normal. Left Ear: Tympanic membrane, ear canal and external ear normal. Nose: Nasal tenderness, mucosal edema, congestion and rhinorrhea present. Mouth/Throat: Pharynx: Uvula midline. No oropharyngeal exudate or posterior oropharyngeal erythema. Cardiovascular: Rate and Rhythm: Normal rate and regular rhythm. Heart sounds: Normal heart sounds. Pulmonary: Effort: Pulmonary effort is normal. No respiratory distress. Breath sounds: Normal breath sounds. No wheezing or rales. Musculoskeletal: Cervical back: Neck supple. Lymphadenopathy: Cervical: No cervical adenopathy. Skin: General: Skin is warm and dry. Findings: No erythema or rash. Neurological: Mental Status: She is alert. ASSESSMENT/PLAN: 1. Bacterial sinusitis - ICD9: 473.9, 041.9, ICD10: J32.9, B96.89 - Will begin treatment with as per antibiotic as written, see orders - The patient should also be given flonase nasal spray (more content not included)... [facility] 06-08-2024 History of Presen t illness Narrative Subjective Sinus Problem Associated symptoms include congestion, coughing, headaches and a sore throat. Pertinent negatives include no chest pain, chills or fever. Fidelia Alvarado is a 53 year old female who presents with sinus congestion, sore throat, headache x 3 weeks. States she thought it was a normal cold and has been taking OTC medication but symptoms are not improving. Now she is having sinus pressure and increased post nasal drainage. No fever. Review of Systems Constitutional: Negative for chills and fever. HENT: Positive for congestion, sinus pain and sore throat. Negative for ear pain. Respiratory: Positive for cough. Negative for sputum production. Cardiovascular: Negative for chest pain. Neurological: Positive for headaches. BP 122/78 Pulse 74 Temp 36.4 C (97.6 F) (Tympanic) Resp 16 Wt 97 kg (213 lb 12.8 oz) LMP 05/29/2018 SpO2 97% BMI 39.10 kg/m PAST MEDICAL HISTORY Diagnosis Date Acute gastritis without mention of hemorrhage Chronic depressive personality disorder Depressive disorder, not elsewhere classified 10/22/2005 Esophageal reflux Headache, migraine Other forms of migraine Seasonal allergies PAST SURGICAL HISTORY Procedure Laterality Date ADENOIDECTOMY PRIMARY <AGE 12 Adenoidectomy DELIVERY ONLY 1993 EGD TRANSORAL BIOPSY SINGLE/MULTIPLE 12/30/05 PAST SURGICAL HISTORY OF 05/2018 ENDOMETRIAL ABLATION PAST SURGICAL HISTORY OF uterine ablation TONSILLECTOMY PRIMARY/SECONDARY <AGE 12 Tonsillectomy ALLERGIES Codeine MEDICATIONS busPIRone (BUSPAR) 5 mg tablet Take 5 mg by mouth twice daily. gabapentin (NEURONTIN) 100 mg capsule take 1-3 capsules by mouth three times a day if needed citalopram (CELEXA) 40 mg tablet Take 40 mg by mouth daily at bedtime. liothyronine (CYTOMEL) 5 mcg tablet take 1 tablet by mouth daily ON AN EMPTY STOMACH rizatriptan (MAXALT) 10 mg tablet take 1 tablet by mouth AT ONSET OF MIGRAINE may repeat in 2 hours... (REFER TO PRESCRIPTION NOTES). fluticasone (FLONASE) 50 mcg/actuation nasal spray Use 2 Sprays in each nostril once daily. Rinse mouth after use. buPROPion XL (WELLBUTRIN XL) 300 mg 24 hr tablet Take 1 tablet by mouth once daily. Levocetirizine 5 mg tablet Take 1 tablet by mouth daily at bedtime. ascorbic acid, vitamin C, (VITAMIN C) 500 mg tablet Take by mouth. cyanocobalamin, vitamin B-12, (VITAMIN B-12 ORAL) Take by mouth once daily. cholecalciferol, vitamin D3, (VITAMIN D3 ORAL) Take by mouth once daily. montelukast (SINGULAIR) 10 mg tablet Take 10 mg by mouth daily at bedtime. VITAMIN B COMPLEX ORAL Take by mouth once daily. COMPOUNDED PRESCRIPTION Allergy Injections: Every Four Weeks famotidine(PEPCID 20 MG TAB) one tablet daily DIGESTIVE ENZYMES CAP two tabs daily MULTIVITAMIN TAB Take one(1) tablet daily. amoxicillin-clavulanate potassium (AUGMENTIN) 875-125 mg per tablet Take 1 tablet by mouth two times a day for 7 days. FAMILY HISTORY Problem Relation Age of Onset Diabetes Father Diabetes Maternal Grandmother Diabetes Paternal Grandmother Prostate Cancer Paternal Grandfather Breast Cancer Other gmaunt Breast Cancer Other gmaunt Cancer Other uterine gmaunt Arthritis Other other (Congestive heart failure) Other Hypertension Other Stroke Other Social History Tobacco Use Smoking status: Every Day Current packs/day: 1.00 Average packs/day: 1 pack/day for 16.0 years (16.0 ttl pk-yrs) Types: Cigarettes Smokeless tobacco: Never Tobacco comments: Smokes approx 15 cigarettes per day - 01/30/23 Substance Use Topics Alcohol use: No Drug use: No Objective Physical Exam Vitals and nursing note reviewed. Constitutional: General: She is not in acute distress. Appearance: Normal appearance. She is not ill-appearing. HENT: Right Ear: Tympanic membrane, ear canal and external ear normal. Left Ear: Tympanic membrane, ear canal and external ear normal. Nose: Nasal tenderness, mucosal edema, congestion and rhinorrhea present. Mouth/Throat: Pharynx: Uvula midline. No oropharyngeal exudate or posterior oropharyngeal erythema. Cardiovascular: Rate and Rhythm: Normal rate and regular rhythm. Heart sounds: Normal heart sounds. Pulmonary: Effort: Pulmonary effort is normal. No respiratory distress. Breath sounds: Normal breath sounds. No wheezing or rales. Musculoskeletal: Cervical back: Neck supple. Lymphadenopathy: Cervical: No cervical adenopathy. Skin: General: Skin is warm and dry. Findings: No erythema or rash. Neurological: Mental Status: She is alert. ASSESSMENT/PLAN: 1. Bacterial sinusitis - ICD9: 473.9, 041.9, ICD10: J32.9, B96.89 - Will begin treatment with as per antibiotic as written, see orders - The patient should also be given flonase nasal spray for the first 5-7 days of treatment. - Supportive care with plenty of fluids, rest, and analgesia prn. - AMOXICILLIN 875 MG-POTASSIUM CLAVULANATE 125 MG TABLET - Follow-up with your PCP in 3-5 days if symptoms have not improved or sooner if symptoms worsen - Discussed red flags and need for immediate medical evaluation if any occur. - Discussed supportive care treatment with fluids, rest and analgesia. - Discussed expected course of illness Deb Birch APRN.CHRONIC CARE NURSE documented in this encounter [facility] 12-07-2023 History of Presen t illness Narrative Radiology Service Progress Note PATIENT NAME: Fidelia Alvarado DATE OF SERVICE: December 07, 2023 TIME: 4:30 PM PATIENT IDENTITY VERIFICATION COMPLETED USING TWO (2) IDENTIFIERS: Name and Date of confirmed by patient verbally. FALL SCREENING: Has the patient had 2 falls in the last year or 1 fall with injury or currently using an Ambulatory Assistive Device (Walker, Cane, Wheelchair, Crutches, etc.)? No PATIENT GENDER DATA: Female. status: : No status: NO. PATIENT RELEVANT IMPLANT DATA REVIEWED: Yes PATIENT PRESENTS WITH AN IMPLANTABLE OR ATTACHED MONITORING AND EVALUATION ADVISOR: No RADIOLOGY DEPARTMENT: General X-ray: Exam(s) Completed: Lower Extremity X-Ray(s): Knee, AP / LAT Left and Wt. Bearing PERIPHERAL IV DATA: Not applicable SIGNED BY: RT Faye(R) December 07, 2023 4:30 PM documented in this encounter [facility] 08-04-2023 Instructions Deb Birch APRN.CHRONIC CARE NURSE - 08/04/2023 8:21 AM EST ASSESSMENT/PLAN: 1. Viral URI with cough - ICD9: 465.9, ICD10: J06.9 - Discussed viral etiology and rationale for treatment. - Symptomatic treatment with prn analgesia - Supportive care with fluids and rest - offered COVID/flu testing, patient declined -offered medication for cough, patient delined. - Follow-up with your PCP in 3-5 days if symptoms have not improved or sooner if symptoms worsen - Discussed red flags and need for immediate medical evaluation if any occur. - Discussed supportive care treatment with fluids, rest and analgesia. - Discussed expected course of illness Deb Birch APRN.CHRONIC CARE NURSE Treatment for Viral Upper Respiratory Tract Infections Your body will kill off the virus by itself. Additionally, you can prime your body's immune system. This may help you get better more quickly. Drink lots of fluids Make sure you are eating well Get plenty of rest We do not have any medications that kill off these viruses. Antibiotics are used to treat bacterial infections; however, they are not active against viral infections. There are some things that might help you feel better, though. Vaporizers, humidifiers, hot showers, and hot fluids help open respiratory and sinus passages [place] [facility]al [place] may offer relief of nasal and head congestion [place]'s Vapor Rub may relieve congestion Tylenol and Advil help control fevers and headaches Salt water gargles help relieve sore throats Chloraceptic spray or throat lozenges may also help relieve sore throat symptoms Occasionally, viral infections turn into something more serious. You should see your doctor or return to the Urgent Care if: You have fevers for longer than five days You have fevers above 102 degrees You are still sick after 10 days You have shortness of breath or wheezing After several days you are getting worse rather than better documented in this encounter [facility] 08-04-2023 History of Presen t illness Narrative Subjective Cough Associated symptoms include headaches and sore throat. Pertinent negatives include no chest pain, no chills, no ear pain, no myalgias and no shortness of breath. Fidelia Alvarado is a 52 year old female who presents with viral URI symptoms since yesterday. She complains of sinus congestion, cough, chest congestion, and sore throat and headache. She has not had a fever. She has been taking cough syrup. Her boyfriend has had the same symptoms for five days. She took a COVID test at home which was negative. Review of Systems Constitutional: Negative for chills and fever. HENT: Positive for congestion and sore throat. Negative for ear pain. Respiratory: Positive for cough. Negative for shortness of breath. Cardiovascular: Negative for chest pain. Gastrointestinal: Negative for abdominal pain, diarrhea, nausea and vomiting. Musculoskeletal: Negative for myalgias. Neurological: Positive for headaches. BP 126/78 Pulse 78 Temp 36.6 C (97.9 F) (Tympanic) Resp 16 Wt 94.9 kg (209 lb 3.2 oz) LMP 05/29/2018 SpO2 97% BMI 38.26 kg/m PAST MEDICAL HISTORY Diagnosis Date Acute gastritis without mention of hemorrhage Chronic depressive personality disorder Depressive disorder, not elsewhere classified 10/22/2005 Esophageal reflux Headache, migraine Other forms of migraine Seasonal allergies PAST SURGICAL HISTORY Procedure Laterality Date ADENOIDECTOMY PRIMARY <AGE 12 Adenoidectomy DELIVERY ONLY 1993 EGD TRANSORAL BIOPSY SINGLE/MULTIPLE 12/30/05 PAST SURGICAL HISTORY OF 05/2018 ENDOMETRIAL ABLATION PAST SURGICAL HISTORY OF uterine ablation TONSILLECTOMY PRIMARY/SECONDARY <AGE 12 Tonsillectomy ALLERGIES Codeine MEDICATIONS busPIRone (BUSPAR) 5 mg tablet Take 5 mg by mouth twice daily. gabapentin (NEURONTIN) 100 mg capsule take 1-3 capsules by mouth three times a day if needed citalopram (CELEXA) 40 mg tablet Take 40 mg by mouth daily at bedtime. liothyronine (CYTOMEL) 5 mcg tablet take 1 tablet by mouth daily ON AN EMPTY STOMACH rizatriptan (MAXALT) 10 mg tablet take 1 tablet by mouth AT ONSET OF MIGRAINE may repeat in 2 hours... (REFER TO PRESCRIPTION NOTES). fluticasone (FLONASE) 50 mcg/actuation nasal spray Use 2 Sprays in each nostril once daily. Rinse mouth after use. buPROPion XL (WELLBUTRIN XL) 300 mg 24 hr tablet Take 1 tablet by mouth once daily. Levocetirizine 5 mg tablet Take 1 tablet by mouth daily at bedtime. ascorbic acid, vitamin C, (VITAMIN C) 500 mg tablet Take by mouth. cyanocobalamin, vitamin B-12, (VITAMIN B-12 ORAL) Take by mouth once daily. cholecalciferol, vitamin D3, (VITAMIN D3 ORAL) Take by mouth once daily. montelukast (SINGULAIR) 10 mg tablet Take 10 mg by mouth daily at bedtime. VITAMIN B COMPLEX ORAL Take by mouth once daily. COMPOUNDED PRESCRIPTION Allergy Injections: Every Four Weeks famotidine(PEPCID 20 MG TAB) one tablet daily DIGESTIVE ENZYMES CAP two tabs daily MULTIVITAMIN TAB Take one(1) tablet daily. FAMILY HISTORY Problem Relation Age of Onset Diabetes Father Diabetes Maternal Grandmother Diabetes Paternal Grandmother Prostate Cancer Paternal Grandfather Breast Cancer Other gmaunt Breast Cancer Other gmaunt Cancer Other uterine gmaunt Arthritis Other other (Congestive heart failure) Other Hypertension Other Stroke Other Social History Tobacco Use Smoking status: Every Day Packs/day: 1.00 Years: 16.00 Additional pack years: 0.00 Total pack years: 16.00 Types: Cigarettes Smokeless tobacco: Never Tobacco comments: Smokes approx 15 cigarettes per day - 01/30/23 Substance Use Topics Alcohol use: No Drug use: No Objective Physical Exam Vitals and nursing note reviewed. Constitutional: General: She is not in acute distress. Appearance: Normal appearance. She is obese. HENT: Right Ear: Tympanic membrane, ear canal and external ear normal. Left Ear: Tympanic membrane, ear canal and external ear normal. Nose: Nose normal. Mouth/Throat: Mouth: Mucous membranes are moist. Pharynx: Oropharynx is clear. Uvula midline. No oropharyngeal exudate or posterior oropharyngeal erythema. Cardiovascular: Rate and Rhythm: Normal rate and regular rhythm. Heart sounds: Normal heart sounds. Pulmonary: Effort: Pulmonary effort is normal. No respiratory distress. Breath sounds: Normal breath sounds. No wheezing or rales. Musculoskeletal: Cervical back: Neck supple. Lymphadenopathy: Cervical: No cervical adenopathy. Skin: General: Skin is warm and dry. Findings: No erythema or rash. Neurological: Mental Status: She is alert. ASSESSMENT/PLAN: 1. Viral URI with cough - ICD9: 465.9, ICD10: J06.9 - Discussed viral etiology and rationale for treatment. - Symptomatic treatment with prn analgesia - Supportive care with fluids and rest - offered COVID/flu testing, patient declined - offered medication for cough, patient delined. - Follow-up with your PCP in 3-5 days if symptoms have not improved or sooner if symptoms worsen - Discussed red flags and need for immediate medical evaluation if any occur. - Discussed supportive care treatment with fluids, rest and analgesia. - Discussed expected course of illness Deb Birch APRN.CHRONIC CARE NURSE documented in this encounter [facility] 09-25-2022 History of Presen t illness Narrative Patient presents with: Headache: Nausea, light and sound sensitivity x3 days HPI: Headache: Duration: 3 days. Typical migraine location and character. Persistent headache like this only happens every couple years. Location: frontal, behind eyes, cheeks, occipital-cervical Character: constant aching Radiation: No. Aggravating: computer work, sound Relieving: migraine meds usually work but have not this time. Pain relievers: Took aleve and maxalt this morning Associated: nausea, light and sound sensitivity Pertinent negatives: Denies numbness, weakness, vision change, fever, head injury PAST MEDICAL HISTORY Diagnosis Date Acute gastritis without mention of hemorrhage Chronic depressive personality disorder Depressive disorder, not elsewhere classified 10/22/2005 Esophageal reflux Headache, migraine Other forms of migraine Seasonal allergies MEDICATIONS: liothyronine (CYTOMEL) 5 mcg tablet take 1 tablet by mouth daily ON AN EMPTY STOMACH rizatriptan (MAXALT) 10 mg tablet take 1 tablet by mouth AT ONSET OF MIGRAINE may repeat in 2 hours... (REFER TO PRESCRIPTION NOTES). fluticasone (FLONASE) 50 mcg/actuation nasal spray Use 2 Sprays in each nostril once daily. Rinse mouth after use. buPROPion XL (WELLBUTRIN XL) 300 mg 24 hr tablet Take 1 tablet by mouth once daily. Levocetirizine 5 mg tablet Take 1 tablet by mouth daily at bedtime. ascorbic acid, vitamin C, (VITAMIN C) 500 mg tablet Take by mouth. cyanocobalamin, vitamin B-12, (VITAMIN B-12 ORAL) Take by mouth once daily. cholecalciferol, vitamin D3, (VITAMIN D3 ORAL) Take by mouth once daily. montelukast (SINGULAIR) 10 mg tablet Take 10 mg by mouth daily at bedtime. VITAMIN B COMPLEX ORAL Take by mouth once daily. citalopram (CELEXA) 20 mg tablet Take by mouth once daily. BUPROPION HCL ORAL Take 300 mg by mouth once daily. COMPOUNDED PRESCRIPTION Allergy Injections: Every Four Weeks famotidine(PEPCID 20 MG TAB) one tablet daily DIGESTIVE ENZYMES CAP two tabs daily MULTIVITAMIN TAB Take one(1) tablet daily. desvenlafaxine ER (PRISTIQ) 50 mg 24 hr tablet Take 50 mg by mouth once daily. (Patient not taking: No sig reported) ALLERGIES: ALLERGIES Allergen Reactions Codeine GI Upset Other reaction(s): AOF, Nausea VITALS: BP 128/82 Pulse 115 Temp 36.9 C (98.5 F) Resp 20 Wt 91.2 kg (201 lb) LMP 05/29/2018 SpO2 97% BMI 36.76 kg/m PHYSICAL EXAM: GEN: pleasant, no acute distress, well nourished HEENT: PERRL, EOMI, MMM, NECK: supple, no lymphadenopathy, no thyromegaly HEART: regular rate, regular rhythm, no murmurs LUNGS: clear to auscultation, no wheezes or crackles, no increased WOB EXT: no clubbing, no cyanosis, no edema BACK: Normal curvature, no midine tenderness, no paraspinal tenderness NEURO: Alert and oriented to person, place, and time; DTR 1+/4 and strength 4/4 in upper and lower extremities, CN II-XII intact, gait normal PSYCH: normal mood, full range of affect, speech rate and content appropriate ASSESSMENT/PLAN: 1. Intractable migraine without aura and with status migrainosus - ICD9: 346.13, ICD10: G43.011 Injection and nausea medicine have helped previously, but she is unsure of the medications used. - KETOROLAC 60 MG/2 ML INTRAMUSCULAR SOLUTION - PROMETHAZINE 25 MG TABLET Seek ER evaluation for worsening headache, dizziness, worsening nausea, vision change, numbness, weakness, or speech difficulty. Follow up with her neurologist. Aditya Barillas MD documented in this encounter [facility] 11-03-2005 History of Past i llness Narrative Problem Noted Date Resolved Date Syncope and collapse 11/03/2005 06/17/2016 documented as of this encounter (statuses as of 09/26/2022) [facility] History of Past illness Narrative* Problem Noted Date Diagnosed Date Resolved Date Syncope and collapse 11/03/2005 016 documented as of this encounter (statuses as of 08/04/2023) [facility] History of Past illness Narrative* Problem Noted Date Diagnosed Date Resolved Date Syncope and collapse 11/03/2005 016 documented as of this encounter (statuses as of 12/08/2023) [facility] Intractable migraine without aura and with status migrainosus- Primary Migraine without aura, with intractable migraine, so stated, with status migrainosus [facility] Viral URI with cough- Primary Acute upper respiratory infections of unspecified site [facility] Diagnosis Bacterial sinusitis- Primary Unspecified sinusitis (chronic) documented in [facility] encounter [facility] Summary Purpose Family History No Family History Records FoundNo Family History Records FoundNo Family History Records FoundNo Family History Records Found Advance Directives No Advanced Directives Records FoundDocuments on File Type Date Recorded Patient Hospital Librarian Expl anation Advance Directive(s) 10/05/2018 3:41 PM Hospital Course Note HNO ID: [id number] Author: DOMI Davies ([place]) Service: Neurosurgery Author Type: Physician Director Home Health Type: Discharge Summaries Filed: 10/06/2018 12:09 PM Note Text: DISCHARGE SUMMARY PATIENT NAME: Fidelia Alvarado ADMISSION DATE: 10/05/2018 DISCHARGE DATE: 10/06/2018 ATTENDING PHYSICIAN: Carmelo Albert Code Status: Not on file Highest Readmission Risk Score: 9 The 30 day readmissions risk score is derived from an internally validated risk model which evaluates patient level characteristics, utilization history, medication orders and lab results up until the day of discharge. Patients with a score of 40 or above are considered highest risk for readmission. Specific patient level drivers will be listed at the bottom of the summary. REASON FOR HOSPITALIZATION: elective spine surgery DIAGNOSIS: Active Problems: Cervical stenosis of spine Nicotine use disorder, F17.2 Resolved Problems: * No resolved hospital problems. * Ruled Out OPERATIONS DURING HOSPITALIZATION: lum (more content not included)... Medications Administered Section Inactive Administered Medications - up to 3 most recent administrations Medication Order MAR Action Action Date Dose Rate Site keTORolac 60 mg injection (TORADOL) 60 mg, INTRAMUSCULAR, ONCE, 1 dose, On Willa 09/25/22 at 1530, Ketorolac (Toradol) is indicated for the short-term (up to 5 days) management of moderately severe acute pain. Continuation of ketorolac (Toradol) beyond 5 days increases the risk of developing serious adverse events. Please verify the duration of therapy for ketorolac (Toradol)., If ordered PRN for pain, patient/guardian may elect to receive this medication for higher pain levels INSTEAD of the opioid, if preferred: Yes Given 09/25/2022 3:30 PM EST 60 mg Buttocks, Right Additional Source Comments INFORMATION SOURCE (unrecogn ized section and content) DATE CREATED AUTHOR 03/09/2019 [facility] DATE CREATED AUTHOR AUTHOR'S ORGANIZ ATION 09/01/2019 [facility] DATE CREATED AUTHOR AUTHOR'S ORGANIZ ATION 04/22/2025 [facility] DATE CREATED AUTHOR AUTHOR'S ORGANIZ ATION 06/09/2025 [facility] Source Comments (unrecognize d section and content) In the event this informatio n is protected by the Federal Confidentiality of Alcohol and Drug Abuse Patient Records regulations: The Federal rules restrict any use of the information to criminally investigate or prosecute any alcohol or drug abuse patient.[facility] event this information is protected by the Federal Confidentiality of Alcohol and Drug Abuse Patient Records regulations: The Federal rules restrict any use of the information to criminally investigate or prosecute any alcohol or drug abuse patient.[facility] the event this information is protected by the Federal Confidentiality of Alcohol and Drug Abuse Patient Records regulations: The Federal rules restrict any use of the information to criminally investigate or prosecute any alcohol or drug abuse patient.[facility] event this information is protected by the Federal Confidentiality of Alcohol and Drug Abuse Patient Records regulations: The Federal rules restrict any use of the information to criminally investigate or prosecute any alcohol or drug abuse patient.[facility] Reason for Visit (unrecogniz ed section and content) Reason Comments Headache Nausea, light and so und sensitivity x3 days Reason Comments Cough Cough, sinus, chest congestion and ST x 1 day Reason Comments Sinus Problem Sinus, congestion, S T and BROWN x 3 weeks Care Teams (unrecognized sec tion and content) Flash Welding Machine Operator Relationship Specialty Start Date End Date Anny Marie DO [address] [place], [place] [id number] PCP - General Family Medicine 10/05/18 Flash Welding Machine Operator Relationship Specialty Start Date End Date Anny Marie DO [address] [place], [place] [id number] PCP - General Family Medicine 10/05/18 Flash Welding Machine Operator Relationship Specialty Start Date End Date Anny Marie DO [address] [place] [address] PCP - General Family Medicine 10/05/18 Flash Welding Machine Operator Relationship Specialty Start Date End Date Anny Marie DO [address] [place] [address] PCP - General Family Medicine 10/05/18 FOR RECORDS PERTAINING TO PATIENTS WHO ARE OR HAVE BEEN ENROLLED IN A CHEMICAL DEPENDENCY/SUBSTANCEABUSE PROGRAM, SOME INFORMATION MAY BE OMITTED. This clinical summary was aggregated from multiple sources. Caution should be exercised in using it in the provision of clinical care. This summary normalizes information from multiple sources, and as a consequence, information in this document may materially change the coding, format and clinical context of patient data. In addition, data may be omitted in some cases. CLINICAL DECISIONS SHOULD BE BASED ON THE PRIMARY CLINICAL RECORDS. [facility]. provides no warranty or guarantee of the accuracy or completeness of information in this document.
--- NOTE | 2025-06-16 07:49 | PCM.PRE.AN2 ---
ASA Classification* ASA Classification ASA Classification: 2 Assessment & Plan Anesthesia* Anesthesia Assessment Anesthesia Assessment: Discussed sedation and/or anesthesia options, risks, benefits, and alternatives with patient/parents/legal guardian/POA. Questions invited. The patient/parents/legal guardian/POA seems to understand and agrees to proceed with anesthesia plan. Reviewed the physical assessment, medical history, allergy history and patient home medications list prior to surgery/procedure/anesthetic and documented any changes. Performed airway and anesthesia risk assessments. Anesthesia Type Anesthesia Type: General and Block Anesthesia Focused Assessment* Airway Assessment Mouth opens: >3 cm Mallampati Score: II Labs Anesthesia Preop lab: CBC WBC, (4.4-11.0) 8.0 K/mm3 06/02/25, : RBC, (4.2-5.4) 4.40 M/mm3 06/02/25, Hgb, (12.0-15.0) 13.3 g/dL 06/02/25, Hct, (37-47) 40.6 % 06/02/25, : Plt Count, (150-450) 314 K/mm3 06/02/25, : CHEMISTRY Potassium, (3.5-5.1) 4.3 mmol/L 10/21/24, 09:20 Sodium, (136-145) 138 mmol/L 10/21/24, 09:20 Magnesium, (1.5-2.2) 2.2 mg/dL 06/09/25, 11:24 BUN, (7-18) 12 mg/dL 10/21/24, 09:20 Creatinine, (0.55-1.02) 0.90 mg/dL 10/21/24, 09:20 Glucose, (74-106) 107 mg/dL H 10/21/24, 09:20 TSH, (0.300-4.200) 2.060 uIU/mL 06/02/25, COAG Urine Test Negative Negative 07/18/19, 21:40 Pre-Assessment Diagnosis/Proposed Procedure Planned Operative Procedure(s): (L) Double Osteotomy of the left foot, Capsulotomy of the metatarsophalangeal joint, Flexor dithorium longus tendon transfer, Correction of the left second digit. 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 When Was Last Pacemaker Check QUESTION #4 FULL TEXT: You/Your Family Experience fever (hyperthermia) with Anesthesia Last Oral Intake Last Oral intake: Last Oral Intake NPO since Meds taken in AM with sips of water? Meds patient instructed to take am of surgery PONV PONV - pv design engineer: PONV - pv design engineer Female Yes 06/02/25 10:06 HX of Motion Sickness Yes 06/02/25 10:06 HX of N/V After Surgery No 06/02/25 10:06 Non-Smoker No 06/02/25 10:06 Duration of Surgery greater Yes 06/02/25 10:06 than 60 minutes Number of Risk Factors 3 06/02/25 10:06 PONV Score Moderate Risk 06/02/25 10:06 Height & Weight Height & Weight: Anesthesia: Height & Weight Height 5 ft 2 in 12/21/23 16:28 Respiratory Assessment Respiratory Assessment - pv design engineer: Respiratory Tract Infection Hx - pv design engineer Hx Respiratory Tract Infection Yes: 05/03/25 BRONCHITIS 06/02/25 10:06 STOP Sleep Apnea STOP Sleep Apnea - pv design engineer: STOP Sleep Apnea - pv design engineer Hx Hypertension No 06/02/25 10:06 Hx Sleep Apnea Yes 06/02/25 10:06 CPAP Yes 06/02/25 10:06 BIPAP No 06/02/25 10:06 Do you snore loudly (louder than talking or can be heard Do you often feel tired/ fatigued/ sleepy during daytime? Has anyone observed you stop breathing during sleep? STOP Results Positive 06/02/25 10:06 QUESTION #5 FULL TEXT : Do you snore loudly (louder than talking or can be heard through closed doors)? 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 Specify any problems Hx of Preganancy in last 3 N/A 06/02/25 10:06 Months Nurse Filling Out Transfusion NBUCHER 06/02/25 10:06 & Questions: Date: 06/02/25 06/02/25 10:06 Time: 10:08 06/02/25 10:06 Patient unable to answer at this time (ie. confused, unrespo /Reproduction History /Reproductive History - pv design engineer: /Reproductive Hx- pv design engineer Hx Now No 06/02/25 10:06 Gestational Age (in weeks): EDC: Hx Hx Para Hx Section SAB No 06/02/25 10:06 Active Medications Active Medications: Current Medications Generic Name Dose Route Start Last Admin Trade Name Freq PRN Reason Stop Dose Admin Acetaminophen 1,000 mg 06/16/25 09:30 Acetaminophen 500 Mg Tablet PO 06/16/25 09:31 PREOP ONE Gabapentin 600 mg 06/16/25 09:30 Gabapentin 600 Mg Tablet PO 06/16/25 09:31 PREOP ONE Cefazolin Sodium 2 gm/ Sodium 110 mls @ 200 mls/hr 06/16/25 09:30 Chloride IV 06/16/25 10:02 INTRAOP ONE Magnesium Sulfate 1 gm/ 102 mls @ 408 mls/hr 06/16/25 09:30 Dextrose IV 06/16/25 09:44 PREOP ONE Lactated Ringer's 1,000 mls @ 15 mls/hr 06/16/25 07:45 IV .Q48H KATHLEEN Insulin Human Lispro 1 - 6 unit 06/16/25 09:30 Insulin Lispro 100 Unit/Ml Insuln.Pen SC Q4H PRN PRN BG>/= 180, SEE PROTOCOL Protocol PFSH Medical History Post-menopausal Depression Anxiety Hypothyroid Thyroid disease Restless legs GERD (gastroesophageal reflux disease) Smoker CPAP (continuous positive airway pressure) dependence Sleep apnea Migraines delivery due to maternal disorder Home Medications ?Medication ?Instructions ?Recorded ?Last Taken ?Type multivitamin 1 tab PO DAILY supplement 02/25/17 Unknown History bupropion HCl 150 mg 24 hr tablet, 300 mg PO DAILY antidepressant 03/06/17 06/09/18 09:30 History extended release 300 MG topiramate 200 mg tablet 100 mg PO BID headaches 03/06/17 06/09/18 09:30 History 100 MG vitamin B complex 1 ea PO DAILY supplement 03/06/17 Unknown History ascorbic acid (vitamin C) 500 mg 500 mg PO DAILY@0800 low vit c 06/07/18 Unknown History tablet citalopram 20 mg tablet 20 mg PO DAILY depression 06/07/18 Unknown History famotidine 20 mg tablet 20 mg PO DAILY reflux 06/07/18 06/09/18 09:30 History 20 MG levocetirizine 5 mg tablet 5 mg PO DAILY allergies 06/07/18 Unknown History montelukast 10 mg tablet 10 mg PO DAILY allergies 06/07/18 Unknown History gabapentin 100 mg capsule 200 mg PO TID 06/02/25 Unknown History galcanezumab-gnlm 120 mg/mL 120 mg subcut QMONTH 06/02/25 Unknown History subcutaneous pen injector (Emgality Pen) Allergy/AdvReac Type Severity Reaction Status Date / Time codeine AdvReac Intermediate Vomiting Verified 06/02/25 09:58 Family History Grandfather Cancer Brother Diabetes Father Hypertension Grandmother Hypertension Surgical History History of esophagogastroduodenoscopy (EGD) History of fusion of cervical spine History of cholecystectomy (~07/2019) H/O dilation and curettage Social History Smoking Status: Current every day smoker tobacco type: cigarettes alcohol intake: never substance use type: does not use seatbelt use: always do you feel safe at home: Yes Review of Systems (Anesthesia) ROS Narrative System reviewed and no additional complaints, except as documented.
[2025-06-16] MEDS: Magnesium 1 GM over 15 mins IV (08:22)
[2025-06-16] MEDS: Lactated Ringers 1,000 ML 15 ML IV (08:22)
--- NOTE | 2025-06-16 08:30 | RAD_ITS ---
PROCEDURE: FOOT 2 VIEWS 06/16/2025 REASON FOR EXAM: DOUBLE OSTEOTOMY OF LEFT FOOT TECHNIQUE: Procedure Code: RADFO2 Modality: DX Procedure: FOOT 2 VIEWS Laterality: Left foot COMPARISON: None FINDINGS: Intraoperative fluoroscopic services provided for osteotomy. Radiation dose: 5.28 mGy. Fluoroscopy: 6 minutes and 26 seconds. 11 images were submitted. RAD/Foot 2 Views IMPRESSION: Intraoperative fluoroscopic services provided for osteotomy and fusion of the 1 st metatarsal. Reading Location: [facility]
[2025-06-16] MEDS: Midazolam 2 MG/2 ML Syringe IV (09:18)
[2025-06-16] MEDS: Cefazolin 1 GM/5 ML Vial 2 GM IV (09:38)
[2025-06-16] MEDS: Lidocaine 1% (5 ml sdv) 5 ML Vial 8 ML IV (09:43)
--- NOTE | 2025-06-16 12:17 | PCM.POST.ANE ---
Anesthesia: Postop Eval I Current Vital Signs Temperature: 98.4 F Pulse Rate: 81 Blood Pressure: 157/86 Respiratory Rate: 16 Pulse Ox: 92 Assessment Airway patent: Yes Spontaneous unlabored respirations: Yes nausea: No Vomiting: No Anesthesia Complication: No Fluid Hydration Crystalloid volume administer (ml): 1,200 Total IV fluid infused: 1,200 Progress Note Anesthesia document: Postop Eval 1 completed: Yes
--- NOTE | 2025-06-16 13:19 | POSTOPAN2_ITS ---
Anesthesia Postop Eval I Sum Postop Eval Completion status Anesthesia document: Postop Eval 1 completed: Yes Anesthesia Postop Eval I Summary Anesthesia Postop Eval I Summary: Anesthesia Postop Eval I: Assessment Summary Airway patent Yes 06/16/25 12:17 PBX [email or web address] Spontaneous unlabored Yes 06/16/25 12:17 PBX WIRE [email or web address] respirations Mental status nausea No 06/16/25 12:17 PBX WIRE [email or web address] Vomiting No 06/16/25 12:17 PBX WIRE [email or web address] Anesthesia Postop Eval I: Fluid Summary Crystalloid volume administer 1,200 06/16/25 12:17 PBX WIRE [email or web address] (ml) Colloids volume administered ( ml) Blood Product volume administered (ml) Total IV fluid infused 1,200 06/16/25 12:17 PBX [email or web address] [email or web address] Anesthesia Postop Eval I: Summary Notes Anesthesia Complication No 06/16/25 12:17 PBX [email or web address] Anesthesia Complication Comment: Post-operative progress note Anesthesia: Postop Eval II Evaluation Mental status: Awake Pain Level: 0 nausea: No Vomiting: No
--- NOTE | 2025-06-16 13:19 | PCM.POSTANE2 ---
Anesthesia Postop Eval I Sum Postop Eval Completion status Anesthesia document: Postop Eval 1 completed: Yes Anesthesia Postop Eval I Summary Anesthesia Postop Eval I Summary: Anesthesia Postop Eval I: Assessment Summary Airway patent Yes 06/16/25 12:17 AVIATION ELECTRICAL TECHNICIAN.[email or web address] Spontaneous unlabored Yes 06/16/25 12:17 AVIATION ELECTRICAL TECHNICIAN.TNES respirations Mental status nausea No 06/16/25 12:17 AVIATION ELECTRICAL TECHNICIAN.TNES Vomiting No 06/16/25 12:17 AVIATION ELECTRICAL TECHNICIAN.TNES Anesthesia Postop Eval I: Fluid Summary Crystalloid volume administer 1,200 06/16/25 12:17 AVIATION ELECTRICAL TECHNICIAN.TNES (ml) Colloids volume administered ( ml) Blood Product volume administered (ml) Total IV fluid infused 1,200 06/16/25 12:17 AVIATION ELECTRICAL TECHNICIAN.TNES Anesthesia Postop Eval I: Summary Notes Anesthesia Complication No 06/16/25 12:17 AVIATION ELECTRICAL TECHNICIAN.TNES Anesthesia Complication Comment: Post-operative progress note Anesthesia: Postop Eval II Evaluation Mental status: Awake Pain Level: 0 nausea: No Vomiting: No
== END 2025-06-16 13:56 | disposition home or self-care (01) ==
LOC: SDC 07:29 → AC 07:30
PROVIDERS: Anesthesiology; PCP Family Medicine; Referring Provider Podiatrist Foot & Ankle Surgery; Visit Provider Podiatrist Foot & Ankle Surgery
PROC: (CPT 28298; principal; 2025-06-16 09:15)
DX: M20.12 Hallux valgus (acquired), left foot (principal); M20.40 Other hammer toe(s) (acquired), unspecified foot; E03.9 Hypothyroidism, unspecified; F17.200 Nicotine dependence, unspecified, uncomplicated; Z79.890 Hormone replacement therapy; Z79.899 Other long term (current) drug therapy; M21.612 Bunion of left foot; M79.2 Neuralgia and neuritis, unspecified; E66.9 Obesity, unspecified
CPT/HCPCS: 28298; 28285; 01480; 36415; 73620; 76000; 82962; 83735; 84443; 85027; 87077; 87081; 93005; C1713; J2405; J3475